=== PATIENT | male | born 1980 | race Caucasian/White ===

== ENCOUNTER 2017-10-24 14:09 | Inpatient (IN) | payer MEDICAID, SELFPAY ==
[2017-10-24] VITALS (12 sets, daily range): BP systolic 154–172; BP diastolic 96–111; PULSE 99–112; RESP 15–18; TEMP 36.6–36.8; O2SAT 95–100; BMI 34.8; BMI 34.3; BMI 34.4
--- NOTE | 2017-10-24 14:30 | EKG12_ITS ---
Test Reason : SOB Blood Pressure : / mmHG Vent. Rate : 104 BPM Atrial Rate : 104 BPM P-R Int : 132 ms QRS Dur : 098 ms QT Int : 376 ms P-R-T Axes : 025 038 045 degrees QTc Int : 494 ms Sinus tachycardia Nonspecific T wave abnormality Abnormal ECG Confirmed by LEAH VANN, NAJMA ([id number]), editorial director SARA TRAN ([id number] on 10/26/2017 1:23:27 PM Referred By: SHIRA Confirmed By:NAJMA LYNN MD
--- NOTE | 2017-10-24 14:30 | RAD_ITS ---
STUDY: X-RAY CHEST REASON FOR EXAM: Male, 37 years old. Shortness of breath TECHNIQUE: Frontal and lateral views of the chest COMPARISON: None. FINDINGS: The lungs are clear. There are no pleural effusions. There is no pneumothorax. The heart is enlarged. The visualized osseous structures are within normal limits. RAD/Chest PA and Lateral IMPRESSION: Cardiomegaly. Clear lungs. Electronically Signed: Pilo Kelly, at 15:33 EST Tel , Service support ,
[2017-10-24 14:46] LABS: Absolute Lymphocyte Count 1.15 X10^3/ul (0.83-4.51); Absolute Neutrophil Count 4.2 X10^3/uL (2.0-7.7); Basophil# 0.01 X10^3/uL; Basophil% 0.2 % (0-1); Eosinophil# 0.03 X10^3/uL; Eosinophils% 0.5 % (0-5); Hematocrit 38.1 % (40-54); Hemoglobin 11.9 g/dl (13.0-16.5); Lymphocyte # 1.15 X10^3/ul (4.0); Lymphocyte % 19.5 % (19-41); Mean Corp Hgb Conc 31.2 g/gl (32-36); Mean Corpuscular Hgb 24.8 pg (27.0-32.0); Mean Corpuscular Volume 79.4 fL (80-94); Mean Platelet Vol. 9.7 fl (6.2-12.0); Monocyte# 0.48 X10^3/uL; Monocyte% 8.1 % (0-10); Neutrophil # 4.21 X10^3/uL (2.7-7.7); Neutrophil % 71.5 % (47-70); Platelet Count 201 K/mm3 (150-450); RBC Distribution Width CV 15.2 % (11.6-14.6); RBC Distribution Width SD 43.6 fl (35.1-43.9); White Blood Count 5.9 K/mm3 (4.4-11.0)
[2017-10-24 14:47] LABS: POSITIVE COUNT NO; POSITIVE DIFFERENTIAL NO; POSITIVE MORPHOLOGY NO
[2017-10-24 14:56] LABS: D-Dimer Quantitative (DVT/PE) 0.56 FEU/ug/m (0.27-0.49)
--- NOTE | 2017-10-24 15:03 | CT_ITS ---
STUDY: CTA CHEST REASON FOR EXAM: Male, 37 years old. Dyspnea RADIATION DOSAGE (If Supplied By Facility): CTDIvol = ( 14.06 ) mGy, DLP = ( 688.02 ) mGycm TECHNIQUE: The examination was performed with the intravenous administration of 100mL ml of Isovue 370 contrast material. Post-processing of the angiographic images was performed, with multiplanar reformation and 3D reconstruction. Individualized dose optimization techniques were used for this CT. COMPARISON: None. FINDINGS: There are no filling defects within the pulmonary arteries to suggest pulmonary embolus. The pulmonary arteries are normal in caliber. There is a small left pleural effusion and moderate right pleural effusion with overlying atelectasis. There are no focal infiltrates. There is no pneumothorax. The heart is normal in size. There is a moderate pericardial effusion. There is no thoracic lymphadenopathy. Images through the upper abdomen demonstrate splenomegaly, with the spleen measuring 15.8 cm in maximal dimension. There are no destructive osseous lesions. CT/CTA Chest W/WO Contrast IMPRESSION: No evidence of pulmonary embolus. Moderate right pleural effusion and small left pleural effusion with overlying atelectasis. Moderate-sized pericardial effusion. Splenomegaly. Electronically Signed: Pilo Kelly, at 15:45 EST Tel , Service support ,
[2017-10-24 15:05] LABS: Anion Gap 8 (5-15); BUN 16 mg/dL (7-18); BUN/Creat Ratio 14.2 RATIO (10-20); Calcium,Total 8.8 mg/dL (8.5-10.1); Chloride 109 mmol/L (98-107); Creatinine, Serum 1.13 mg/dL (0.70-1.30); EST Glomerular Filtration Rate 77 mL/min (>60); Est Glom Filt Rate - Afr Amer 93 mL/min (>60); Estimated Creatinine Clearance 82.06 ml/min; Glucose 118 mg/dL (74-106); Sodium Level 143 mmol/L (136-145)
[2017-10-24 15:27] LABS: BNP,B-Type NATRIURETIC PEPTIDE 566.8 pg/mL (0-100)
--- NOTE | 2017-10-24 15:50 | ED.VISSUMM ---
- ER Visit Summary Date of Service: 10/24/17 Chief Complaint: [Shortness of breath] History of Present Illness: The patient is a 37 M [Zentz to the emergency department with worsening shortness of breath over last couple weeks. Patient started initially with some cough and congestion. Patient states that he developed swelling in both legs about a week ago that is out of the ordinary. Patient denies any chest pain. He denies recent travel or surgery. He denies any history of kidney disease. Patient states that he is unable to sleep lying flat and has been sleeping in a glider chair due to difficulty breathing while laying flat. She denies any fevers.] Physical Examination: [HEENT-PERRLA, EOMI. Cranial nerves II through XII grossly intact. TMs clear. Mucous membranes moist. No adenopathy. Patient does have mild JVD. Cardiovascular-regular rate and rhythm without murmur or ectopy Lungs-good aeration bilaterally. Patient has Rales in both bases. No significant tachypnea or accessory muscle use. Abdomen-normoactive bowel sounds, soft, nontender, no rebound or rigidity, no peritoneal signs. Extremities-intact ?4, normal range of motion, normal pulses, atraumatic]. Patient has +3 edema both lower extremities and symmetric. Test Results: [EKG obtained showed a sinus rhythm with a ventricular rate of 104 bpm with some nonspecific ST changes noted. CBC with differential showed a white count of 5.9, hemoglobin 11.9, hematocrit 38, platelets 201. Chemistries unremarkable. Troponin was 0.14. BNP was 567. D-dimer was elevated 0.56. Chest x-ray showed nothing acute. CTA of the chest was negative for PE but was noted patient had right moderate pleural effusion and a small left pleural effusion. Patient also had a moderate pericardial effusion.] Emergency Department Course and Treatment: [Patient case will be discussed with hand tufter on-call and hospitalist to evaluate patient for admission.] Treatment Plan: [Admit. At this point I did not proceed with diuretics until speaking with cardiology given the pericardial effusion.] Disposition: [Admit] Impression: [Bilateral pleural effusions Pericardial effusion CHF Mildly elevated troponin I] This note was generated with [employer] dictation software. It may contain incorrect words, spelling, and punctuation that were not noted in review of the chart prior to signing ED Disposition - Plan for ED Patient: Chief Complaint: Shortness of Breath Referrals: Augusto Mcneil MD [Primary Care Provider] -
--- NOTE | 2017-10-24 15:54 | ED.DCSUM_ITS ---
- ER Visit Summary Date of Service: 10/24/17 Chief Complaint: [Shortness of breath] History of Present Illness: The patient is a 37 M [Zentz to the emergency department with worsening shortness of breath over last couple weeks. Patient started initially with some cough and congestion. Patient states that he developed swelling in both legs about a week ago that is out of the ordinary. Patient denies any chest pain. He denies recent travel or surgery. He denies any history of kidney disease. Patient states that he is unable to sleep lying flat and has been sleeping in a glider chair due to difficulty breathing while laying flat. She denies any fevers.] Physical Examination: [HEENT-PERRLA, EOMI. Cranial nerves II through XII grossly intact. TMs clear. Mucous membranes moist. No adenopathy. Patient does have mild JVD. Cardiovascular-regular rate and rhythm without murmur or ectopy Lungs-good aeration bilaterally. Patient has Rales in both bases. No significant tachypnea or accessory muscle use. Abdomen-normoactive bowel sounds, soft, nontender, no rebound or rigidity, no peritoneal signs. Extremities-intact ?4, normal range of motion, normal pulses, atraumatic]. Patient has +3 edema both lower extremities and symmetric. Test Results: [EKG obtained showed a sinus rhythm with a ventricular rate of 104 bpm with some nonspecific ST changes noted. CBC with differential showed a white count of 5.9, hemoglobin 11.9, hematocrit 38, platelets 201. Chemistries unremarkable. Troponin was 0.14. BNP was 567. D-dimer was elevated 0.56. Chest x-ray showed nothing acute. CTA of the chest was negative for PE but was noted patient had right moderate pleural effusion and a small left pleural effusion. Patient also had a moderate pericardial effusion.] Emergency Department Course and Treatment: [Patient case will be discussed with bulb grader on-call and hospitalist to evaluate patient for admission.] Treatment Plan: [Admit. At this point I did not proceed with diuretics until speaking with cardiology given the pericardial effusion.] Disposition: [Admit] Impression: [Bilateral pleural effusions Pericardial effusion CHF Mildly elevated troponin I] This note was generated with [employer] dictation software. It may contain incorrect words, spelling, and punctuation that were not noted in review of the chart prior to signing ED Disposition - Plan for ED Patient: Chief Complaint: Shortness of Breath Referrals: Augusto Mcneil MD [Primary Care Provider] -
--- NOTE | 2017-10-24 16:45 | HP.PCM_ITS ---
Problem List (1) Congestive heart failure Status: Acute (2) Diabetes Status: Chronic (3) HTN (hypertension) Status: Chronic History of Present Illness Date of Admission: 10/24/17 Chief Complaint: SOB The patient is a 37 year old M with a history of diabetes t2 and HTN who presents to the ER with increased SOB over the past week. He felt ill about 2 weeks ago and thought he may have had a sinus infection, then about a week ago he began getting progressively more SOB. He has also had swelling in his BLE for the past 5 days. He reports orthopnea and PND over the past week as well. He has no prior history of heart disease. He has a family hx significant for cardiomyopathy, his dad had a pacemaker/defibrillator placed in his 40s. In the ER he has significantly elevated blood pressure, and a CTA with pericardial effusion and pleural effusions, an elevated troponin and elevated BNP. EKG was negative. He remains off O2 with good O2 sats but is tachycardic and sob. His BP is significantly elevated and he reports that it has not been well controlled when he is at his doctors appointments. Last A1C reportedly in the 7 range. No fevers or chills. He has a productive cough. [] Past Medical History Past Medical History (Chronic Problems): Chronic Problems Diabetes (Chronic) HTN (hypertension) (Chronic) Allergies No Known Allergies Allergy (Verified 10/24/17 14:12) Home Medications: Ambulatory Orders Medication Instructions Recorded Glimepiride [Amaryl] 4 mg PO DAILY 10/24/17 Lisinopril [Zestril] 40 mg PO DAILY 10/24/17 Metformin HCl [Glucophage] 1,000 mg PO BIDCM 10/24/17 Lives: Alone Smoking Status: Never smoker Tobacco Use: Non-smoker Alcohol: Rare Drugs: None - *Family History Paternal History Items: Heart Disease Maternal History Items: No pertinent history Review of Systems Constitutional: Reports: Malaise, Weakness, Fatigue. Denies: Chills, Fever, Weight Change HEENT: Denies: Head Aches, Sinus Congestion, Sinus Drainage Cardiovascular: Reports: Edema, Orthopnea, Paroxysmal Noc. Dyspnea. Denies: Chest Pain, Palpitations Respiratory: Reports: Cough, Shortness of Breath, Shortness of breath at rest, Shortness of breath upon exertion, Sputum production Gastrointestinal: Denies: Abdominal Pain, Nausea, Vomiting Genitourinary: Denies: Dysuria Musculoskeletal: Denies: Joint Pain, Joint Tenderness Skin: Denies: Rash, Wounds Neurological: Denies: Numbness, Tingling, Focal weakness Psychiatric: Denies: Anxiety, Depression, Homicidal Ideations, Suicidal Ideations Hematologic/ Lymphatic: Denies: Easy Bruising, Easy Bleeding VTE Information - Inpt Only VTE Present on Admission: No VTE Mechan Device Prophylaxis: SCD's VTE Pharm Prophylaxis ordered?: Yes Patient Problems: Active and Suspected Problems Congestive heart failure (Acute) - Physical Exam General: Alert, Oriented x3, Cooperative HEENT: Atraumatic, PERRLA, EOMI, Normocephalic Neck: Supple, No JVD, Negative Carotid Bruits Lungs: Clear to auscultation, Normal air movement Cardiovascular: Regular rate, Gallops - S3 audible, Tachycardic Abdomen: Bowel Sounds Present, Soft, Non Tender Extremities: No edema, Capillary Refill Less than 3 Seconds, Edema - 3+ pitting edema BLE up to the knee Skin: No rashes, No breakdown Musculoskeletal: No Tenderness to Palpation of Joints or Extremities Neurological: Cranial nerves II-XII grossly intact Psych/Mental Status: Normal Affect, Appropriate, Alert and oriented to time, place, person, mood and affect Vital Signs Temp Pulse Resp BP Pulse Ox 98 F 101 H 15 164/96 H 99 10/24/17 14:10 10/24/17 15:16 10/24/17 15:16 10/24/17 15:16 10/24/17 15:16 Oxygen Delivery Method Room Air Weight: 100.9 kg Body Mass Index (BMI) 34.8 Laboratory Tests Past 24 Hrs 10/24/17 10/24/17 10/24/17 14:35 14:35 14:35 WBC 5.9 RBC 4.80 Hgb 11.9 L Hct 38.1 L MCV 79.4 L MCH 24.8 L MCHC 31.2 L RDW 15.2 H RDW Differential 43.6 Plt Count 201 MPV 9.7 Immature Gran % (Auto) 0.200 Neut % (Auto) 71.5 H Lymph % (Auto) 19.5 [place] % (Auto) 8.1 Eos % (Auto) 0.5 Baso % (Auto) 0.2 Absolute Neuts (auto) 4.2 Absolute Lymphs (auto) 1.15 Total Counted Not Reportable D-Dimer Quant (PE/DVT) 0.56 H* Sodium 143 Potassium 4.0 Chloride 109 H Carbon Dioxide 26.0 Anion Gap 8 BUN 16 Creatinine 1.13 Estim Creat Clear Calc 82.06 Est GFR (MDRD) Af Amer 93 Est GFR (MDRD) Non-Af 77 BUN/Creatinine Ratio 14.2 Glucose 118 H Calcium 8.8 Troponin I 0.14 H B-Natriuretic Peptide 10/24/17 14:35 WBC RBC Hgb Hct MCV MCH MCHC RDW RDW Differential Plt Count MPV Immature Gran % (Auto) Neut % (Auto) Lymph % (Auto) [place] % (Auto) Eos % (Auto) Baso % (Auto) Absolute Neuts (auto) Absolute Lymphs (auto) Total Counted D-Dimer Quant (PE/DVT) Sodium Potassium Chloride Carbon Dioxide Anion Gap BUN Creatinine Estim Creat Clear Calc Est GFR (MDRD) Af Amer Est GFR (MDRD) Non-Af BUN/Creatinine Ratio Glucose Calcium Troponin I B-Natriuretic Peptide 566.8 H Assessment/Plan Active and Suspected Problems Congestive heart failure (Acute) 1. Acute CHF exacerbation - subtype unclear - no prior hx. Pt presents with SOB , orthopnea, and PND with severely swollen BLE, an elevated BNP, and pericardial effusion and pleural effusions on CTA of the chest, and cardiomegaly on CXR. He has a family hx with cardiomyopathy. He will be started on IV lasix and cardiology will be consulted. We will obtain a 2D echo. Sodium and fluid restriction, TEQUILA wraps to BLE, strict I/Os. Aerosols prn for SOB. Not currently requiring O2. He is already on an TEQUILA inhibitor. Will defer starting beta cassia in acute phase, but he is tachy at admission. Will maintain on tele. Audible S3 on exam. 2. Indeterminate troponin - negative EKG. Cycle troponin. Repeat EKG in AM. 3. T2DM - hold metformin as has had contrast and will be diuresed. Sliding scale coverage. Reported last A1C around 7. 4. HTN - poorly controlled. Possibly hypertensive cardiomyopathy. 5. Mild microcytic anemia - check iron studies. DVT ppx: lovenox, SCDs This patient was seen by Jerome Gunter PA-C under the supervision of Doctor Char.
[2017-10-24 17:04] LABS: Bacteria 0 SEEN /hpf (None Seen); Mucous, Urine 0 SEEN /hpf (<or=2+); Squamous Epithelial Cells - UA 0 SEEN /hpf (0-5); White Blood Cells 0 SEEN /hpf (0-5)
[2017-10-24 17:17] LABS: Color, Urine Yellow (Yellow); Glucose, Dipstick Normal (Normal); Ketone-Dipstick Negative (Negative); Leukocyte Esterase-Dipstick Negative /ul (Negative); Nitrite-Dipstick Negative (Negative); Occult Blood-Urine 150 /ul (Negative); Protein-Dipstick 30 mg/dl (Negative); Urine Bilirubin Dipstick Negative (Negative); Urine Clarity Clear (Clear); Urine Urobilinogen Normal (Normal)
[2017-10-24 17:29] LABS: Red Blood Cells-Urine 0-5 SEEN /hpf (0-5)
--- NOTE | 2017-10-24 17:31 | ECHOD_ITS ---
Reason For Study: SOB, CHF Procedure This was a 2D Doppler, Color Flow transthoracic echocardiogram. The exam was of adequate technical quality. Exam performed portable in patient room. Left Ventricle Mildly dilated left ventricle. Severe global left ventricular systolic dysfunction. The estimated ejection fraction is 25 %. Right Ventricle Normal RV size. Normal systolic function. Atria The left atrium is mildly enlarged. Borderline enlarged right atrium. No doppler evidence for ASD. Mitral Valve There is no mitral annular calcification. Mild diffuse mitral valve thickening. Mild papillary muscle dysfunction of the mitral valve. Moderately severe (3+) eccentric mitral valve insufficiency. Tricuspid Valve Normal tricuspid valve. Moderate (2+) eccentric tricuspid valve insufficiency. Right ventricular systolic pressure estimated to be 42 mmHg. Aortic Valve Trisinus/trileaflet aortic valve. Normal aortic valve. Pulmonic Valve Normal pulmonic valve. Trivial pulmonic valve insufficiency. Great Vessels Normal sized aortic root. Pericardium/Pleural Small to moderate pericardial effusion. There are no echocardiographic indications of cardiac tamponade. MMode/2D Measurements & Calculations LVIDd: 5.4 cm IVSd: 1.3 cm Ao root diam: 3.1 cm LVIDs: 4.8 cm LVPWd: 1.2 cm LA dimension: 4.5 cm RVDd: 4.3 cm FS: 11.2 % LAV(MOD-sp4): 72.7 ml EDV(MOD-sp4): 178.9 ml EDV(MOD-sp2): 171.2 ml ESV(MOD-sp4): 120.2 ml EF(MOD-sp2): 33.4 % EF(MOD-sp4): 32.8 % SV(MOD-sp4): 58.7 ml SV(MOD-sp2): 57.3 ml LA A4 area: 24.2 cm2 RA A4 area: 18.8 cm2 Doppler Measurements & Calculations MV E max manuel: 118.7 cm/sec Lat Peak E' Manuel: 9.8 cm/sec Med Peak E' Manuel: 5.2 cm/sec MV A max manuel: 51.9 cm/sec E/E' lat: 12.1 E/E' med: 22.7 MV E/A: 2.3 Ao V2 max: 89.2 cm/sec LV V1 max: 60.0 cm/sec PA V2 max: 54.9 cm/sec Ao max P.2 mmHg LV V1 max P.4 mmHg TR max manuel: 310.9 cm/sec TR max P.7 mmHg Interpretation Summary Mildly dilated left ventricle. Severe global left ventricular systolic dysfunction. The estimated ejection fraction is 25 %. The left atrium is mildly enlarged. Borderline enlarged right atrium. Mild diffuse mitral valve thickening. Mild papillary muscle dysfunction of the mitral valve. Moderately severe (3+) eccentric mitral valve insufficiency. Moderate (2+) eccentric tricuspid valve insufficiency. Trivial pulmonic valve insufficiency. Small to moderate pericardial effusion. There are no echocardiographic indications of cardiac tamponade. Right ventricular systolic pressure estimated to be 42 mmHg. Transmitral diastolic flow velocities suggest diastolic dysfunction. Ordering Physician: Gabriele Pardo Performed By: Philomena Mccrary, ENISHA, RVT
--- NOTE | 2017-10-24 17:34 | PCM.CONS.C ---
Problem List (1) Congestive heart failure Status: Acute (2) Pericardial effusion Status: Acute (3) Cardiomyopathy Status: Acute (4) Valvular heart disease Status: Acute (5) HTN (hypertension) Status: Chronic (6) Diabetes Status: Chronic Reason for Consult Date of Consultation: 10/24/17 History of Present Illness: The patient is a 37 year old white male with a past medical history of hypertension and diabetes mellitus who presents for evaluation of shortness of breath/dyspnea, orthopnea, peripheral pitting edema, with subsequent findings of marked hypertension, and abnormal chest x-ray/chest CT scan suggesting pericardial effusion. The patient states that he has become progressively short of breath and dyspneic, especially over the last week, leading to symptoms compatible with orthopnea and PND, as well as physical examination findings compatible with progressive bilateral lower extremity peripheral pitting edema. He has denied obvious fever, chills, night sweats, or cough with sputum production. There has been no associated chest discomfort. There has been no near syncope or syncope. He notes his blood pressure has been somewhat challenging to control. He has remained on antihypertensive therapy medication with no change in medication regimen or dosage recently. He continues to remain on medical therapy for his diabetes. He presented to the emergency department for the aforementioned concerns. On evaluation he was noted to be markedly hypertensive. He was noted to have evidence of bilateral peripheral pitting edema. His laboratory studies suggested an elevated BNP level and an elevated d-dimer. He underwent chest x-ray and chest CT scan. He had no great vessel disease or thromboembolic disease based upon the preliminary report, however, there were concerns of a pericardial effusion. He states he has had no cardiovascular testing in the past to the best of his recollection. Past Medical History Allergies/Adverse Reactions: Allergies No Known Allergies Allergy (Verified 10/24/17 14:12) Home Medications: Ambulatory Orders Medication Instructions Recorded Glimepiride [Amaryl] 4 mg PO DAILY 10/24/17 Lisinopril [Zestril] 40 mg PO DAILY 10/24/17 Metformin HCl [Glucophage] 1,000 mg PO BIDCM 10/24/17 Past Medical History (Chronic Problems): Chronic Problems Diabetes (Chronic) HTN (hypertension) (Chronic) - *Family History Paternal History Items: Heart Disease Maternal History Items: No pertinent history Lives: Alone Smoking Status: Never smoker Tobacco Use: Non-smoker Alcohol: Rare Drugs: None Review of Systems - Review of Systems General: Denies: Fever, Night Sweats, Fatigue Cardiovascular: Reports: Shortness of Breath, Shortness of Breath at Rest, Orthopnea, PND. Denies: Chest Discomfort, Peripheral Edema, Palpitations, Lightheadedness, Dizziness, Near Syncope, Syncope Respiratory: Reports: Shortness of Breath. Denies: Cough, Sputum Production, Hemoptysis Gastrointestinal: Denies: Hematemesis, Hematochezia, Melena Genitourinary: Denies: Dysuria, Hematuria Skin: Denies: Rash Subjectve: This is a 37-year-old white male who appears to be resting comfortably at the moment in no acute distress. Objective: Vital Signs Temp Pulse Resp BP Pulse Ox 98 F 103 H 15 172/111 H 99 10/24/17 14:10 10/24/17 16:45 10/24/17 16:45 10/24/17 16:45 10/24/17 16:45 Oxygen Delivery Method Room Air General: Awake, Alert, Oriented x 3, Cooperative, No Acute Distress Neck: No JVD Lungs: Diminished Simon Bases Cardiovascular: Regular Rhythm, Normal S1, Normal S2, Positive S4 Murmur Murmur: Grade 3/6, Soft, Holosystolic, LLSB, [place], Axilla Vascular: No Carotid Bruits Abdomen: Bowel Sounds Present, Soft, Non Tender Extremities: Moderate RLE Edema, Moderate LLE Edema Neurological: No Focal Motor or Sensory Deficit Rhythm: Sinus rhythm EKG: Sinus rhythm; nonspecific T-wave abnormality ECHO: Portable hand-held bedside limited transthoracic echocardiogram: Left ventricle: Appears globally hypokinetic; mitral valve: Insufficient-mild to moderate; tricuspid valve: Insufficient-mild to moderate; pericardial space: Mild to moderate pericardial effusion with no echocardiographic evidence of cardiac tamponade physiology (I. E. Early RA/RV collapse); formal transthoracic echocardiogram pending CXR: As noted above Chest CT Scan: As noted above Assessment/Plan 1. Congestive heart failure The patient presents with signs and symptoms and objective findings compatible with congestive heart failure. Based upon his bedside portable handheld limited echocardiographic images there is concern of diminished LV systolic function. The etiology is uncertain at this time. There are concerns this may be related to underlying hypertensive heart disease based upon the patient's blood pressure recordings. Also, based on the patient's history of diabetes mellitus there may be concern of microvascular disease and subsequent cardiomyopathy. However, other etiologies, based on the patient's risk factors such as underlying premature CAD, or primary cardiomyopathies such as viral mediated events, etc., cannot be excluded at this time. At the present time the patient will be placed in the hospital for further evaluation and care. He will continue cardiac rhythm monitoring, laboratory studies, ECG follow-up, and he is pending a formal transthoracic echocardiogram. He may eventually need further noninvasive or invasive studies to define his cardiovascular disease and assist with diagnosis and care. In the interim he will initiate medical management. This may include nitrates as needed, beta-blockers as he is stabilized, diuretics with electrolyte supplementation, afterload reducing agents, etc. During this time the patient will be monitored for symptomatic improvement. However he will be monitored for any obvious adverse response as well. 2. Pericardial effusion The patient does have an underlying pericardial effusion. This may be secondary to the findings of the underlying cardiomyopathy and congestive heart failure. He does not appear to demonstrate evidence of pericardial tamponade physiology at this time. As he undergoes evaluation and care for his CHF, with respect to diuretic therapy, he will continue to be monitored for any obvious adverse response including marked hypotension that may indicate a change in his underlying cardiac physiology that would warrant further evaluation and care. 3. Cardiomyopathy Upon the patient's evaluation thus far there is concern of an underlying cardiomyopathy. A more formal evaluation with a formal transthoracic echocardiogram is pending. Again the etiology appears unclear at this time. The possibilities include the aforementioned possibilities. At the present time he will need to continue to be monitored. He will need continued medical therapy. As his clinical course stabilizes this will include agents such as beta blockers and his afterload reducing agents. Again, as his clinical course proceeds, he may need additional noninvasive or invasive studies to further define his cardiomyopathy, assist with diagnosis, and therapy. 4. Valvular heart disease He does have underlying valvular heart disease based on examination in the aforementioned bedside portable hand-held limited echocardiographic images. These findings suggest mild to moderate MR/TR. This may be secondary to his underlying appearance of a cardiomyopathy. This will need to be followed over time by examination and echocardiographic studies. 5. Hypertension He is noted to be markedly hypertensive. Again this may be an etiology for his presentation and subsequent findings. He will need to be treated medically. His medications may need to be adjusted to bring his blood pressure under better control. 6. Diabetes mellitus Continue evaluation care per internal medicine. Comment: The above was discussed and reviewed with the patient, Dr. Judd of the [facility] emergency department staff, and Dr. Olson of the [facility] hospitalist staff. This note was generated with [employer] software. Every effort was made to ensure accuracy, however, computerized storage garage attendant mistakes may persist.
[2017-10-24 17:51] LABS: Bedside Glucose 71 mg/dL (70-110)
[2017-10-24] MEDS: Aspirin 81 MG TAB.CHEW PO (18:21)
[2017-10-24] MEDS: Furosemide 20 MG/2 ML VIAL IV (21:36)
[2017-10-24] MEDS: 0.9% NaCl Peripheral Flush Adult/Peds IV (21:39)
[2017-10-24 21:56] LABS: Bedside Glucose 105 mg/dL (70-110)
[2017-10-25] VITALS (15 sets, daily range): BP systolic 135–152; BP diastolic 88–106; PULSE 89–106; RESP 16–18; TEMP 36.2–37; O2SAT 95–100
--- NOTE | 2017-10-25 01:05 | NURSING ---
PT CALLED THIS RN INTO ROOM STATED I FEEL LIKE MY BLOOD PRESSURE IS LOW. BG 67, SNACK PROVIDED.
[2017-10-25 02:02] LABS: Bedside Glucose 67 mg/dL (70-110)
[2017-10-25 02:02] LABS: Bedside Glucose 104 mg/dL (70-110)
[2017-10-25] MEDS: 0.9% NaCl Peripheral Flush Adult/Peds IV ×4 (05:38→21:55)
[2017-10-25] MEDS: Furosemide 20 MG/2 ML VIAL IV ×3 (05:38→21:54)
--- NOTE | 2017-10-25 05:55 | EKG12_ITS ---
Test Reason : AM EKG Blood Pressure : / mmHG Vent. Rate : 102 BPM Atrial Rate : 102 BPM P-R Int : 138 ms QRS Dur : 096 ms QT Int : 356 ms P-R-T Axes : 029 031 060 degrees QTc Int : 463 ms Sinus tachycardia Nonspecific T wave abnormality Abnormal ECG When compared with ECG of 24-OCT-2017 14:41, MANUAL COMPARISON REQUIRED, DATA IS UNCONFIRMED Confirmed by TERESA VANN, KALEE ([id number]), editor greeting card SARA TRAN ([id number]) on 10/27/2017 2:01:14 PM Referred By: DR VAZQUEZ Confirmed By:KALEE MOORE MD
[2017-10-25 06:04] LABS: Anion Gap 7 (5-15); BUN 16 mg/dL (7-18); BUN/Creat Ratio 13.8 RATIO (10-20); Calcium,Total 8.8 mg/dL (8.5-10.1); Chloride 105 mmol/L (98-107); Cholesterol 100 mg/dL (200); Creatinine, Serum 1.16 mg/dL (0.70-1.30); EST Glomerular Filtration Rate 74 mL/min (>60); Est Glom Filt Rate - Afr Amer 90 mL/min (>60); Estimated Creatinine Clearance 79.93 ml/min; Glucose 103 mg/dL (74-106); High Density Lipoprotein 27 mg/dL; Potassium 3.7 mmol/L (3.5-5.1); Sodium Level 140 mmol/L (136-145); Triglycerides 90 mg/dL; Very Low Density Lipoprotein 18 mg/dL (5-40)
[2017-10-25] MEDS: Labetalol 20 MG/4 ML Vial 5 MG IV (06:13)
[2017-10-25 07:06] LABS: Bedside Glucose 108 mg/dL (70-110)
[2017-10-25 08:48] LABS: Ferritin 32 ng/mL (26-388); Iron 28 ug/dL (65-175); Iron Binding Capacity,Total 291 ug/dL (250-450); PERCENT IRON SATURATION 9.6 % (15.0-55.0)
[2017-10-25] MEDS: Lisinopril 40 MG Tablet PO (10:23)
[2017-10-25] MEDS: Aspirin 81 MG TAB.CHEW PO (10:23)
[2017-10-25] MEDS: Glimepiride 4 MG Tablet PO (10:23)
[2017-10-25] MEDS: Carvedilol 3.125 MG TABLET PO ×2 (10:24→21:53)
[2017-10-25] MEDS: Glucerna Shake 120 ML LIQUID PO (10:25)
--- NOTE | 2017-10-25 12:12 | PN_ITS ---
Patient Problems: Active and Suspected Problems Congestive heart failure (Acute) Cardiomyopathy (Acute) Pericardial effusion (Acute) Valvular heart disease (Acute) Subjective: Pt reports improvement in his SOB and orthopnea overnight. He has no O2 requirement still. Legs are significantly less swollen than at admission. He is not sure if he is emptying his bladder fully so we will check post void, no prior prostate issues. No chest pain or heaviness. No palp. - Physical Exam General: Alert, Oriented x3, Cooperative HEENT: Atraumatic, PERRLA, EOMI, Normocephalic Neck: Supple, No JVD, Negative Carotid Bruits Lungs: Clear to auscultation, Normal air movement Cardiovascular: Regular rate, Murmur - S3, Tachycardic Abdomen: Bowel Sounds Present, Soft, Non Tender Extremities: Capillary Refill Less than 3 Seconds, Edema - improved. 2+ pitting edema BLE Skin: No rashes, No breakdown Musculoskeletal: No Tenderness to Palpation of Joints or Extremities Neurological: Cranial nerves II-XII grossly intact Psych/Mental Status: Normal Affect, Appropriate, Alert and oriented to time, place, person, mood and affect Vital Signs Temp Pulse Resp BP Pulse Ox 97.8 F 95 18 149/93 H 95 10/25/17 10:01 10/25/17 10:01 10/25/17 10:01 10/25/17 10:01 10/25/17 10:01 Oxygen Delivery Method Room Air Weight: 98.9 kg Body Mass Index (BMI) 34.3 Intake and Output for Last 24 Hours 10/23/17 10/24/17 10/25/17 23:59 23:59 23:59 Intake Total 240 / 240 450 / 450 Output Total 1900 / 1900 Balance 240 / 240 -1450 / -1450 Laboratory Tests Past 24 Hrs 10/24/17 10/24/17 10/25/17 18:20 22:30 04:30 Sodium Potassium Chloride Carbon Dioxide Anion Gap BUN Creatinine Estim Creat Clear Calc Est GFR (MDRD) Af Amer Est GFR (MDRD) Non-Af BUN/Creatinine Ratio Glucose Calcium Iron 28 L TIBC 291 Iron Saturation 9.6 L Ferritin 32 Troponin I 0.14 H 0.15 H Triglycerides Cholesterol LDL Cholesterol VLDL Cholesterol HDL Cholesterol 10/25/17 10/25/17 04:33 04:33 Sodium 140 Potassium 3.7 Chloride 105 Carbon Dioxide 28.0 Anion Gap 7 BUN 16 Creatinine 1.16 Estim Creat Clear Calc 79.93 Est GFR (MDRD) Af Amer 90 Est GFR (MDRD) Non-Af 74 BUN/Creatinine Ratio 13.8 Glucose 103 Calcium 8.8 Iron TIBC Iron Saturation Ferritin Troponin I 0.14 H Triglycerides 90 Cholesterol 100 LDL Cholesterol 55 VLDL Cholesterol 18 HDL Cholesterol 27 L POC Glucose 10/25/17 10/25/17 10/25/17 07:00 01:57 01:01 POC Glucose 108 104 67 L 10/24/17 10/24/17 21:32 17:47 POC Glucose 105 71 Assessment/Plan Active and Suspected Problems Congestive heart failure (Acute) Cardiomyopathy (Acute) Pericardial effusion (Acute) Valvular heart disease (Acute) 1. Acute CHF exacerbation - subtype unclear - no prior hx. Pt presented with SOB , orthopnea, and PND with severely swollen BLE, an elevated BNP, and pericardial effusion and pleural effusions on CTA of the chest, and cardiomegaly on CXR. He is improving on IV lasix with less orthopnea. He was seen by Dr. Murphy last night and had a bedside ultrasound. He will have a 2d echo tomorrow. Troponin is flat but indeterminate. -He has good output. -D dimer was elevated, CTA neg for PE. -remains tachy, will be started on coreg. -lisinopril increased. -lungs clear on exam. -also started on aspirin -LDL is at goal -check post void, he is unsure about completely emptying his bladder. 2. Indeterminate troponin - negative EKG. No CP. Flat. 3. T2DM - Glycemic control is good. metformin held as has had contrast and will be diuresed. Sliding scale coverage. Reported last A1C around 7. 4. HTN - poorly controlled at home, improving. Possibly hypertensive cardiomyopathy. Medications adjusted as per #1. 5. Mild microcytic anemia - iron studies demonstrate iron deficiency, will begin PO iron. DVT ppx: lovenox, SCDs This patient was seen by Jerome Gunter PA-C under the supervision of Doctor Pardo.
[2017-10-25 12:56] LABS: Bedside Glucose 147 mg/dL (70-110)
--- NOTE | 2017-10-25 13:26 | PN.CARD_ITS ---
Subjectve: The patient states he is breathing better today. However he still cannot lie supine for any prolonged period of time. He continues with lower extremity edema although he states this is improved somewhat. Objective: Vital Signs Temp Pulse Resp BP Pulse Ox 97.8 F 95 18 149/93 H 95 10/25/17 10:01 10/25/17 10:01 10/25/17 10:01 10/25/17 10:01 10/25/17 10:01 Oxygen Delivery Method Room Air Weight: 218 lb 0.595 oz Body Mass Index (BMI) 34.3 Intake and Output for Last 24 Hours 10/23/17 10/24/17 10/25/17 23:59 23:59 23:59 Intake Total 240 / 240 1050 / 1050 Output Total 3200 / 3200 Balance 240 / 240 -2150 / -2150 General: Awake, Alert, Oriented x 3, Cooperative, No Acute Distress Neck: No JVD Lungs: Diminished [place]mon Bases Cardiovascular: Regular Rhythm, Normal S1, Normal S2 Murmur Murmur: Grade 3/6, Soft, Holosystolic, LLSB, [place], Axilla Vascular: No Carotid Bruits Abdomen: Bowel Sounds Present, Soft, Non Tender Extremities: Mild RLE Edema, Mild LLE Edema Neurological: No Focal Motor or Sensory Deficit 10/24/17 18:20: Troponin I 0.14 H 10/24/17 22:30: Troponin I 0.15 H 10/25/17 04:30: Iron 28 L, TIBC 291, Iron Saturation 9.6 L, Ferritin 32 10/25/17 04:33: Sodium 140, Potassium 3.7, Chloride 105, Carbon Dioxide 28.0, Anion Gap 7, BUN 16, Creatinine 1.16, Est GFR (MDRD) Af Amer 90, Est GFR (MDRD) Non-Af 74, BUN/Creatinine Ratio 13.8, Glucose 103, Calcium 8.8, Triglycerides 90 , Cholesterol 100, LDL Cholesterol 55, VLDL Cholesterol 18, HDL Cholesterol 27 L 10/25/17 04:33: Troponin I 0.14 H Rhythm: Sinus rhythm EKG: Sinus rhythm; nonspecific T-wave abnormality Assessment/Plan 1. Congestive heart failure The patient presents with signs and symptoms and objective findings compatible with congestive heart failure. Based upon his bedside portable handheld limited echocardiographic images there is concern of diminished LV systolic function. The etiology is uncertain at this time. There are concerns this may be related to underlying hypertensive heart disease based upon the patient's blood pressure recordings. Also, based on the patient's history of diabetes mellitus there may be concern of microvascular disease and subsequent cardiomyopathy. However, other etiologies, based on the patient's risk factors such as underlying premature CAD, or primary cardiomyopathies such as viral mediated events, etc., cannot be excluded at this time. He continues to be monitored. He continues medical management. This includes IV diuretics. He has had positive urine output. He will initiate additional medical therapy with beta-blockers. His TEQUILA inhibitor will be divided on a twice daily basis. During this time the patient will be monitored for symptomatic improvement. However he will be monitored for any obvious adverse response as well. 2. Pericardial effusion The patient does have an underlying pericardial effusion. This may be secondary to the findings of the underlying cardiomyopathy and congestive heart failure. He does not appear to demonstrate evidence of pericardial tamponade physiology at this time. As he undergoes evaluation and care for his CHF, with respect to diuretic therapy, he will continue to be monitored for any obvious adverse response including marked hypotension that may indicate a change in his underlying cardiac physiology that would warrant further evaluation and care. 3. Cardiomyopathy Upon the patient's evaluation thus far there is concern of an underlying cardiomyopathy. A more formal evaluation with a formal transthoracic echocardiogram is pending. Again the etiology appears unclear at this time. The possibilities include the aforementioned possibilities. At the present time he will need to continue to be monitored. He will need continued medical therapy. Again, as his clinical course proceeds, he may need additional noninvasive or invasive studies to further define his cardiomyopathy, assist with diagnosis, and therapy. 4. Valvular heart disease He does have underlying valvular heart disease based on examination in the aforementioned bedside portable hand-held limited echocardiographic images. These findings suggest mild to moderate MR/TR. This may be secondary to his underlying appearance of a cardiomyopathy. This will need to be followed over time by examination and echocardiographic studies. 5. Hypertension He is noted to be markedly hypertensive. Again this may be an etiology for his presentation and subsequent findings. He will need to be treated medically. His medications may need to be adjusted to bring his blood pressure under better control. 6. Diabetes mellitus Continue evaluation care per internal medicine. Comment: The above was discussed and reviewed with the patient, his family members present, and Dr. Pardo. This note was generated with [employer] software. Every effort was made to ensure accuracy, however, computerized patient flow coordinator mistakes may persist.
[2017-10-25 16:46] LABS: Bedside Glucose 127 mg/dL (70-110)
[2017-10-25 21:56] LABS: Bedside Glucose 135 mg/dL (70-110)
[2017-10-26] VITALS (11 sets, daily range): BP systolic 124–143; BP diastolic 81–95; PULSE 83–113; RESP 16–18; TEMP 36.2–36.7; O2SAT 98–100
[2017-10-26 06:39] LABS: Anion Gap 9 (5-15); BUN 18 mg/dL (7-18); BUN/Creat Ratio 15.1 RATIO (10-20); Calcium,Total 8.7 mg/dL (8.5-10.1); Chloride 105 mmol/L (98-107); Creatinine, Serum 1.19 mg/dL (0.70-1.30); EST Glomerular Filtration Rate 72 mL/min (>60); Est Glom Filt Rate - Afr Amer 87 mL/min (>60); Estimated Creatinine Clearance 77.92 ml/min; Glucose 96 mg/dL (74-106); Potassium 3.7 mmol/L (3.5-5.1); Sodium Level 140 mmol/L (136-145)
[2017-10-26] MEDS: Furosemide 20 MG/2 ML VIAL IV ×2 (06:55→17:20)
[2017-10-26] MEDS: 0.9% NaCl Peripheral Flush Adult/Peds IV ×2 (06:58→17:20)
[2017-10-26 07:05] LABS: Bedside Glucose 91 mg/dL (70-110)
[2017-10-26] MEDS: Glimepiride 4 MG Tablet PO (07:45)
[2017-10-26] MEDS: Ferrous Sulfate 325 MG Tablet PO (07:45)
[2017-10-26] MEDS: Aspirin 81 MG TAB.CHEW PO (07:45)
[2017-10-26] MEDS: Lisinopril 20 MG Tablet PO ×2 (10:27→21:52)
[2017-10-26] MEDS: Carvedilol 6.25 MG Tablet PO ×2 (10:27→21:52)
--- NOTE | 2017-10-26 11:23 | PN_ITS ---
Patient Problems: Active and Suspected Problems Congestive heart failure (Acute) Cardiomyopathy (Acute) Pericardial effusion (Acute) Valvular heart disease (Acute) Subjective: Pt continues to improve. He was able to lay flat for the echo and feels less pressure when laying flat. He is less SOB and BLE edema is significantly improved. Urine output is good. He is agreeable to heart cath tomorrow. - Physical Exam General: Alert, Oriented x3, Cooperative HEENT: Atraumatic, PERRLA, EOMI, Normocephalic Neck: Supple, No JVD, Negative Carotid Bruits Lungs: Clear to auscultation, Normal air movement Cardiovascular: Regular rate, Murmur - there is a 2/6 decrescendo diastolic murmur most audible over the 4th intercostal space at both left and right sternal border, I can no longer hear S3, Tachycardic Abdomen: Bowel Sounds Present, Soft, Non Tender Extremities: No edema, Capillary Refill Less than 3 Seconds Skin: No rashes, No breakdown Musculoskeletal: No Tenderness to Palpation of Joints or Extremities Neurological: Cranial nerves II-XII grossly intact Psych/Mental Status: Normal Affect, Appropriate Vital Signs Temp Pulse Resp BP Pulse Ox 97.8 F 89 18 131/83 H 99 10/26/17 10:20 10/26/17 10:20 10/26/17 10:20 10/26/17 10:20 10/26/17 10:20 Oxygen Delivery Method Room Air Weight: 97.1 kg Body Mass Index (BMI) 34.3 Intake and Output for Last 24 Hours 10/24/17 10/25/17 10/26/17 23:59 23:59 23:59 Intake Total 240 / 240 1150 / 1150 300 / 300 Output Total 4900 / 4900 350 / 350 Balance 240 / 240 -3750 / -3750 -50 / -50 Laboratory Tests Past 24 Hrs 10/26/17 05:42 Sodium 140 Potassium 3.7 Chloride 105 Carbon Dioxide 26.0 Anion Gap 9 BUN 18 Creatinine 1.19 Estim Creat Clear Calc 77.92 Est GFR (MDRD) Af Amer 87 Est GFR (MDRD) Non-Af 72 BUN/Creatinine Ratio 15.1 Glucose 96 Calcium 8.7 POC Glucose 10/26/17 10/25/17 10/25/17 06:55 21:51 16:40 POC Glucose 91 135 H 127 H 10/25/17 12:50 POC Glucose 147 H Assessment/Plan Active and Suspected Problems Congestive heart failure (Acute) Cardiomyopathy (Acute) Pericardial effusion (Acute) Valvular heart disease (Acute) 1. Acute systolic CHF exacerbation complicated by cardiomyopathy and mod/sev MVI , moderate TVI, and pulmonary HTN- Echo with EF 25%, severe global LV sys dys, 3 + MVI, 2+ TVI, RVSP 42mmHg, small to moderate pericardial effusion, no tamponade. Heart Cath tomorrow. Pt symptoms improving. Diuresis is good. Cardio following. Lungs remain clear despite imaging with effusions. Pt on coreg, asa, TEQUILA inhibitor. Renal function and K normal. Symptoms have all improved. 2. Indeterminate troponin - negative EKG. No CP. Flat troponin. 3. T2DM - Glycemic control is good. metformin held as has had contrast. Sliding scale coverage. Reported last A1C around 7. 4. HTN - coreg increased. 5. Mild microcytic anemia - iron studies demonstrate iron deficiency, PO iron. DVT ppx: lovenox, SCDs This patient was seen by Jerome Gunter PA-C under the supervision of Doctor Pardo.
--- NOTE | 2017-10-26 11:41 | PCM.PN.CARD ---
Subjectve: The patient states that he is breathing better overall. He notes his lower extremity edema is improving. Objective: Vital Signs Temp Pulse Resp BP Pulse Ox 97.8 F 83 18 131/83 H 99 10/26/17 10:20 10/26/17 11:25 10/26/17 10:20 10/26/17 10:20 10/26/17 10:20 Oxygen Delivery Method Room Air Weight: 214 lb 1.102 oz Body Mass Index (BMI) 34.3 Intake and Output for Last 24 Hours 10/24/17 10/25/17 10/26/17 23:59 23:59 23:59 Intake Total 240 / 240 1150 / 1150 300 / 300 Output Total 4900 / 4900 350 / 350 Balance 240 / 240 -3750 / -3750 -50 / -50 General: Awake, Alert, Oriented x 3, Cooperative, No Acute Distress Neck: No JVD Lungs: Diminished Simon Bases - Improved compared to previous examination Cardiovascular: Regular Rhythm, Normal S1, Normal S2 Vascular: No Carotid Bruits Abdomen: Bowel Sounds Present, Soft, Non Tender Extremities: Mild RLE Edema, Mild LLE Edema 10/26/17 05:42: Sodium 140, Potassium 3.7, Chloride 105, Carbon Dioxide 26.0, Anion Gap 9, BUN 18, Creatinine 1.19, Est GFR (MDRD) Af Amer 87, Est GFR (MDRD) Non-Af 72, BUN/Creatinine Ratio 15.1, Glucose 96, Calcium 8.7 Rhythm: Sinus rhythm ECHO: Mildly dilated left ventricle; global left ventricular systolic dysfunction; estimated LVEF of 25%; mild left atrial enlargement; mild diffuse mitral valve thickening; mild papillary muscle dysfunction; moderately severe eccentric mitral valve regurgitation; moderate tricuspid regurgitation; trivial [place]; small to moderate pericardial effusion with no obvious echocardiographic evidence of cardiac tamponade physiology; estimated RV systolic pressure 42 mmHg; decreased diastolic compliance; please see official report Assessment/Plan 1. Congestive heart failure The patient presents with signs and symptoms and objective findings compatible with congestive heart failure. More formal evaluation with transthoracic echocardiogram. The findings are as noted above. These findings appear compatible with an underlying cardiomyopathy. There are concerns this may be related to underlying hypertensive heart disease based upon the patient's blood pressure recordings. Also, based on the patient's history of diabetes mellitus there may be concern of microvascular disease and subsequent cardiomyopathy. However, other etiologies, based on the patient's risk factors such as underlying premature CAD, or primary cardiomyopathies such as viral mediated events, etc., cannot be excluded at this time. There is valvular heart disease. However it is unclear at this time whether this is a primary event versus secondary to the underlying cardiomyopathy and tracheal dilatation and systolic dysfunction. He continues to be monitored. He continues medical management. This includes IV diuretics. He has had positive urine output. Therapy with adjustment of dose as he is able. His TEQUILA inhibitor will be divided on a twice daily basis. 2. Pericardial effusion The patient does have an underlying pericardial effusion. This may be secondary to the findings of the underlying cardiomyopathy and congestive heart failure. He does not appear to have any obvious acute infectious related symptoms at this time. He does not appear to demonstrate evidence of pericardial tamponade physiology at this time. As he undergoes evaluation and care for his CHF, with respect to diuretic therapy, he will continue to be monitored for any obvious adverse response including marked hypotension that may indicate a change in his underlying cardiac physiology that would warrant further evaluation and care. The pericardial effusion will need to be monitored over time with respect to its response to his ongoing evaluation and medical management. 3. Cardiomyopathy Upon the patient's evaluation thus far there is concern of an underlying cardiomyopathy. Again the etiology appears unclear at this time. The possibilities include the aforementioned possibilities. At the present time he will need to continue to be monitored. He will need continued medical therapy. Again, as his clinical course proceeds, he may need additional noninvasive or invasive studies to further define his cardiomyopathy, assist with diagnosis, and therapy. 4. Valvular heart disease His transthoracic echocardiogram does concern underlying MR and TR. This may be secondary to his underlying appearance of a cardiomyopathy. This will need to be followed over time by examination and echocardiographic studies. 5. Hypertension He is noted to be markedly hypertensive. Again this may be an etiology for his presentation and subsequent findings. His medications may need to be adjusted to bring his blood pressure under better control. 6. Diabetes mellitus Continue evaluation care per internal medicine. Comment: The above was discussed and reviewed with the patient and Dr. Pardo. This note was generated with [employer] software. Every effort was made to ensure accuracy, however, computerized dining service inspector mistakes may persist.
[2017-10-26 11:51] LABS: Bedside Glucose 177 mg/dL (70-110)
--- NOTE | 2017-10-26 11:52 | PN.CARD_ITS ---
Subjectve: The patient states that he is breathing better overall. He notes his lower extremity edema is improving. Objective: Vital Signs Temp Pulse Resp BP Pulse Ox 97.8 F 83 18 131/83 H 99 10/26/17 10:20 10/26/17 11:25 10/26/17 10:20 10/26/17 10:20 10/26/17 10:20 Oxygen Delivery Method Room Air Weight: 214 lb 1.102 oz Body Mass Index (BMI) 34.3 Intake and Output for Last 24 Hours 10/24/17 10/25/17 10/26/17 23:59 23:59 23:59 Intake Total 240 / 240 1150 / 1150 300 / 300 Output Total 4900 / 4900 350 / 350 Balance 240 / 240 -3750 / -3750 -50 / -50 General: Awake, Alert, Oriented x 3, Cooperative, No Acute Distress Neck: No JVD Lungs: Diminished Simon Bases - Improved compared to previous examination Cardiovascular: Regular Rhythm, Normal S1, Normal S2 Vascular: No Carotid Bruits Abdomen: Bowel Sounds Present, Soft, Non Tender Extremities: Mild RLE Edema, Mild LLE Edema 10/26/17 05:42: Sodium 140, Potassium 3.7, Chloride 105, Carbon Dioxide 26.0, Anion Gap 9, BUN 18, Creatinine 1.19, Est GFR (MDRD) Af Amer 87, Est GFR (MDRD) Non-Af 72, BUN/Creatinine Ratio 15.1, Glucose 96, Calcium 8.7 Rhythm: Sinus rhythm ECHO: Mildly dilated left ventricle; global left ventricular systolic dysfunction; estimated LVEF of 25%; mild left atrial enlargement; mild diffuse mitral valve thickening; mild papillary muscle dysfunction; moderately severe eccentric mitral valve regurgitation; moderate tricuspid regurgitation; trivial [place]; small to moderate pericardial effusion with no obvious echocardiographic evidence of cardiac tamponade physiology; estimated RV systolic pressure 42 mmHg ; decreased diastolic compliance; please see official report Assessment/Plan 1. Congestive heart failure The patient presents with signs and symptoms and objective findings compatible with congestive heart failure. More formal evaluation with transthoracic echocardiogram. The findings are as noted above. These findings appear compatible with an underlying cardiomyopathy. There are concerns this may be related to underlying hypertensive heart disease based upon the patient's blood pressure recordings. Also, based on the patient' s history of diabetes mellitus there may be concern of microvascular disease and subsequent cardiomyopathy. However, other etiologies, based on the patient' s risk factors such as underlying premature CAD, or primary cardiomyopathies such as viral mediated events, etc., cannot be excluded at this time. There is valvular heart disease. However it is unclear at this time whether this is a primary event versus secondary to the underlying cardiomyopathy and tracheal dilatation and systolic dysfunction. He continues to be monitored. He continues medical management. This includes IV diuretics. He has had positive urine output. Therapy with adjustment of dose as he is able. His TEQUILA inhibitor will be divided on a twice daily basis. 2. Pericardial effusion The patient does have an underlying pericardial effusion. This may be secondary to the findings of the underlying cardiomyopathy and congestive heart failure. He does not appear to have any obvious acute infectious related symptoms at this time. He does not appear to demonstrate evidence of pericardial tamponade physiology at this time. As he undergoes evaluation and care for his CHF, with respect to diuretic therapy, he will continue to be monitored for any obvious adverse response including marked hypotension that may indicate a change in his underlying cardiac physiology that would warrant further evaluation and care. The pericardial effusion will need to be monitored over time with respect to its response to his ongoing evaluation and medical management. 3. Cardiomyopathy Upon the patient's evaluation thus far there is concern of an underlying cardiomyopathy. Again the etiology appears unclear at this time. The possibilities include the aforementioned possibilities. At the present time he will need to continue to be monitored. He will need continued medical therapy. Again, as his clinical course proceeds, he may need additional noninvasive or invasive studies to further define his cardiomyopathy, assist with diagnosis, and therapy. 4. Valvular heart disease His transthoracic echocardiogram does concern underlying MR and TR. This may be secondary to his underlying appearance of a cardiomyopathy. This will need to be followed over time by examination and echocardiographic studies. 5. Hypertension He is noted to be markedly hypertensive. Again this may be an etiology for his presentation and subsequent findings. His medications may need to be adjusted to bring his blood pressure under better control. 6. Diabetes mellitus Continue evaluation care per internal medicine. Comment: The above was discussed and reviewed with the patient and Dr. Pardo. This note was generated with [employer] software. Every effort was made to ensure accuracy, however, computerized rubber moulding machine operator mistakes may persist.
--- NOTE | 2017-10-26 12:57 | CASEMGMT ---
According to [facility] website, the following are in-network tertiary facilities: [facility], [facility], [place], [facility], [facility], [facility], [facility], and . [facility] LINDSAY CM
[2017-10-26 13:00] LABS: ALB/GLOB Ratio 1.2 RATIO (0.9-2.4); Albumin, Serum 3.6 g/dL (3.2-5.0); Globulin 3.1 g/dL (2.2-4.2); Protein, Total 6.7 g/dL (6.4-8.2)
[2017-10-26 13:47] LABS: Thyroid Stim Hormone (TSH) 0.67 uIU/mL (0.358-3.74)
[2017-10-26 14:05] LABS: AST(SGOT) 17 U/L (15-37); Alanine Aminotransfer ALT/SGPT 21 U/L (16-61); Albumin, Serum 3.6 g/dL (3.2-5.0); Alkaline Phosphatase 65 U/L (45-117); Bilirubin, Direct 0.28 mg/dL (0.00-0.30); Globulin 3.2 g/dL (2.2-4.2); Protein, Total 6.8 g/dL (6.4-8.2)
[2017-10-26 17:16] LABS: Bedside Glucose 117 mg/dL (70-110)
[2017-10-26] MEDS: Acetaminophen 325 MG Tablet 650 MG PO (21:55)
[2017-10-26 22:51] LABS: Bedside Glucose 151 mg/dL (70-110)
[2017-10-27] VITALS (18 sets, daily range): BP systolic 126–148; BP diastolic 75–97; PULSE 77–96; RESP 16–18; TEMP 36.5–36.9; O2SAT 97–100
[2017-10-27] MEDS: Nystatin Powder 15gm Bottle 1 APPLIC TOPICAL ×2 (01:15→08:29)
[2017-10-27 05:53] LABS: Absolute Lymphocyte Count 1.01 X10^3/ul (0.83-4.51); Absolute Neutrophil Count 6.2 X10^3/uL (2.0-7.7); Basophil# 0.03 X10^3/uL; Basophil% 0.4 % (0-1); Eosinophil# 0.02 X10^3/uL; Eosinophils% 0.2 % (0-5); Hematocrit 37.8 % (40-54); Hemoglobin 12.3 g/dl (13.0-16.5); Lymphocyte # 1.01 X10^3/ul (4.0); Lymphocyte % 12.5 % (19-41); Mean Corp Hgb Conc 32.5 g/gl (32-36); Mean Corpuscular Hgb 25.3 pg (27.0-32.0); Mean Corpuscular Volume 77.6 fL (80-94); Mean Platelet Vol. 10.7 fl (6.2-12.0); Monocyte# 0.76 X10^3/uL; Monocyte% 9.4 % (0-10); Neutrophil # 6.22 X10^3/uL (2.7-7.7); Neutrophil % 77.4 % (47-70); Platelet Count 215 K/mm3 (150-450); RBC Distribution Width CV 15.4 % (11.6-14.6); RBC Distribution Width SD 42.9 fl (35.1-43.9); Red Blood Count 4.87 M/mm3 (4.6-6.2); White Blood Count 8.1 K/mm3 (4.4-11.0)
[2017-10-27 05:55] LABS: International Normalized Ratio 1.4; Prothrombin Time (Protime)PT. 16.4 SECONDS (11.7-14.9)
--- NOTE | 2017-10-27 05:55 | EKG12_ITS ---
Test Reason : AM Blood Pressure : / mmHG Vent. Rate : 099 BPM Atrial Rate : 099 BPM P-R Int : 138 ms QRS Dur : 112 ms QT Int : 374 ms P-R-T Axes : 037 032 055 degrees QTc Int : 479 ms Normal sinus rhythm T wave abnormality, consider anterior ischemia Prolonged QT Abnormal ECG Confirmed by LEAH VANN, NAJMA ([id number]), graphics editor SARA TRAN ([id number]) on 10/28/2017 1:32:55 PM Referred By: FLORENCIA Confirmed By:NAJMA LYNN MD
[2017-10-27 05:56] LABS: Partial Thromboplast Time 37.3 Seconds (24.1-36.2)
[2017-10-27 05:57] LABS: POSITIVE COUNT NO; POSITIVE DIFFERENTIAL NO; POSITIVE MORPHOLOGY NO
[2017-10-27 06:09] LABS: Anion Gap 9 (5-15); BUN 23 mg/dL (7-18); BUN/Creat Ratio 18.3 RATIO (10-20); Calcium,Total 8.7 mg/dL (8.5-10.1); Chloride 104 mmol/L (98-107); Creatinine, Serum 1.26 mg/dL (0.70-1.30); EST Glomerular Filtration Rate 68 mL/min (>60); Est Glom Filt Rate - Afr Amer 82 mL/min (>60); Estimated Creatinine Clearance 73.59 ml/min; Glucose 103 mg/dL (74-106); Potassium 4.1 mmol/L (3.5-5.1); Sodium Level 139 mmol/L (136-145)
[2017-10-27] MEDS: Lisinopril 20 MG Tablet PO (06:48)
[2017-10-27] MEDS: Carvedilol 6.25 MG Tablet PO (06:48)
[2017-10-27] MEDS: Aspirin 81 MG TAB.CHEW PO (06:48)
[2017-10-27] MEDS: 0.9% Normal Saline 1,000 ML 15 ML IV (06:49)
[2017-10-27 07:05] LABS: Bedside Glucose 96 mg/dL (70-110)
--- NOTE | 2017-10-27 09:28 | NURSING ---
verbal report given to leda pires in equipment operator/laborer/supervisor
--- NOTE | 2017-10-27 09:48 | PCM.PN.CARD ---
Subjectve: The patient states his breathing continues to improve. He continues with an element of bilateral lower extremity peripheral pitting edema. Objective: Vital Signs Temp Pulse Resp BP Pulse Ox 98.5 F 77 18 126/75 H 98 10/27/17 08:51 10/27/17 08:51 10/27/17 08:51 10/27/17 08:51 10/27/17 08:51 Oxygen Delivery Method Room Air Weight: 219 lb 5.759 oz Body Mass Index (BMI) 34.3 Intake and Output for Last 24 Hours 10/25/17 10/26/17 10/27/17 23:59 23:59 23:59 Intake Total 1150 / 1150 1520 / 1520 300 / 300 Output Total 4900 / 4900 1750 / 1750 200 / 200 Balance -3750 / -3750 -230 / -230 100 / 100 General: Awake, Alert, Oriented x 3, Cooperative Lungs: Clear to auscultation Cardiovascular: Regular Rhythm, Normal S1, Normal S2 Murmur Murmur: Grade 3/6, Soft, Holosystolic, LLSB, [place], Axilla Vascular: No Carotid Bruits Abdomen: Bowel Sounds Present, Soft, Non Tender Extremities: - - Mild to moderate bilateral lower extremity peripheral pitting edema 10/26/17 05:42: Total Bilirubin 1.10 H, Direct Bilirubin 0.28 10/27/17 05:18: Sodium 139, Potassium 4.1, Chloride 104, Carbon Dioxide 26.0, Anion Gap 9, BUN 23 H, Creatinine 1.26, Est GFR (MDRD) Af Amer 82, Est GFR (MDRD) Non-Af 68, BUN/Creatinine Ratio 18.3, Glucose 103, Calcium 8.7 10/27/17 05:18: WBC 8.1, RBC 4.87, Hgb 12.3 L, Hct 37.8 L, MCV 77.6 L, MCH 25.3 L, MCHC 32.5, RDW 15.4 H, RDW Differential 42.9, Plt Count 215, MPV 10.7, Immature Gran % (Auto) 0.100, Neut % (Auto) 77.4 H, Lymph % (Auto) 12.5 L, [place] % (Auto) 9.4, Eos % (Auto) 0.2, Baso % (Auto) 0.4, Absolute Neuts (auto) 6.2, Total Counted Not Reportable 10/27/17 05:18: PT 16.4 H, INR 1.4, APTT 37.3 H Rhythm: EKG: ECHO: Stress Test: Cardiac Cath: PCI: CT Surgery: Holter monitor: EPS: PPM: CXR: Chest CT Scan: Assessment/Plan 1. Congestive heart failure The patient presents with signs and symptoms and objective findings compatible with congestive heart failure. More formal evaluation with transthoracic echocardiogram. The findings are as noted above. These findings appear compatible with an underlying cardiomyopathy. There are concerns this may be related to underlying hypertensive heart disease based upon the patient's blood pressure recordings. Also, based on the patient's history of diabetes mellitus there may be concern of microvascular disease and subsequent cardiomyopathy. However, other etiologies, based on the patient's risk factors such as underlying premature CAD, or primary cardiomyopathies such as viral mediated events, etc., cannot be excluded at this time. There is valvular heart disease. However it is unclear at this time whether this is a primary event versus secondary to the underlying cardiomyopathy and tracheal dilatation and systolic dysfunction. He has had additional studies with respect to hepatic studies, protein studies, and thyroid studies. These studies have been unremarkable. He continues to be monitored. He continues medical management. This includes IV diuretics. He has had positive urine output. 2. Pericardial effusion The patient does have an underlying pericardial effusion. This may be secondary to the findings of the underlying cardiomyopathy and congestive heart failure. He does not appear to have any obvious acute infectious related symptoms at this time. He does not appear to demonstrate evidence of pericardial tamponade physiology at this time. As he undergoes evaluation and care for his CHF, with respect to diuretic therapy, he will continue to be monitored for any obvious adverse response including marked hypotension that may indicate a change in his underlying cardiac physiology that would warrant further evaluation and care. The pericardial effusion will need to be monitored over time with respect to its response to his ongoing evaluation and medical management. 3. Cardiomyopathy Upon the patient's evaluation thus far there is concern of an underlying cardiomyopathy. Again the etiology appears unclear at this time. The possibilities include the aforementioned possibilities. At the present time he will need to continue to be monitored. He will need continued medical therapy. 4. Valvular heart disease His transthoracic echocardiogram does concern underlying MR and TR. This may be secondary to his underlying appearance of a cardiomyopathy. This will need to be followed over time by examination and echocardiographic studies. 5. Hypertension He is noted to be markedly hypertensive. Again this may be an etiology for his presentation and subsequent findings. His medications may need to be adjusted to bring his blood pressure under better control. 6. Diabetes mellitus He will continue evaluation care per internal medicine. The present time the patient will continue to be observed. He will proceed with medical management. He will proceed with further evaluation with diagnostic cardiac catheterization. This procedure has been discussed with the patient with respect to the risks and benefits and pros and cons. He was agreeable to this approach. Comment: The above was discussed and reviewed with the patient. This note was generated with [employer] software. Every effort was made to ensure accuracy, however, computerized retail administrative assistant mistakes may persist.
--- NOTE | 2017-10-27 09:51 | PN.CARD_ITS ---
Subjectve: The patient states his breathing continues to improve. He continues with an element of bilateral lower extremity peripheral pitting edema. Objective: Vital Signs Temp Pulse Resp BP Pulse Ox 98.5 F 77 18 126/75 H 98 10/27/17 08:51 10/27/17 08:51 10/27/17 08:51 10/27/17 08:51 10/27/17 08:51 Oxygen Delivery Method Room Air Weight: 219 lb 5.759 oz Body Mass Index (BMI) 34.3 Intake and Output for Last 24 Hours 10/25/17 10/26/17 10/27/17 23:59 23:59 23:59 Intake Total 1150 / 1150 1520 / 1520 300 / 300 Output Total 4900 / 4900 1750 / 1750 200 / 200 Balance -3750 / -3750 -230 / -230 100 / 100 General: Awake, Alert, Oriented x 3, Cooperative Lungs: Clear to auscultation Cardiovascular: Regular Rhythm, Normal S1, Normal S2 Murmur Murmur: Grade 3/6, Soft, Holosystolic, LLSB, [place], Axilla Vascular: No Carotid Bruits Abdomen: Bowel Sounds Present, Soft, Non Tender Extremities: - - Mild to moderate bilateral lower extremity peripheral pitting edema 10/26/17 05:42: Total Bilirubin 1.10 H, Direct Bilirubin 0.28 10/27/17 05:18: Sodium 139, Potassium 4.1, Chloride 104, Carbon Dioxide 26.0, Anion Gap 9, BUN 23 H, Creatinine 1.26, Est GFR (MDRD) Af Amer 82, Est GFR (MDRD ) Non-Af 68, BUN/Creatinine Ratio 18.3, Glucose 103, Calcium 8.7 10/27/17 05:18: WBC 8.1, RBC 4.87, Hgb 12.3 L, Hct 37.8 L, MCV 77.6 L, MCH 25.3 L, MCHC 32.5, RDW 15.4 H, RDW Differential 42.9, Plt Count 215, MPV 10.7, Immature Gran % (Auto) 0.100, Neut % (Auto) 77.4 H, Lymph % (Auto) 12.5 L, [place] % (Auto) 9.4, Eos % (Auto) 0.2, Baso % (Auto) 0.4, Absolute Neuts (auto) 6.2, Total Counted Not Reportable 10/27/17 05:18: PT 16.4 H, INR 1.4, APTT 37.3 H Rhythm: EKG: ECHO: Stress Test: Cardiac Cath: PCI: CT Surgery: Holter monitor: EPS: PPM: CXR: Chest CT Scan: Assessment/Plan 1. Congestive heart failure The patient presents with signs and symptoms and objective findings compatible with congestive heart failure. More formal evaluation with transthoracic echocardiogram. The findings are as noted above. These findings appear compatible with an underlying cardiomyopathy. There are concerns this may be related to underlying hypertensive heart disease based upon the patient's blood pressure recordings. Also, based on the patient' s history of diabetes mellitus there may be concern of microvascular disease and subsequent cardiomyopathy. However, other etiologies, based on the patient' s risk factors such as underlying premature CAD, or primary cardiomyopathies such as viral mediated events, etc., cannot be excluded at this time. There is valvular heart disease. However it is unclear at this time whether this is a primary event versus secondary to the underlying cardiomyopathy and tracheal dilatation and systolic dysfunction. He has had additional studies with respect to hepatic studies, protein studies, and thyroid studies. These studies have been unremarkable. He continues to be monitored. He continues medical management. This includes IV diuretics. He has had positive urine output. 2. Pericardial effusion The patient does have an underlying pericardial effusion. This may be secondary to the findings of the underlying cardiomyopathy and congestive heart failure. He does not appear to have any obvious acute infectious related symptoms at this time. He does not appear to demonstrate evidence of pericardial tamponade physiology at this time. As he undergoes evaluation and care for his CHF, with respect to diuretic therapy, he will continue to be monitored for any obvious adverse response including marked hypotension that may indicate a change in his underlying cardiac physiology that would warrant further evaluation and care. The pericardial effusion will need to be monitored over time with respect to its response to his ongoing evaluation and medical management. 3. Cardiomyopathy Upon the patient's evaluation thus far there is concern of an underlying cardiomyopathy. Again the etiology appears unclear at this time. The possibilities include the aforementioned possibilities. At the present time he will need to continue to be monitored. He will need continued medical therapy. 4. Valvular heart disease His transthoracic echocardiogram does concern underlying MR and TR. This may be secondary to his underlying appearance of a cardiomyopathy. This will need to be followed over time by examination and echocardiographic studies. 5. Hypertension He is noted to be markedly hypertensive. Again this may be an etiology for his presentation and subsequent findings. His medications may need to be adjusted to bring his blood pressure under better control. 6. Diabetes mellitus He will continue evaluation care per internal medicine. The present time the patient will continue to be observed. He will proceed with medical management. He will proceed with further evaluation with diagnostic cardiac catheterization. This procedure has been discussed with the patient with respect to the risks and benefits and pros and cons. He was agreeable to this approach. Comment: The above was discussed and reviewed with the patient. This note was generated with [employer] software. Every effort was made to ensure accuracy, however, computerized transportation escort mistakes may persist.
--- NOTE | 2017-10-27 11:22 | CL.D_ITS ---
Patient Name: JACINDA WELSH Study Date: 10/27/2017 Performing: Augusto Murphy MD Ht: 66.92 inches 170 cm : 1980 Wt: 202.83 lbs 92 kg Age: 37 Gender: male BSA: 2.03 PROCEDURE(S) PERFORMED EW83-ELF/LHC/COR/LV CLINICAL PROFILE AND INDICATIONS INDICATIONS: Shortness of Breath, Congestive Heart Failure, New onset, Dilated Idiopathic Cardiom yopathy, Valvular heart disease, Mitral valve regurgitation, Pericardial effusion Stress/Imaging Stress/Image Study Performed: No Angina Classification Anginal Classification w/in 2 Weeks: No symptoms CAD Presentations: Other: Shortness of Breath CONCLUSIONS Elevated Left Ventricular End Diastolic Pressure Right heart pressures - moderately to severely elevated The patient has pulmonary hypertension which is moderate to severe. Intracardiac shunting: None Global LV systolic dysfunction- Severe LVEF: by LV gram 20 % Mitral Valve Insufficiency Moderate RECOMMENDATIONS Risk factor modification Medical therapy Consider tertiary care center evaluation for: myocardial viability; coronary artery revascularization therapy; possible MV repair; and pericardial effusion evaluation with pericardial window procedure w ith pericardial biopsy / pericardiocentesis DESCRIPTION OF PROCEDURE The patient arrived to the procedure lab. The risks and benefits of the procedure as well as a full d escription of our services here and current unavailability of surgical backup were fully explained to the patient and/or their significant other prior to the catheterization. The Timeout was completed, verifying the correct patient and procedure. The patient's procedural site was prepped and draped in the usual fashion. Local anesthetic was given subcutaneously to right groin region with Lidocaine 2%. Using a modified Seldinger technique, arterial access was obtained via the right femoral artery, a 4 Fr sheath was inserted Venous access was obtained via the right femoral vein, a 7Fr sheath was insert ed. A 7Fr thermal dilution catheter was inserted and right heart pressures were recorded, it was then advanced to PA position for cardiac outputs. O2 saturations were then obtained. Thermal dilution car diac outputs were then recorded. Left Ventriculography was performed in OBRIEN projection using a 4 Fr. Pigtail catheter. LV to AO pullback pressures were then recorded. Simultaneous pressures were then re corded. Left Coronary Artery selective angiography was performed in multiple views using a 4 Fr. JL4 catheter. Right Coronary Artery selective angiography was then performed in multiple views using a 4 Fr. JR4 catheter.The arterial sheath was pulled and manual compression applied until hemostasis is ac hieved.. The venous sheath was then pulled and manual compression applied until hemostasis achieved CORONARY ANGIOGRAPHY DOMINANCE: Right Dominant LEFT HEART ASSESSMENT Left Ventricular Ejection Fraction: by LV Gram 20 % Global Hypokinesis - Severe Elevated Left Ventricular End Diastolic Pressure LVEDP: 25 mmHg RIGHT HEART ASSESSMENT Thermal CO: 4.26 Thermal CI: 2.1 Brayan CO: 6.21 Brayan CI: 3.06 PW: 17 PA: 48 31 RV: 46/0 16 RA: 07/26 11 PVR: 263 SVR: 1746 Aortic Valve Area: >3.50 Aortic Valve Index: 1.72 Aortic Valve Mean Gradient: 11.5 Mitral Valve Area: 1.93 Mitral Valve index: 0.95 Mitral Valve Mean Gradient: 8.9 Right Heart pressures - elevated Pulmonary Hypertension Intracardiac shunting: None LEFT MAIN: Angiographically normal LEFT ANTERIOR DECENDING ARTERY: PROX LAD: is occluded CIRCUMFLEX ARTERY: Angiographically normal RAMUS: Angiographically normal RIGHT CORONARY ARTERY: PROX RCA: Mild luminal irregularities COLLATERAL FLOW: Collateral flow from Right to Left (RCA distribution to LAD distribution) VALVE FINDINGS: Normal Aortic Valve function Mitral Valve Insufficiency - Grade 2 AORTIC ROOT: Angiographically normal COMPLICATIONS No Complications PROCEDURE MEDICATIONS Versed 1 mg IV SUMMARY OF HEMODYNAMIC DATA Time AIR REST ECG 09:57:48 RA 07/26 (11) SV 10:24:56 RV 46/0, 16 10:28:45 PW (17) PV 10:30:37 PA (31) PA 10:30:50 LV 130/5, 25 10:38:34 PW (20) 10:38:34 LV 127/6, 25 10:38:40 PW (19) 10:38:40 LV 129/5, 26 10:40:47 PW (20) 10:40:47 LVp 127/-2, 22 10:41:01 AOp 132/77 (101) 10:41:06 PA (32) 10:41:14 RV 52/5, 16 10:41:27 RA (19) 10:41:37 AO 137/76 (104) SA 10:41:54 Valve Area (c P-P/ms Time AIR REST Mitral 1.94 8.9 mn/248 ms 10:38:40 Aortic 3.50 11.5 mn/54 ms 10:41:01 Type SV CO (l/m) CI (l/m/ HR Time AIR REST Thermal 52.00 4.26 2.10 82 09:57:48 Brayan 75.70 6.21 3.06 82 09:57:48 Label % O2 Pres/Loc Time AIR REST IVC 70 SV 10:39:11 SVC 59 10:39:17 PA 60 PA 10:39:20 AO 96 PV 10:39:23 Signed By Augusto Murphy MD On 10/27/2017 11:21:42 Augusto Murphy MD
[2017-10-27 11:51] LABS: Blood Gas Specimen Type VEN; VBG BASE EXCESS 1 mmol/L (-1.0-3.5); VBG Bicarbonate 25 mmol/L (22-26); VBG Oxygen Content 26 mmol/L (23-33); VBG PO2 35 mmHg (25-40); VBG SO2 70 % (50-70); VBG pCO2 36.3 mmHg (41-51); VBG pH 7.45 (7.32-7.42)
[2017-10-27 11:51] LABS: Base Excess -3 mmol/L (-2 to +2); Bicarbonate 21.9 mmol/L (22-26); Blood Gas Specimen Type ART; PO2 78 mmHG (75-100); SO2 96 % (95-99); Total Carbon Dioxide 23 mmol/L; pCO2 33.7 mmHg (35-45); pH 7.42 (7.35-7.45)
[2017-10-27 11:51] LABS: Blood Gas Specimen Type VEN; VBG BASE EXCESS -1 mmol/L (-1.0-3.5); VBG Bicarbonate 24 mmol/L (22-26); VBG Oxygen Content 25 mmol/L (23-33); VBG PO2 31 mmHg (25-40); VBG SO2 60 % (50-70); VBG pH 7.41 (7.32-7.42)
[2017-10-27 11:51] LABS: Blood Gas Specimen Type VEN; VBG BASE EXCESS -1 mmol/L (-1.0-3.5); VBG Bicarbonate 24 mmol/L (22-26); VBG Oxygen Content 25 mmol/L (23-33); VBG PO2 31 mmHg (25-40); VBG SO2 59 % (50-70); VBG pCO2 39.5 mmHg (41-51)
--- NOTE | 2017-10-27 12:00 | NURSING ---
this nurse completed post cardiac assessment with nursing school student.
--- NOTE | 2017-10-27 12:15 | NURSING ---
this nurse complted post cardiac assessment with nursing professor
[2017-10-27] MEDS: Glucerna Shake 120 ML LIQUID PO (13:04)
[2017-10-27] MEDS: Ferrous Sulfate 325 MG Tablet PO (13:05)
[2017-10-27] MEDS: Furosemide 20 MG/2 ML VIAL IV (13:05)
[2017-10-27] MEDS: Glimepiride 4 MG Tablet PO (13:05)
[2017-10-27 13:16] LABS: Bedside Glucose 81 mg/dL (70-110)
--- NOTE | 2017-10-27 13:43 | PCM.PROGNOTE ---
<Jerome Gunter - Last Filed: 10/27/17 13:43> Patient Problems: Active and Suspected Problems Congestive heart failure (Acute) Cardiomyopathy (Acute) Pericardial effusion (Acute) Valvular heart disease (Acute) Subjective: Pt with no further SOB laying flat, overall no SOB, swelling improved drastically. No CP. No cough. He underwent cath today with Dr. Murphy. - Physical Exam General: Alert, Oriented x3, Cooperative HEENT: Atraumatic, PERRLA, EOMI, Normocephalic Neck: Supple, No JVD, Negative Carotid Bruits Lungs: Clear to auscultation, Normal air movement Cardiovascular: Regular rate, No murmurs Abdomen: Bowel Sounds Present, Soft, Non Tender Extremities: No edema, Capillary Refill Less than 3 Seconds Skin: No rashes, No breakdown Musculoskeletal: No Tenderness to Palpation of Joints or Extremities Neurological: Cranial nerves II-XII grossly intact Psych/Mental Status: Normal Affect, Appropriate Vital Signs Temp Pulse Resp BP Pulse Ox 98.2 F 85 16 134/90 H 98 10/27/17 11:32 10/27/17 13:30 10/27/17 13:30 10/27/17 13:30 10/27/17 13:30 Oxygen Delivery Method Room Air Weight: 99.5 kg Body Mass Index (BMI) 34.3 Intake and Output for Last 24 Hours 10/25/17 10/26/17 10/27/17 23:59 23:59 23:59 Intake Total 1150 / 1150 1520 / 1520 300 / 300 Output Total 4900 / 4900 1750 / 1750 200 / 200 Balance -3750 / -3750 -230 / -230 100 / 100 Laboratory Tests Past 24 Hrs 10/26/17 10/26/17 10/27/17 05:42 05:42 05:18 WBC RBC Hgb Hct MCV MCH MCHC RDW RDW Differential Plt Count MPV Immature Gran % (Auto) Neut % (Auto) Lymph % (Auto) [place] % (Auto) Eos % (Auto) Baso % (Auto) Absolute Neuts (auto) Absolute Lymphs (auto) Total Counted PT INR APTT Specimen Type pH Bicarbonate Actual POC Total CO2 Base Excess O2 Saturation ABG pCO2 ABG pO2 VBG pH VBG pO2 VBG O2 Sat (Calc) VBG O2 Content VBG Base Excess POC Mix VBG pCO2 Pt Tmp Sodium 139 Potassium 4.1 Chloride 104 Carbon Dioxide 26.0 Anion Gap 9 BUN 23 H Creatinine 1.26 Estim Creat Clear Calc 73.59 Est GFR (MDRD) Af Amer 82 Est GFR (MDRD) Non-Af 68 BUN/Creatinine Ratio 18.3 Glucose 103 Calcium 8.7 Total Bilirubin 1.10 H Direct Bilirubin 0.28 AST 17 ALT 21 Alkaline Phosphatase 65 Total Protein 6.8 Albumin 3.6 Globulin 3.2 TSH 0.67 10/27/17 10/27/17 10/27/17 05:18 05:18 10:26 WBC 8.1 RBC 4.87 Hgb 12.3 L Hct 37.8 L MCV 77.6 L MCH 25.3 L MCHC 32.5 RDW 15.4 H RDW Differential 42.9 Plt Count 215 MPV 10.7 Immature Gran % (Auto) 0.100 Neut % (Auto) 77.4 H Lymph % (Auto) 12.5 L [place] % (Auto) 9.4 Eos % (Auto) 0.2 Baso % (Auto) 0.4 Absolute Neuts (auto) 6.2 Absolute Lymphs (auto) 1.01 Total Counted Not Reportable PT 16.4 H INR 1.4 APTT 37.3 H Specimen Type SAV pH Bicarbonate Actual POC Total CO2 Base Excess O2 Saturation ABG pCO2 ABG pO2 VBG pH 7.45 H VBG pO2 35 VBG O2 Sat (Calc) 70 VBG O2 Content 26 VBG Base Excess 1 POC Mix VBG pCO2 Pt Tmp 36.3 L Sodium Potassium Chloride Carbon Dioxide Anion Gap BUN Creatinine Estim Creat Clear Calc Est GFR (MDRD) Af Amer Est GFR (MDRD) Non-Af BUN/Creatinine Ratio Glucose Calcium Total Bilirubin Direct Bilirubin AST ALT Alkaline Phosphatase Total Protein Albumin Globulin TSH 10/27/17 10/27/17 10/27/17 10:30 10:33 10:36 WBC RBC Hgb Hct MCV MCH MCHC RDW RDW Differential Plt Count MPV Immature Gran % (Auto) Neut % (Auto) Lymph % (Auto) [place] % (Auto) Eos % (Auto) Baso % (Auto) Absolute Neuts (auto) Absolute Lymphs (auto) Total Counted PT INR APTT Specimen Type SAV SAV ART pH 7.42 Bicarbonate Actual 21.9 L POC Total CO2 23 Base Excess -3 L O2 Saturation 96 ABG pCO2 33.7 L ABG pO2 78 VBG pH 7.40 7.41 VBG pO2 31 31 VBG O2 Sat (Calc) 59 60 VBG O2 Content 25 25 VBG Base Excess -1 -1 POC Mix VBG pCO2 Pt Tmp 39.5 L 37.0 L Sodium Potassium Chloride Carbon Dioxide Anion Gap BUN Creatinine Estim Creat Clear Calc Est GFR (MDRD) Af Amer Est GFR (MDRD) Non-Af BUN/Creatinine Ratio Glucose Calcium Total Bilirubin Direct Bilirubin AST ALT Alkaline Phosphatase Total Protein Albumin Globulin TSH POC Glucose 10/27/17 10/27/17 10/26/17 13:03 06:51 21:50 POC Glucose 81 96 151 H 10/26/17 17:01 POC Glucose 117 H Assessment/Plan Active and Suspected Problems Congestive heart failure (Acute) Cardiomyopathy (Acute) Pericardial effusion (Acute) Valvular heart disease (Acute) 1. Acute systolic CHF exacerbation complicated by cardiomyopathy and mod/sev MVI, moderate TVI, and pulmonary HTN- Echo with EF 25%, severe global LV sys dys, 3+ MVI, 2+ TVI, RVSP 42mmHg, small to moderate pericardial effusion, no tamponade. Symptoms drastically improved. Diuresis is good. Cardio following. Lungs remain clear despite imaging with effusions. Pt on coreg, asa, TEQUILA inhibitor. Renal function and K normal. Symptoms have all improved. -Cath today. EF 20% Severe global LV systolic dysfunction, Right heart pressure mod to severely increased, moderate to severe pulmonary htn, moderate mitral valve insufficiency -Possible tertiary care center eval. 2. Indeterminate troponin - negative EKG. No CP. Flat troponin. 3. T2DM - Glycemic control is good. metformin held as has had contrast. Sliding scale coverage. Reported last A1C around 7. 4. HTN - improved. 5. Mild microcytic anemia - improved. iron studies demonstrate iron deficiency, PO iron. DVT ppx: lovenox, SCDs DC planning: possible tertiary transfer. This patient was seen by Jerome Gunter PA-C under the supervision of Doctor Byrne. <Demarcus Byrne - Last Filed: 10/27/17 14:31> - Physical Exam General: Alert, Cooperative HEENT: Atraumatic, Normocephalic Neck: Supple, No JVD, Negative Carotid Bruits Lungs: Clear to auscultation, Normal air movement Cardiovascular: Regular rate, Regular Rhythm, Normal S1, Normal S2, No murmurs Abdomen: Bowel Sounds Present, Soft, Non Tender, Non-Distended Extremities: No edema, No Calf Tenderness Skin: No rashes, No breakdown Psych/Mental Status: Normal Affect, Appropriate Vital Signs Temp Pulse Resp BP Pulse Ox 36.8 C 85 16 134/90 H 99 10/27/17 11:32 10/27/17 13:30 10/27/17 13:30 10/27/17 13:30 10/27/17 14:00 Oxygen Delivery Method Room Air Weight: 99.5 kg Body Mass Index (BMI) 34.3 Intake and Output for Last 24 Hours 10/25/17 10/26/17 10/27/17 23:59 23:59 23:59 Intake Total 1150 / 1150 1520 / 1520 300 / 300 Output Total 4900 / 4900 1750 / 1750 725 / 725 Balance -3750 / -3750 -230 / -230 -425 / -425 Laboratory Tests Past 24 Hrs 10/27/17 10/27/17 10/27/17 05:18 05:18 05:18 WBC 8.1 RBC 4.87 Hgb 12.3 L Hct 37.8 L MCV 77.6 L MCH 25.3 L MCHC 32.5 RDW 15.4 H RDW Differential 42.9 Plt Count 215 MPV 10.7 Immature Gran % (Auto) 0.100 Neut % (Auto) 77.4 H Lymph % (Auto) 12.5 L [place] % (Auto) 9.4 Eos % (Auto) 0.2 Baso % (Auto) 0.4 Absolute Neuts (auto) 6.2 Absolute Lymphs (auto) 1.01 Total Counted Not Reportable PT 16.4 H INR 1.4 APTT 37.3 H Specimen Type pH Bicarbonate Actual POC Total CO2 Base Excess O2 Saturation ABG pCO2 ABG pO2 VBG pH VBG pO2 VBG O2 Sat (Calc) VBG O2 Content VBG Base Excess POC Mix VBG pCO2 Pt Tmp Sodium 139 Potassium 4.1 Chloride 104 Carbon Dioxide 26.0 Anion Gap 9 BUN 23 H Creatinine 1.26 Estim Creat Clear Calc 73.59 Est GFR (MDRD) Af Amer 82 Est GFR (MDRD) Non-Af 68 BUN/Creatinine Ratio 18.3 Glucose 103 Calcium 8.7 10/27/17 10/27/17 10/27/17 10:26 10:30 10:33 WBC RBC Hgb Hct MCV MCH MCHC RDW RDW Differential Plt Count MPV Immature Gran % (Auto) Neut % (Auto) Lymph % (Auto) [place] % (Auto) Eos % (Auto) Baso % (Auto) Absolute Neuts (auto) Absolute Lymphs (auto) Total Counted PT INR APTT Specimen Type SAV SAV SAV pH Bicarbonate Actual POC Total CO2 Base Excess O2 Saturation ABG pCO2 ABG pO2 VBG pH 7.45 H 7.40 7.41 VBG pO2 35 31 31 VBG O2 Sat (Calc) 70 59 60 VBG O2 Content 26 25 25 VBG Base Excess 1 -1 -1 POC Mix VBG pCO2 Pt Tmp 36.3 L 39.5 L 37.0 L Sodium Potassium Chloride Carbon Dioxide Anion Gap BUN Creatinine Estim Creat Clear Calc Est GFR (MDRD) Af Amer Est GFR (MDRD) Non-Af BUN/Creatinine Ratio Glucose Calcium 10/27/17 10:36 WBC RBC Hgb Hct MCV MCH MCHC RDW RDW Differential Plt Count MPV Immature Gran % (Auto) Neut % (Auto) Lymph % (Auto) [place] % (Auto) Eos % (Auto) Baso % (Auto) Absolute Neuts (auto) Absolute Lymphs (auto) Total Counted PT INR APTT Specimen Type ART pH 7.42 Bicarbonate Actual 21.9 L POC Total CO2 23 Base Excess -3 L O2 Saturation 96 ABG pCO2 33.7 L ABG pO2 78 VBG pH VBG pO2 VBG O2 Sat (Calc) VBG O2 Content VBG Base Excess POC Mix VBG pCO2 Pt Tmp Sodium Potassium Chloride Carbon Dioxide Anion Gap BUN Creatinine Estim Creat Clear Calc Est GFR (MDRD) Af Amer Est GFR (MDRD) Non-Af BUN/Creatinine Ratio Glucose Calcium POC Glucose 10/27/17 10/27/17 10/26/17 13:03 06:51 21:50 POC Glucose 81 96 151 H 10/26/17 17:01 POC Glucose 117 H Assessment/Plan Patient seen and examined independently. Agree with the above note by the physician central supply assistant. Data reviewed. 1. Acute heart failure with reduced ejection fraction Ejection fraction 25% on echocardiogram Left heart catheterization showed an occluded proximal LAD. Moderate to severe pulmonary hypertension and moderate mitral valve insufficiency Continue with Coreg, Lasix, lisinopril. 2. Pericardial effusion No clinical evidence of 10 benign Secondary to heart failure. Code Visit Inpatient E&M: 33623 Subs Hosp L2
--- NOTE | 2017-10-27 13:48 | PN_ITS ---
<Jerome Gunter - Last Filed: 10/27/17 13:43> Patient Problems: Active and Suspected Problems Congestive heart failure (Acute) Cardiomyopathy (Acute) Pericardial effusion (Acute) Valvular heart disease (Acute) Subjective: Pt with no further SOB laying flat, overall no SOB, swelling improved drastically. No CP. No cough. He underwent cath today with Dr. Murphy. - Physical Exam General: Alert, Oriented x3, Cooperative HEENT: Atraumatic, PERRLA, EOMI, Normocephalic Neck: Supple, No JVD, Negative Carotid Bruits Lungs: Clear to auscultation, Normal air movement Cardiovascular: Regular rate, No murmurs Abdomen: Bowel Sounds Present, Soft, Non Tender Extremities: No edema, Capillary Refill Less than 3 Seconds Skin: No rashes, No breakdown Musculoskeletal: No Tenderness to Palpation of Joints or Extremities Neurological: Cranial nerves II-XII grossly intact Psych/Mental Status: Normal Affect, Appropriate Vital Signs Temp Pulse Resp BP Pulse Ox 98.2 F 85 16 134/90 H 98 10/27/17 11:32 10/27/17 13:30 10/27/17 13:30 10/27/17 13:30 10/27/17 13:30 Oxygen Delivery Method Room Air Weight: 99.5 kg Body Mass Index (BMI) 34.3 Intake and Output for Last 24 Hours 10/25/17 10/26/17 10/27/17 23:59 23:59 23:59 Intake Total 1150 / 1150 1520 / 1520 300 / 300 Output Total 4900 / 4900 1750 / 1750 200 / 200 Balance -3750 / -3750 -230 / -230 100 / 100 Laboratory Tests Past 24 Hrs 10/26/17 10/26/17 10/27/17 05:42 05:42 05:18 WBC RBC Hgb Hct MCV MCH MCHC RDW RDW Differential Plt Count MPV Immature Gran % (Auto) Neut % (Auto) Lymph % (Auto) [place] % (Auto) Eos % (Auto) Baso % (Auto) Absolute Neuts (auto) Absolute Lymphs (auto) Total Counted PT INR APTT Specimen Type pH Bicarbonate Actual POC Total CO2 Base Excess O2 Saturation ABG pCO2 ABG pO2 VBG pH VBG pO2 VBG O2 Sat (Calc) VBG O2 Content VBG Base Excess POC Mix VBG pCO2 Pt Tmp Sodium 139 Potassium 4.1 Chloride 104 Carbon Dioxide 26.0 Anion Gap 9 BUN 23 H Creatinine 1.26 Estim Creat Clear Calc 73.59 Est GFR (MDRD) Af Amer 82 Est GFR (MDRD) Non-Af 68 BUN/Creatinine Ratio 18.3 Glucose 103 Calcium 8.7 Total Bilirubin 1.10 H Direct Bilirubin 0.28 AST 17 ALT 21 Alkaline Phosphatase 65 Total Protein 6.8 Albumin 3.6 Globulin 3.2 TSH 0.67 10/27/17 10/27/17 10/27/17 05:18 05:18 10:26 WBC 8.1 RBC 4.87 Hgb 12.3 L Hct 37.8 L MCV 77.6 L MCH 25.3 L MCHC 32.5 RDW 15.4 H RDW Differential 42.9 Plt Count 215 MPV 10.7 Immature Gran % (Auto) 0.100 Neut % (Auto) 77.4 H Lymph % (Auto) 12.5 L [place] % (Auto) 9.4 Eos % (Auto) 0.2 Baso % (Auto) 0.4 Absolute Neuts (auto) 6.2 Absolute Lymphs (auto) 1.01 Total Counted Not Reportable PT 16.4 H INR 1.4 APTT 37.3 H Specimen Type SAV pH Bicarbonate Actual POC Total CO2 Base Excess O2 Saturation ABG pCO2 ABG pO2 VBG pH 7.45 H VBG pO2 35 VBG O2 Sat (Calc) 70 VBG O2 Content 26 VBG Base Excess 1 POC Mix VBG pCO2 Pt Tmp 36.3 L Sodium Potassium Chloride Carbon Dioxide Anion Gap BUN Creatinine Estim Creat Clear Calc Est GFR (MDRD) Af Amer Est GFR (MDRD) Non-Af BUN/Creatinine Ratio Glucose Calcium Total Bilirubin Direct Bilirubin AST ALT Alkaline Phosphatase Total Protein Albumin Globulin TSH 10/27/17 10/27/17 10/27/17 10:30 10:33 10:36 WBC RBC Hgb Hct MCV MCH MCHC RDW RDW Differential Plt Count MPV Immature Gran % (Auto) Neut % (Auto) Lymph % (Auto) [place] % (Auto) Eos % (Auto) Baso % (Auto) Absolute Neuts (auto) Absolute Lymphs (auto) Total Counted PT INR APTT Specimen Type SAV SAV ART pH 7.42 Bicarbonate Actual 21.9 L POC Total CO2 23 Base Excess -3 L O2 Saturation 96 ABG pCO2 33.7 L ABG pO2 78 VBG pH 7.40 7.41 VBG pO2 31 31 VBG O2 Sat (Calc) 59 60 VBG O2 Content 25 25 VBG Base Excess -1 -1 POC Mix VBG pCO2 Pt Tmp 39.5 L 37.0 L Sodium Potassium Chloride Carbon Dioxide Anion Gap BUN Creatinine Estim Creat Clear Calc Est GFR (MDRD) Af Amer Est GFR (MDRD) Non-Af BUN/Creatinine Ratio Glucose Calcium Total Bilirubin Direct Bilirubin AST ALT Alkaline Phosphatase Total Protein Albumin Globulin TSH POC Glucose 10/27/17 10/27/17 10/26/17 13:03 06:51 21:50 POC Glucose 81 96 151 H 10/26/17 17:01 POC Glucose 117 H Assessment/Plan Active and Suspected Problems Congestive heart failure (Acute) Cardiomyopathy (Acute) Pericardial effusion (Acute) Valvular heart disease (Acute) 1. Acute systolic CHF exacerbation complicated by cardiomyopathy and mod/sev MVI , moderate TVI, and pulmonary HTN- Echo with EF 25%, severe global LV sys dys, 3 + MVI, 2+ TVI, RVSP 42mmHg, small to moderate pericardial effusion, no tamponade. Symptoms drastically improved. Diuresis is good. Cardio following. Lungs remain clear despite imaging with effusions. Pt on coreg, asa, TEQUILA inhibitor. Renal function and K normal. Symptoms have all improved. -Cath today. EF 20% Severe global LV systolic dysfunction, Right heart pressure mod to severely increased, moderate to severe pulmonary htn, moderate mitral valve insufficiency -Possible tertiary care center eval. 2. Indeterminate troponin - negative EKG. No CP. Flat troponin. 3. T2DM - Glycemic control is good. metformin held as has had contrast. Sliding scale coverage. Reported last A1C around 7. 4. HTN - improved. 5. Mild microcytic anemia - improved. iron studies demonstrate iron deficiency, PO iron. DVT ppx: lovenox, SCDs DC planning: possible tertiary transfer. This patient was seen by Jerome Gunter PA-C under the supervision of Doctor Byrne. <Demarcus Byrne - Last Filed: 10/27/17 14:31> - Physical Exam General: Alert, Cooperative HEENT: Atraumatic, Normocephalic Neck: Supple, No JVD, Negative Carotid Bruits Lungs: Clear to auscultation, Normal air movement Cardiovascular: Regular rate, Regular Rhythm, Normal S1, Normal S2, No murmurs Abdomen: Bowel Sounds Present, Soft, Non Tender, Non-Distended Extremities: No edema, No Calf Tenderness Skin: No rashes, No breakdown Psych/Mental Status: Normal Affect, Appropriate Vital Signs Temp Pulse Resp BP Pulse Ox 36.8 C 85 16 134/90 H 99 10/27/17 11:32 10/27/17 13:30 10/27/17 13:30 10/27/17 13:30 10/27/17 14:00 Oxygen Delivery Method Room Air Weight: 99.5 kg Body Mass Index (BMI) 34.3 Intake and Output for Last 24 Hours 10/25/17 10/26/17 10/27/17 23:59 23:59 23:59 Intake Total 1150 / 1150 1520 / 1520 300 / 300 Output Total 4900 / 4900 1750 / 1750 725 / 725 Balance -3750 / -3750 -230 / -230 -425 / -425 Laboratory Tests Past 24 Hrs 10/27/17 10/27/17 10/27/17 05:18 05:18 05:18 WBC 8.1 RBC 4.87 Hgb 12.3 L Hct 37.8 L MCV 77.6 L MCH 25.3 L MCHC 32.5 RDW 15.4 H RDW Differential 42.9 Plt Count 215 MPV 10.7 Immature Gran % (Auto) 0.100 Neut % (Auto) 77.4 H Lymph % (Auto) 12.5 L [place] % (Auto) 9.4 Eos % (Auto) 0.2 Baso % (Auto) 0.4 Absolute Neuts (auto) 6.2 Absolute Lymphs (auto) 1.01 Total Counted Not Reportable PT 16.4 H INR 1.4 APTT 37.3 H Specimen Type pH Bicarbonate Actual POC Total CO2 Base Excess O2 Saturation ABG pCO2 ABG pO2 VBG pH VBG pO2 VBG O2 Sat (Calc) VBG O2 Content VBG Base Excess POC Mix VBG pCO2 Pt Tmp Sodium 139 Potassium 4.1 Chloride 104 Carbon Dioxide 26.0 Anion Gap 9 BUN 23 H Creatinine 1.26 Estim Creat Clear Calc 73.59 Est GFR (MDRD) Af Amer 82 Est GFR (MDRD) Non-Af 68 BUN/Creatinine Ratio 18.3 Glucose 103 Calcium 8.7 10/27/17 10/27/17 10/27/17 10:26 10:30 10:33 WBC RBC Hgb Hct MCV MCH MCHC RDW RDW Differential Plt Count MPV Immature Gran % (Auto) Neut % (Auto) Lymph % (Auto) [place] % (Auto) Eos % (Auto) Baso % (Auto) Absolute Neuts (auto) Absolute Lymphs (auto) Total Counted PT INR APTT Specimen Type SAV SAV SAV pH Bicarbonate Actual POC Total CO2 Base Excess O2 Saturation ABG pCO2 ABG pO2 VBG pH 7.45 H 7.40 7.41 VBG pO2 35 31 31 VBG O2 Sat (Calc) 70 59 60 VBG O2 Content 26 25 25 VBG Base Excess 1 -1 -1 POC Mix VBG pCO2 Pt Tmp 36.3 L 39.5 L 37.0 L Sodium Potassium Chloride Carbon Dioxide Anion Gap BUN Creatinine Estim Creat Clear Calc Est GFR (MDRD) Af Amer Est GFR (MDRD) Non-Af BUN/Creatinine Ratio Glucose Calcium 10/27/17 10:36 WBC RBC Hgb Hct MCV MCH MCHC RDW RDW Differential Plt Count MPV Immature Gran % (Auto) Neut % (Auto) Lymph % (Auto) [place] % (Auto) Eos % (Auto) Baso % (Auto) Absolute Neuts (auto) Absolute Lymphs (auto) Total Counted PT INR APTT Specimen Type ART pH 7.42 Bicarbonate Actual 21.9 L POC Total CO2 23 Base Excess -3 L O2 Saturation 96 ABG pCO2 33.7 L ABG pO2 78 VBG pH VBG pO2 VBG O2 Sat (Calc) VBG O2 Content VBG Base Excess POC Mix VBG pCO2 Pt Tmp Sodium Potassium Chloride Carbon Dioxide Anion Gap BUN Creatinine Estim Creat Clear Calc Est GFR (MDRD) Af Amer Est GFR (MDRD) Non-Af BUN/Creatinine Ratio Glucose Calcium POC Glucose 10/27/17 10/27/17 10/26/17 13:03 06:51 21:50 POC Glucose 81 96 151 H 10/26/17 17:01 POC Glucose 117 H Assessment/Plan Patient seen and examined independently. Agree with the above note by the physician recreational assistant. Data reviewed. 1. Acute heart failure with reduced ejection fraction * Ejection fraction 25% on echocardiogram * Left heart catheterization showed an occluded proximal LAD. Moderate to severe pulmonary hypertension and moderate mitral valve insufficiency * Continue with Coreg, Lasix, lisinopril. 2. Pericardial effusion * No clinical evidence of 10 benign * Secondary to heart failure. Code Visit Inpatient E&M: [id number] Subs Hosp L2
--- NOTE | 2017-10-27 14:30 | NURSING ---
this nurse completed post cardiac assessment with practical nursing faculty
[2017-10-27 15:26] LABS: Bedside Glucose 172 mg/dL (70-110)
--- NOTE | 2017-10-27 15:43 | PCM.DC.SUM ---
<Jerome Gunter - Last Filed: 10/27/17 15:43> Discharge Date and Diagnosis - Problem List Patient Problems: Active and Suspected Problems Congestive heart failure (Acute) Cardiomyopathy (Acute) Pericardial effusion (Acute) Valvular heart disease (Acute) Date of Admission: 10/24/17 Date of Discharge: 10/27/17 - Primary Discharge Diagnosis Active and Suspected Problems Acute systolic CHF Cardiomyopathy - unspecified at this time Pericardial effusion Pulmonary HTN 3+MVI 2+TVI Indeterminate Troponin HTN Iron deficiency anemia T2DM - Secondary Discharge Diagnosis Chronic Problems Diabetes (Chronic) HTN (hypertension) (Chronic) Hospital Course and Treatment Imaging Results: RAD/Chest PA and Lateral IMPRESSION: Cardiomegaly. Clear lungs. CT/CTA Chest W/WO Contrast IMPRESSION: No evidence of pulmonary embolus. Moderate right pleural effusion and small left pleural effusion with overlying atelectasis. Moderate-sized pericardial effusion. Splenomegaly. Echo: Interpretation Summary Mildly dilated left ventricle. Severe global left ventricular systolic dysfunction. The estimated ejection fraction is 25 %. The left atrium is mildly enlarged. Borderline enlarged right atrium. Mild diffuse mitral valve thickening. Mild papillary muscle dysfunction of the mitral valve. Moderately severe (3+) eccentric mitral valve insufficiency. Moderate (2+) eccentric tricuspid valve insufficiency. Trivial pulmonic valve insufficiency. Small to moderate pericardial effusion. There are no echocardiographic indications of cardiac tamponade. Right ventricular systolic pressure estimated to be 42 mmHg. Transmitral diastolic flow velocities suggest diastolic dysfunction. Cath report: CONCLUSIONS Elevated Left Ventricular End Diastolic Pressure Right heart pressures - moderately to severely elevated The patient has pulmonary hypertension which is moderate to severe. Intracardiac shunting: None Global LV systolic dysfunction- Severe LVEF: by LV gram 20 % Mitral Valve Insufficiency Moderate [place] - Cardiology Operations: None Procedures: 2-D Echocardiogram, Cardiac catheterization Summary of Care Provided: Physical exam on day of discharge: See daily progress note Hospital course: The patient is a 37 year old M with a history of diabetes type who presented to the ER with SOB, orthopnea, PND, and BLE edema. He was tachycardic, hypertensive, and had an indeterminate troponin with significantly elevated BNP. CXR showed cardiomegaly and a CTA of the chest showed pleural and pericardial effusions. He had no prior dx of heart failure. He was admitted on placed on IV diuresis and cardiology was consulted. He was already on an tequila inhibitor, coreg was started. He responded very well to lasix therapy. He underwent a 2d echo which demonstrated reduced ejection fraction, cardiomyopathy, valvular heart disease, and pulmonary htn. He then unerwent a heart catheterization which demonstrated reduced EF at 20%, global hypokinesis, moderate to severe pulmonary htn, moderate to severe elevated Right heart pressures, elevated LV end diastolic pressure, and moderate mitral valve insufficiency. Due to these findings, and his pericardial effusion, he was felt to need transfer to a tertiary care center for evaluation. He remained clinically stable on coreg, lisinopril, and lasix. He did not require oxygen and his edema, orthopnea and PND improved dramatically. Cardiology made the arrangements, and he was transferred to tertiary care in stable condition. This patient was seen by Jerome Gunter PA-C under the supervision of Doctor Chavez. [] Discharge Diet: Low fat/ Low Cholesterol, 1800 Calorie Control Diet, 2000 mg Sodium Diet Discharge Activity: Return to Normal Activity Home Medications: Medications to take at Discharge Glimepiride [Amaryl] 4 mg PO DAILY 10/24/17 Lisinopril [Zestril] 10 mg PO DAILY 10/24/17 Metformin HCl [Glucophage] 1,000 mg PO BIDCM 10/24/17 Primary Care Physician: Augusto Mcneil MD [Primary Care Provider] - Please follow up with your Primary Care Physician in: 2 weeks Please Follow Up With: Augusto Murphy MD When: 2 weeks Disposition: Acute care Hospital Minutes spent on discharge:: 35 Patient Condition:: Stable Meaningful Use Info Meaningful Use Diagnoses (Choose all that apply): CHF - CHF TEQUILA/ARB ordered at discharge?: Yes Documented LVEF (%): 20 <Demarcus Byrne - Last Filed: 10/27/17 16:04> Discharge Date and Diagnosis - Primary Discharge Diagnosis Active and Suspected Problems Congestive heart failure (Acute) Cardiomyopathy (Acute) Pericardial effusion (Acute) Valvular heart disease (Acute) - Secondary Discharge Diagnosis Chronic Problems Diabetes (Chronic) HTN (hypertension) (Chronic) Hospital Course and Treatment Operations: None Procedures: 2-D Echocardiogram, Cardiac catheterization - Elevated Left Ventricular End Diastolic Pressure Right heart pressures - moderately to severely elevated The patient has pulmonary hypertension which is moderate to severe. Intracardiac shunting: None Global LV systolic dysfunction- Severe LVEF: by LV gram 20 % Mitral Valve Insufficiency Moderate Occluded prox LAD Summary of Care Provided: Patient seen and examined in family. Agree the above note by the physician podiatrist assistant. Is a 37-year-old white male presents with shortness of breath and pericardial effusion. Patient was found to be CHF. Echocardiogram showed an ejection fraction of 25%. Given the etiology of the patient's heart failure was unknown as such a young age patient did undergo a left heart catheterization today that showed moderate severe pulmonary artery hypertension, occluded proximal left anterior descending artery. As recommended, by cardiology, the patient go to a tertiary facility. Dr. Murphy spoke with [facility] and the patient was accepted under the service of a Dr. Rubio.[] Discharge Diet: Low fat/ Low Cholesterol, 1800 Calorie Control Diet, 2000 mg Sodium Diet Discharge Activity: Return to Normal Activity Disposition: Acute care Hospital Minutes spent on discharge:: 35 Patient Condition:: Stable Meaningful Use Info Meaningful Use Diagnoses (Choose all that apply): CHF - CHF TEQUILA/ARB ordered at discharge?: Yes Documented LVEF (%): 20 Code Visit Inpatient E&M: 43775 Disch Hosp
--- NOTE | 2017-10-27 15:56 | DS.PCM_ITS ---
<Jerome Gunter - Last Filed: 10/27/17 15:43> Discharge Date and Diagnosis - Problem List Patient Problems: Active and Suspected Problems Congestive heart failure (Acute) Cardiomyopathy (Acute) Pericardial effusion (Acute) Valvular heart disease (Acute) Date of Admission: 10/24/17 Date of Discharge: 10/27/17 - Primary Discharge Diagnosis Active and Suspected Problems Acute systolic CHF Cardiomyopathy - unspecified at this time Pericardial effusion Pulmonary HTN 3+MVI 2+TVI Indeterminate Troponin HTN Iron deficiency anemia T2DM - Secondary Discharge Diagnosis Chronic Problems Diabetes (Chronic) HTN (hypertension) (Chronic) Hospital Course and Treatment Imaging Results: RAD/Chest PA and Lateral IMPRESSION: Cardiomegaly. Clear lungs. CT/CTA Chest W/WO Contrast IMPRESSION: No evidence of pulmonary embolus. Moderate right pleural effusion and small left pleural effusion with overlying atelectasis. Moderate-sized pericardial effusion. Splenomegaly. Echo: Interpretation Summary Mildly dilated left ventricle. Severe global left ventricular systolic dysfunction. The estimated ejection fraction is 25 %. The left atrium is mildly enlarged. Borderline enlarged right atrium. Mild diffuse mitral valve thickening. Mild papillary muscle dysfunction of the mitral valve. Moderately severe (3+) eccentric mitral valve insufficiency. Moderate (2+) eccentric tricuspid valve insufficiency. Trivial pulmonic valve insufficiency. Small to moderate pericardial effusion. There are no echocardiographic indications of cardiac tamponade. Right ventricular systolic pressure estimated to be 42 mmHg. Transmitral diastolic flow velocities suggest diastolic dysfunction. Cath report: CONCLUSIONS Elevated Left Ventricular End Diastolic Pressure Right heart pressures - moderately to severely elevated The patient has pulmonary hypertension which is moderate to severe. Intracardiac shunting: None Global LV systolic dysfunction- Severe LVEF: by LV gram 20 % Mitral Valve Insufficiency Moderate [place] - Cardiology Operations: None Procedures: 2-D Echocardiogram, Cardiac catheterization Summary of Care Provided: Physical exam on day of discharge: See daily progress note Hospital course: The patient is a 37 year old M with a history of diabetes type who presented to the ER with SOB, orthopnea, PND, and BLE edema. He was tachycardic, hypertensive , and had an indeterminate troponin with significantly elevated BNP. CXR showed cardiomegaly and a CTA of the chest showed pleural and pericardial effusions. He had no prior dx of heart failure. He was admitted on placed on IV diuresis and cardiology was consulted. He was already on an tequila inhibitor, coreg was started. He responded very well to lasix therapy. He underwent a 2d echo which demonstrated reduced ejection fraction, cardiomyopathy, valvular heart disease, and pulmonary htn. He then unerwent a heart catheterization which demonstrated reduced EF at 20%, global hypokinesis, moderate to severe pulmonary htn, moderate to severe elevated Right heart pressures, elevated LV end diastolic pressure, and moderate mitral valve insufficiency. Due to these findings, and his pericardial effusion, he was felt to need transfer to a tertiary care center for evaluation. He remained clinically stable on coreg, lisinopril, and lasix. He did not require oxygen and his edema, orthopnea and PND improved dramatically. Cardiology made the arrangements, and he was transferred to tertiary care in stable condition. This patient was seen by Jerome Gunter PA-C under the supervision of Doctor Chavez. [] Discharge Diet: Low fat/ Low Cholesterol, 1800 Calorie Control Diet, 2000 mg Sodium Diet Discharge Activity: Return to Normal Activity Home Medications: Medications to take at Discharge Glimepiride [Amaryl] 4 mg PO DAILY 10/24/17 Lisinopril [Zestril] 10 mg PO DAILY 10/24/17 Metformin HCl [Glucophage] 1,000 mg PO BIDCM 10/24/17 Primary Care Physician: Augusto Mcneil MD [Primary Care Provider] - Please follow up with your Primary Care Physician in: 2 weeks Please Follow Up With: Augusto Murphy MD When: 2 weeks Disposition: Acute care Hospital Minutes spent on discharge:: 35 Patient Condition:: Stable Meaningful Use Info Meaningful Use Diagnoses (Choose all that apply): CHF - CHF TEQUILA/ARB ordered at discharge?: Yes Documented LVEF (%): 20 <Demarcus Byrne - Last Filed: 10/27/17 16:04> Discharge Date and Diagnosis - Primary Discharge Diagnosis Active and Suspected Problems Congestive heart failure (Acute) Cardiomyopathy (Acute) Pericardial effusion (Acute) Valvular heart disease (Acute) - Secondary Discharge Diagnosis Chronic Problems Diabetes (Chronic) HTN (hypertension) (Chronic) Hospital Course and Treatment Operations: None Procedures: 2-D Echocardiogram, Cardiac catheterization - Elevated Left Ventricular End Diastolic Pressure Right heart pressures - moderately to severely elevated The patient has pulmonary hypertension which is moderate to severe. Intracardiac shunting: None Global LV systolic dysfunction- Severe LVEF : by LV gram 20 % Mitral Valve Insufficiency Moderate Occluded prox LAD Summary of Care Provided: Patient seen and examined in family. Agree the above note by the physician assistant sales center manager. Is a 37-year-old white male presents with shortness of breath and pericardial effusion. Patient was found to be CHF. Echocardiogram showed an ejection fraction of 25%. Given the etiology of the patient's heart failure was unknown as such a young age patient did undergo a left heart catheterization today that showed moderate severe pulmonary artery hypertension, occluded proximal left anterior descending artery. As recommended, by cardiology, the patient go to a tertiary facility. Dr. Murphy spoke with [facility] and the patient was accepted under the service of a Dr. Rubio.[] Discharge Diet: Low fat/ Low Cholesterol, 1800 Calorie Control Diet, 2000 mg Sodium Diet Discharge Activity: Return to Normal Activity Disposition: Acute care Hospital Minutes spent on discharge:: 35 Patient Condition:: Stable Meaningful Use Info Meaningful Use Diagnoses (Choose all that apply): CHF - CHF TEQUILA/ARB ordered at discharge?: Yes Documented LVEF (%): 20 Code Visit Inpatient E&M: 17034 Disch Hosp
--- NOTE | 2017-10-27 16:01 | NURSING ---
verbal report given to Nik tompkins at [facility]
[2017-10-27] MEDS: Acetaminophen 325 MG Tablet 650 MG PO (16:20)
== END 2017-10-27 16:53 | disposition short-term general hospital (02) | DRG 124 ==
LOC: ED 16:56 → PCU 16:58
PROVIDERS: Internal Medicine Cardiovascular Disease; Physician Assistant; Admitting Provider Internal Medicine; Emergency Provider Emergency Medicine; Family Provider Family Medicine; PCP Family Medicine
DX: I11.0 Hypertensive heart disease with heart failure (principal); I30.9 Acute pericarditis, unspecified; I27.20 Pulmonary hypertension, unspecified; I42.9 Cardiomyopathy, unspecified; I36.1 Nonrheumatic tricuspid (valve) insufficiency; E11.9 Type 2 diabetes mellitus without complications; D50.9 Iron deficiency anemia, unspecified; I34.0 Nonrheumatic mitral (valve) insufficiency; R00.0 Tachycardia, unspecified; Z79.84 Long term (current) use of oral hypoglycemic drugs; I50.21 Acute systolic (congestive) heart failure; Z79.899 Other long term (current) drug therapy
CPT/HCPCS: 36415; 71046; 71275; 80048; 80061; 80076; 81001; 82040; 82728; 82803; 82962; 83540; 83550; 83880; 84156; 84443; 84484; 85025; 85379; 85610; 85730; 93005; 93306; 93460; 97802; 99152; 99153; 99284; J7030; Q9967; A4216; C1751; C1769; C1894; J1940

== ENCOUNTER → 2017-11-13 13:01 | Outpatient (CLI) | payer MEDICAID, SELFPAY ==
--- NOTE | 2017-11-13 13:07 | PCM.CR.HP2 ---
CR - History & Physical - General Arrival date:: 11/13/17 Arrival time:: 13:07 Date of Admission: 11/13/17 Referring Physician: Dr. Augusto Murphy Primary Diagnosis: Cardiomyopathy w/acute on chronic systolic congestive HF - History of Present Cardiac Event Onset Date: Enter Onset Date of cardiac illnesses in Comment field below Type of Symptoms:: Severe shortness of breath, found to be result of CHF. Pericardial effusion, MR/TR, hypertension and DM type II Interventions with present event:: LHC at [facility] and echocardiogram and transfer to [facility] Clinic at [facility] Were there any complications?: none outside of the health problems being managed - Medications Home Medications: Ambulatory Orders Medication Instructions Recorded Glimepiride [Amaryl] 4 mg PO DAILY 10/24/17 Metformin HCl [Glucophage] 1,000 mg PO BIDCM 10/24/17 aspirin 81 mg tablet,delayed 81 mg PO QDAY tab 11/04/17 release atorvastatin 40 mg tablet 40 mg PO QDAY 11/04/17 carvedilol 25 mg tablet 25 mg PO BID 11/04/17 furosemide 20 mg tablet 20 mg PO BID tab 11/04/17 lisinopril 20 mg tablet 20 mg PO QDAY 11/04/17 multivitamin tablet 1 tab PO QDAY 11/04/17 spironolactone 25 mg tablet 25 mg PO QDAY 11/04/17 ascorbic acid (vitamin C) 500 mg 500 mg PO ea 11/05/17 capsule - Allergies Allergies/Adverse Reactions: Allergies No Known Allergies Allergy (Verified 11/05/17 13:21) - Sleep Disorder Evaluation Hx of Sleep Apnea: No Do you snore loudly (louder than talking or can be heard through closed doors)?: No Do you often feel tired/ fatigued/ sleepy during daytime?: No Has anyone observed you stop breathing during sleep?: No History of Hypertension (for STOP score): No STOP Results: Negative Advanced Directives - Advanced Directives Power of Health Information Technologist: No Living Will: Yes - completed at [facility] Advance Directives Information Provided: No Advance Directives on File: No DNR Order?:: No Past Medical History - Problems and Co-Morbidities Problems & Co-Morbidities: Diabetes, Hypertension - Past Medical Illness Past Medical Illness: Diabetes - Type II Diabetic Other Medical Illnesses:: pulmonary hypertension, cardiomyopathy, pericardial effusion, valvular heart disease, acute systolic congestive heart failure. - Past Cardiac Illness Past Cardiac Illness: Valve Disorders - nonrheumatic tricuspid regurgitation, nonrheumatic mitral valve regurgitation, , LV Dysfunction, CHF - acute on systolic congestive heart failure, - Other Other: Vision/Eye Problems - Cardiology Procedures/Interventions Cardiology Procedures/Interventions: Angioplasty, Heart Catheterization, Echocardiogram, Transesophageal Echo - Past Surgical History Surgical History: - - tube placements in ears as child, tonque clipped as - Family History Summary Family History: Diabetes: Maternal - pre diabetic, grandfather DM, Heart Disease: Paternal - same issue 15 years ago, PM/ICD implant. His mother same issue, Cancer: Maternal - cancer of liver Additional Family History: DM on both sides of family in grandparents. Review of Systems - Review of Systems Hints: Right click = Denies (Slash). Left click = Reports (Haines) Review of Present Symptoms: Reports: Shortness of Breath at Rest, Shortness of Breath with Exertion - still having some issues but has improved. Trying to walk as much as possible with in reason to stay active., Fatigue - occasional feels tired., Appetite - Normal - better than it was before hospitalization. Still not eating as should be., Appetite - Special Diet - diabetic diet and no sodium., Sleep - Normal. Denies: Angina, Dizziness/Lightheadedness, Sexual Changes Risk Factor Assessment - Chief Complaint Chief Complaint: Depending on tarun's clinical course and subsequent findings, if his LV wall motion systolic fiunction does not significantly improve, he will require further EP evaluation for primary prevention ICD therapy. If it does improve and he does not require this therapy then at that time he is hoping to discontinue use of his life vest device. - Pulse Pulse Rate: 77 Pulse Rhythm: Regular - Hypertension How long have you been treated?: been borderline for some time about 7 years ago. First diagnosed with DM. Blood Pressure Sitting - Left Arm: 102/60 - Stress Stress: Recent - health issues recently dealing with, lack of ability to be employed - Diabetes Diabetic History: Type II Nutrition Referral for Diabetes: Yes - Obesity Height: 5 ft 7 in Weight:: 194 lb Weight in Pounds: 194.0 lbs Body Mass Index (BMI): 30.4 Nutritional Referral for Obesity: Yes - especially due to underlying medical history and DM Type II. - Physical Inactivity Physical Inactivity: Reg Exercise 30 min/day - walking - Risk Stratification Risk Guidelines: Lowest Risk: Risk Factor for Smoking, Risk Factor for Dyslipidemia, Risk Factor for Hypertension, Risk Factor for Sedentary Lifestyle, Risk Factor for Depression, Moderate Risk: Risk Factor for Diabetes, Highest Risk: Risk Factor for Obesity - For Smoking Smoking Risk Guidelines: Smoking Low Risk: None or quit greater than 6 months ago. Smoking Moderate Risk: Smoker or quit 6 months or less ago. Smoking High Risk: Smoker - For Dyslipidemia Dyslipidemia Risk Guidelines: Low Risk: Moderate Risk: High Risk: 15-25% fat 25.1-29% fat >/= 30% fat. <7% sat fat 7-9% sat fat >9% sat fat. <150 mg chol 150-299 mg chol >/= 300 mg chol. LDL <100 LDL 100-129 LDL >/= 130. Chol/HDL ratio <5.0 Chol/HDL ratio 5.0-6.0 Chol/HDL ratio >6.0. Triglycerides <100 Triglycerides 100-149 Triglycerides >/= 150 - For Diabetes Mellitus Diabetes Risk Guidelines: Diabetes Low Risk: HgA1c <6.5% and/or FBG <120. Diabetes Moderate Risk: HgA1c 6.6-7.9% and/or FBG 120-180. Diabetes High Risk: HgA1c >/= 8% and/or FBG >180 - For Obesity/Overweight Obesity/Overweight Risk Guidelines: Obesity Low Risk: BMI <25.0. Obesity Moderate Risk: BMI 25-29.9. Obesity High Risk: BMI >/= 30.0 - For Hypertension Hypertension Risk Guidelines: Hypertension Low Risk: Systolic <120 and Diastolic <80. Hypertension Moderate Risk: Systolic 120-139 and Diastolic 80-89. Hypertension High Risk: Systolic >/= 140 and Diastolic >/= 90 - For Sedentary Lifestyle Sedentary Lifestyle Risk Guidelines: Sedentary Lifestyle Low Risk: >/= 1,500 kcal/week. Sedentary Lifestyle Moderate Risk: 700-1,499 kcal/week. Sedentary Lifestyle High Risk: < 700 kcal/week - For Depression Depression Risk Guidelines: Depression Low Risk: Not clinically depressed. Depression Moderate Risk: Mildly depressed. Depression High Risk: Clinically depressed - Family History Family History: Family History (Last Reviewed 11/05/17 @ 13:24 by Leticia Perrin) Father Heart disease Grandmother Heart disease Social History - Smoking History Smoking Status: Never smoker Hx Tobacco Use: No Hx Smoking Exposure: No - Alcohol Use Alcohol Usage: Yes - very little if it is even one a month - Substance Abuse Hx Substance Use: No - Occupation Occupation (List type of work in comments):: Unemployed - 10 week job at [employer] in [place]. unable to be working at his current health stage. - Hobbies, Recreation, Social Activities Hobbies: Other - electronics, helicopter/drone devices, computer games, working with computers (IT) Recreational Activities: I am able to engage in most, but not all activities Marital Status - Status Marital Status: - Current Living Arrangements Living Environment:: Alone - Children How many children do you have?: 0 Do any of your children live nearby?: No - Safety Do you feel safe in your surroundings?: Yes - Assistance Do you need any assistance at home?: none
--- NOTE | 2017-11-13 13:20 | CR.HP_ITS ---
CR - History & Physical - General Arrival date:: 11/13/17 Arrival time:: 13:07 Date of Admission: 11/13/17 Referring Physician: Dr. Augusto Murphy Primary Diagnosis: Cardiomyopathy w/acute on chronic systolic congestive HF - History of Present Cardiac Event Onset Date: Enter Onset Date of cardiac illnesses in Comment field below Type of Symptoms:: Severe shortness of breath, found to be result of CHF. Pericardial effusion, MR/TR, hypertension and DM type II Interventions with present event:: LHC at [facility] and echocardiogram and transfer to HF Clinic at [facility] Were there any complications?: none outside of the health problems being managed - Medications Home Medications: Ambulatory Orders Medication Instructions Recorded Glimepiride [Amaryl] 4 mg PO DAILY 10/24/17 Metformin HCl [Glucophage] 1,000 mg PO BIDCM 10/24/17 aspirin 81 mg tablet,delayed 81 mg PO QDAY tab 11/04/17 release atorvastatin 40 mg tablet 40 mg PO QDAY 11/04/17 carvedilol 25 mg tablet 25 mg PO BID 11/04/17 furosemide 20 mg tablet 20 mg PO BID tab 11/04/17 lisinopril 20 mg tablet 20 mg PO QDAY 11/04/17 multivitamin tablet 1 tab PO QDAY 11/04/17 spironolactone 25 mg tablet 25 mg PO QDAY 11/04/17 ascorbic acid (vitamin C) 500 mg 500 mg PO ea 11/05/17 capsule - Allergies Allergies/Adverse Reactions: Allergies No Known Allergies Allergy (Verified 11/05/17 13:21) - Sleep Disorder Evaluation Hx of Sleep Apnea: No Do you snore loudly (louder than talking or can be heard through closed doors)? : No Do you often feel tired/ fatigued/ sleepy during daytime?: No Has anyone observed you stop breathing during sleep?: No History of Hypertension (for STOP score): No STOP Results: Negative Advanced Directives - Advanced Directives Power of Tobacco Sizer: No Living Will: Yes - completed at [facility] Advance Directives Information Provided: No Advance Directives on File: No DNR Order?:: No Past Medical History - Problems and Co-Morbidities Problems & Co-Morbidities: Diabetes, Hypertension - Past Medical Illness Past Medical Illness: Diabetes - Type II Diabetic Other Medical Illnesses:: pulmonary hypertension, cardiomyopathy, pericardial effusion, valvular heart disease, acute systolic congestive heart failure. - Past Cardiac Illness Past Cardiac Illness: Valve Disorders - nonrheumatic tricuspid regurgitation, nonrheumatic mitral valve regurgitation, , LV Dysfunction, CHF - acute on systolic congestive heart failure, - Other Other: Vision/Eye Problems - Cardiology Procedures/Interventions Cardiology Procedures/Interventions: Angioplasty, Heart Catheterization, Echocardiogram, Transesophageal Echo - Past Surgical History Surgical History: - - tube placements in ears as child, tonque clipped as infant - Family History Summary Family History: Diabetes: Maternal - pre diabetic, grandfather DM, Heart Disease : Paternal - same issue 15 years ago, PM/ICD implant. His mother same issue, Cancer: Maternal - cancer of liver Additional Family History: DM on both sides of family in grandparents. Review of Systems - Review of Systems Hints: Right click = Denies (Slash). Left click = Reports ([place]) Review of Present Symptoms: Reports: Shortness of Breath at Rest, Shortness of Breath with Exertion - still having some issues but has improved. Trying to walk as much as possible with in reason to stay active., Fatigue - occasional feels tired., Appetite - Normal - better than it was before hospitalization. Still not eating as should be., Appetite - Special Diet - diabetic diet and no sodium., Sleep - Normal. Denies: Angina, Dizziness/Lightheadedness, Sexual Changes Risk Factor Assessment - Chief Complaint Chief Complaint: Depending on tarun's clinical course and subsequent findings , if his LV wall motion systolic fiunction does not significantly improve, he will require further EP evaluation for primary prevention ICD therapy. If it does improve and he does not require this therapy then at that time he is hoping to discontinue use of his life vest device. - Pulse Pulse Rate: 77 Pulse Rhythm: Regular - Hypertension How long have you been treated?: been borderline for some time about 7 years ago. First diagnosed with DM. Blood Pressure Sitting - Left Arm: 102/60 - Stress Stress: Recent - health issues recently dealing with, lack of ability to be employed - Diabetes Diabetic History: Type II Nutrition Referral for Diabetes: Yes - Obesity Height: 5 ft 7 in Weight:: 194 lb Weight in Pounds: 194.0 lbs Body Mass Index (BMI): 30.4 Nutritional Referral for Obesity: Yes - especially due to underlying medical history and DM Type II. - Physical Inactivity Physical Inactivity: Reg Exercise 30 min/day - walking - Risk Stratification Risk Guidelines: Lowest Risk: Risk Factor for Smoking, Risk Factor for Dyslipidemia, Risk Factor for Hypertension, Risk Factor for Sedentary Lifestyle , Risk Factor for Depression, Moderate Risk: Risk Factor for Diabetes, Highest Risk: Risk Factor for Obesity - For Smoking Smoking Risk Guidelines: Smoking Low Risk: None or quit greater than 6 months ago. Smoking Moderate Risk: Smoker or quit 6 months or less ago. Smoking High Risk: Smoker - For Dyslipidemia Dyslipidemia Risk Guidelines: Low Risk: Moderate Risk: High Risk: 15-25% fat 25.1-29% fat >/= 30% fat. <7% sat fat 7-9% sat fat >9% sat fat. <150 mg chol 150-299 mg chol >/= 300 mg chol. LDL <100 LDL 100-129 LDL >/= 130. Chol/HDL ratio <5.0 Chol/HDL ratio 5.0-6.0 Chol/HDL ratio >6.0. Triglycerides <100 Triglycerides 100-149 Triglycerides >/= 150 - For Diabetes Mellitus Diabetes Risk Guidelines: Diabetes Low Risk: HgA1c <6.5% and/or FBG <120. Diabetes Moderate Risk: HgA1c 6.6-7.9% and/or FBG 120-180. Diabetes High Risk: HgA1c >/= 8% and/or FBG >180 - For Obesity/Overweight Obesity/Overweight Risk Guidelines: Obesity Low Risk: BMI <25.0. Obesity Moderate Risk: BMI 25-29.9. Obesity High Risk: BMI >/= 30.0 - For Hypertension Hypertension Risk Guidelines: Hypertension Low Risk: Systolic <120 and Diastolic <80. Hypertension Moderate Risk: Systolic 120-139 and Diastolic 80-89. Hypertension High Risk: Systolic >/= 140 and Diastolic >/= 90 - For Sedentary Lifestyle Sedentary Lifestyle Risk Guidelines: Sedentary Lifestyle Low Risk: >/= 1 ,500 kcal/week. Sedentary Lifestyle Moderate Risk: 700-1,499 kcal/week. Sedentary Lifestyle High Risk: < 700 kcal/week - For Depression Depression Risk Guidelines: Depression Low Risk: Not clinically depressed. Depression Moderate Risk: Mildly depressed. Depression High Risk: Clinically depressed - Family History Family History: Family History (Last Reviewed 11/05/17 @ 13:24 by Leticia Perrin) Father Heart disease Grandmother Heart disease Social History - Smoking History Smoking Status: Never smoker Hx Tobacco Use: No Hx Smoking Exposure: No - Alcohol Use Alcohol Usage: Yes - very little if it is even one a month - Substance Abuse Hx Substance Use: No - Occupation Occupation (List type of work in comments):: Unemployed - 10 week job at [employer] in [place]. unable to be working at his current health stage. - Hobbies, Recreation, Social Activities Hobbies: Other - electronics, helicopter/drone devices, computer games, working with computers (IT) Recreational Activities: I am able to engage in most, but not all activities Marital Status - Status Marital Status: - Current Living Arrangements Living Environment:: Alone - Children How many children do you have?: 0 Do any of your children live nearby?: No - Safety Do you feel safe in your surroundings?: Yes - Assistance Do you need any assistance at home?: none
[2017-11-13 13:38] VITALS: BP 102/60; PULSE 77; BMI 30.4
[2017-11-13 13:49] VITALS: BP 102/68
--- NOTE | 2017-11-13 13:50 | CR.ITP_ITS ---
Exercise - Initial Assessment - Visit Date of Eval: 11/13/17 - Stages of Change Stages of Change:: Action - Exercise Prescription Mode:: Treadmill, Airdyne, NuStep Angina with exercise?: No Target Heart Rate:: Rest HR + 10 BPM - Hypertension Resting Blood Pressure:: 102/68 - Intervention Home Exercise/Activity Goal:: Moderate Exercise 30 min/day x 5 days/wk - Education Goals:: Warm-up, RPE DESMOND Scale, S/S, Safe Exercise, Self-Monitoring - Exercise Program Goals Exercise Program Goals: Aerobic Activity >30 min Nutrition - Initial Assessment - Program Goals Nutrition Program Goals: LDL <70. Total Cholesterol <200. HDL >45. Triglycerides <150. HgbA1C <7%. BMI <25 - Visit Date of Assessment:: 11/13/17 - Diabetes Diabetes:: Yes Insulin: No Non-Insulin Dependent?: Yes - Metformin 1000mg BID, glimepiride 4mg Do you monitor your blood sugar at home?: No - issues with insurance at present time - Weight Management Height: 5 ft 7 in Weight:: 194 lb - Intervention Referral to dietitian:: Yes Referral to Diabetic Clinic:: Yes Will attend diet classes:: Yes - Education Gave educational materials for:: Signs & symptoms of hypoglycemia, Signs & symptoms of hyperglycemia, Relate diabetes to coronary artery disease, Healthy eating Tobacco - Initial Assessment - Program Goals Tobacco Program Goals: Complete smoking cessation. Attend education classes. Improve Knowledge Test score - Stage of Change Stages of Change:: Action - Learning Barriers Learning Barriers: Vision - Family Support Do you have family support?: Yes - Tobacco Use Tobacco Use: Non-smoker Do you use smokeless tobacco?: No - Intervention Smoking Cessation Referral:: No Individual Education/Counseling:: No Education Schedule Given:: Yes - Education Gave educational material for:: Coronary artery disease, Risk factors, Sexuality , Medical compliance, Cardiac A&P, Angina signs & symptoms Psychosocial - Initial Assess - Target Goals Target Goals: Assess presence or absence of depression. Using a valid screening tool, maximizes coping skills. Positive support system - Stages of Change Stages of Change:: Action - Psychosocial Test Tool Used:: HANDS Depression Questionnaire - Intervention PS - Interventions: Yes Attend Stress Management Classes, No Referral to Mental Health, No Referral to [facility] Case Management, No Referral to Physician, No Uses Stress Management Skills - Education Gave educational materials for:: Coping techniques, Signs & symptoms of depression, Stress management, Relaxation techniques - Patient/Program Goal Preventative Medication(s):: Aspirin, TEQUILA inhibitor, Clopidogrel, Beta cassia, Statin/lipid - Assistive Devices Assistive Devices:: None Fall Risk Assessed:: Yes Patient Health Questionnaire Initial Assessment 1. Little interest or pleasure in doing things: Several days 2. Feeling down, depressed, or hopeless: Not at all 3. Trouble falling or staying asleep, or sleeping too much: Not at all 4. Feeling tired or having little energy: Several days 5. Poor appetite or overeating: Several days 6. Feeling bad about yourself -- or that you are a failure or have let yourself or your family down: Not at all 7. Trouble concentrating on things, such as reading the newspaper or watching television: Not at all 8. Moving or speaking so slowly that other people could have noticed. Or the opposite - being so fidgety or restless that you have been moving around a lot more than usual: Not at all 9. Thoughts that you would be better off , or of hurting yourself in some way: Not at all How difficult have these problems made it for you to do your work, take care of things at home, or get along with other people?: Not difficult at all Total Score: 3 Knowledge Test - Check your knowledge Initial The #1 cause of in the [place] each year is:: Heart disease Which of the following is a common treatment for heart disease?: Medications The arteries that feed the heart are called:: Femoral arteries HDL cholesterol is known as the good cholesterol.: False What disease increases your risk for heart disease?: Diabetes What food product raises blood cholesterol level the most?: Saturated fat The bad cholesterol in the blood is called:: HDL Hypertension is another word for:: High blood pressure A blood pressure reading of 148/88 is considered normal.: True Exercise will only benefit your health when your heart rate reaches a target level.: True Total Score:: 4 Self-Efficacy Initial Assessment We would like to know how confident you are in doing certain activities. Please select your confidence level for:: Select your confidence level for the following using the scale 1-10 where 1 is not at all confident and 10 is totally confident. Your score is the average of all 6 responses. Fatigue: How confident are you that you can keep the fatigue caused by your disease from interfering with the things you want to do? Select Number: 5 Physical Discomfort or Pain: How confident are you that you can keep the physical discomfort or pain of your disease from interfering with the things you want to do? Select Number: 10 Emotional Distress: How confident are you that you can keep the emotional distress caused by your disease from interfering with the things you want to do? Select Number: 10 Other Symptoms or Health Problems: How confident are you that you can keep other symptoms or health problems from interfering with the things you want to do? Select Number: 10 Different Tasks and Activities: How confident are you that you can do the different tasks and activities needed to manage your health condition so as to reduce your need to see a doctor? Select Number: 7 Medication: How confident are you that you can do things other than just taking medication to reduce how much your illness affects your everyday life? Select Number: 7 Total Score:: 8 Nutrition Survey - Nutrition Survey Instructions Scoring Instructions: Scoring is as follows: Yes = 1 points. No = 0 point. Patient score that is >/=12 is considered to be at potential nutritional risk and could benefit from a referral to a registered dietitian. - Nutrition Survey Initial Have you lost >10 lbs over the past 2 months without trying?: No Are you following a special diet at home for diabetes, low fat, or low salt?: Yes Are you interested in meeting with a dietitian for help understanding your diet? : No Do you eat less than 3 meals a day?: No Do you eat fatty meats (chan, sausage, ribs, etc), fried foods, desserts, large amounts of salad dressings, margarine, butter, or cheese most days?: No Do you have food allergies? [Enter types in comment field]: No Do you eat in restaurants more than 3 times a week?: Yes Do you season food with salt, seasoning salt, or garlic salt?: No Do you used canned, boxed, frozen meals, or soups, seasoning packets?: No Total Score:: 2 Cardiac Rehabilitation Goals - Cardiac Rehab Goals Cardiac Rehabilitation Goals: 1. Maintain the individual as the primary focus of care. 2. To improve the patient's quality of life. 3. Identification of cardiac risk factors and provide cardiac risk factor management. 4. Enhance the psychosocial status of the patient. 5. Reconditioning enough to allow the patient to resume customary activities. 6. Control symptoms of cardiac disease - Scale Scale for measuring improvement of personal goals: Enter appropriate number in Comments. 2 = Unchanged. 3 = Slightly Better. 4 = Moderate Improvement. 5 = Met my Goal Initial Assessment Personal Goals: 30-day Re-assessment: Improve energy level, Improve knowledge of cardiac disease, Improve muscle strength and endurance, Control risk factors (learn risk factor modification)
== END ==
PROVIDERS: Family Provider Internal Medicine; PCP Internal Medicine; Visit Provider Internal Medicine Cardiovascular Disease
DX: I50.23 Acute on chronic systolic (congestive) heart failure (principal); I42.9 Cardiomyopathy, unspecified; I25.10 Atherosclerotic heart disease of native coronary artery without angina pectoris

== ENCOUNTER 2017-11-28 01:07 | Inpatient (IN) | payer MEDICAID, SELFPAY ==
[2017-11-28] VITALS (17 sets, daily range): BP systolic 117–138; BP diastolic 62–71; PULSE 69–93; RESP 11–18; TEMP 36.3–36.8; O2SAT 96–99; BMI 30.3; BMI 29.9; BMI 30.4
--- NOTE | 2017-11-28 01:24 | EKG12_ITS ---
Test Reason : ABNORMAL LABS Blood Pressure : / mmHG Vent. Rate : 078 BPM Atrial Rate : 078 BPM P-R Int : 144 ms QRS Dur : 096 ms QT Int : 370 ms P-R-T Axes : 031 061 072 degrees QTc Int : 421 ms Normal sinus rhythm Normal ECG Confirmed by RUDI SÁNCHEZ ([id number]), editor managing newspaper SARA TRAN ([id number]) on 11/30/2017 1:16:12 PM Referred By: SHIRA Confirmed By:RUDI SÁNCHEZ
[2017-11-28 01:56] LABS: Anion Gap 6 (5-15); BUN 66 mg/dL (7-18); BUN/Creat Ratio 26.5 RATIO (10-20); Calcium,Total 8.9 mg/dL (8.5-10.1); Chloride 106 mmol/L (98-107); Creatinine, Serum 2.49 mg/dL (0.70-1.30); EST Glomerular Filtration Rate 31 mL/min (>60); Est Glom Filt Rate - Afr Amer 37 mL/min (>60); Estimated Creatinine Clearance 37.24 ml/min; Glucose 112 mg/dL (74-106); Potassium 5.5 mmol/L (3.5-5.1); Sodium Level 137 mmol/L (136-145)
--- NOTE | 2017-11-28 02:06 | ED.VISSUMM ---
- ER Visit Summary Date of Service: 11/28/17 Chief Complaint: [Abnormal labs] History of Present Illness: The patient is a 37 M [presents to the emergency department with complaint of abnormal labs. Patient received a call from his primary care physician today telling him that his potassium was high and to come to the emergency department. Patient is never had a problem with high potassium before. Patient does have a history of congestive heart failure and states he has been trying to minimize how much water he drinks. Patient does not take potassium at home. Patient denies recent illness. Patient did have an admission in October of this year where he was diagnosed with congestive heart failure and cardiomyopathy. Patient was transferred from this hospital to [facility] for further management of his condition. Patient does wear an external defibrillator jacket due to low ejection fraction of 25%.] Physical Examination: [HEENT-PERRLA, EOMI. Cranial nerves II through XII grossly intact. TMs clear. Mucous membranes slightly dry. No adenopathy. Cardiovascular-regular rate and rhythm without murmur or ectopy Lungs-clear to auscultation, chest wall stable without crepitus or subcu emphysema Abdomen-normoactive bowel sounds, soft, nontender, no rebound or rigidity, no peritoneal signs. Extremities-intact ?4, normal range of motion, normal pulses, atraumatic] Test Results: [EKG obtained shows sinus rhythm with a ventricular rate of 78 bpm with no acute ST segment changes noted. No significantly peaked T waves noted. Chemistries did show a sodium 137, potassium was 5.5, chloride 106, CO2 25, glucose 112, BUN 66, and creatinine 2.49.] Emergency Department Course and Treatment: [The patient's potassium is elevated and his BUN and creatinine are elevated when compared with prior levels. Patient was given Kayexalate 30 g p.o. She was started on normal saline 150 cc an hour.] Treatment Plan: [Admit] I suspect patient's renal failure may be due to dehydration or overdiuresis. Patient also on a potassium sparing diuretic which may explain some of the elevated potassium. Disposition: [Admit] Impression: [Hyperkalemia Acute renal failure] This note was generated with [employer] software. It may contain incorrect words, spelling, and punctuation that were not noted in review of the chart prior to signing ED Disposition - Plan for ED Patient: Chief Complaint: Abn Labs Referrals: Vicente Jang MD [Primary Care Provider] -
[2017-11-28 02:11] LABS: Absolute Lymphocyte Count 2.04 X10^3/ul (0.83-4.51); Absolute Neutrophil Count 4.1 X10^3/uL (2.0-7.7); Basophil# 0.01 X10^3/uL; Basophil% 0.1 % (0-1); Eosinophil# 0.24 X10^3/uL; Eosinophils% 3.5 % (0-5); Hematocrit 33.8 % (40-54); Hemoglobin 11.5 g/dl (13.0-16.5); Lymphocyte # 2.04 X10^3/ul (4.0); Lymphocyte % 29.6 % (19-41); Mean Corpuscular Hgb 25.1 pg (27.0-32.0); Mean Corpuscular Volume 73.6 fL (80-94); Mean Platelet Vol. 9.4 fl (6.2-12.0); Monocyte% 7.3 % (0-10); Neutrophil # 4.08 X10^3/uL (2.7-7.7); Neutrophil % 59.2 % (47-70); POSITIVE COUNT NO; POSITIVE DIFFERENTIAL NO; POSITIVE MORPHOLOGY NO; Platelet Count 138 K/mm3 (150-450); RBC Distribution Width CV 15.2 % (11.6-14.6); Red Blood Count 4.59 M/mm3 (4.6-6.2); White Blood Count 6.9 K/mm3 (4.4-11.0)
[2017-11-28] MEDS: 0.9% Normal Saline 1,000 ML 150 ML IV (02:12)
[2017-11-28] MEDS: Sodium Polystyrene Sulfonate 15 GM/60 ML UDC 30 GM PO (02:14)
--- NOTE | 2017-11-28 02:42 | PCM.HP.STD ---
Problem List (1) Acute kidney injury Status: Acute (2) Hyperkalemia Status: Acute (3) Nonrheumatic tricuspid valve regurgitation Status: Chronic (4) Nonrheumatic mitral valve regurgitation Status: Chronic (5) Pulmonary hypertension Status: Chronic (6) Atherosclerotic heart disease of [place] coronary artery without angina pectoris Status: Chronic Qualifiers: [place] vs. transplanted heart: [place] heart Qualified Code(s): I25.10 - Atherosclerotic heart disease of [place] coronary artery without angina pectoris Comment: chronically occluded LAD and RCA with good collaterals (7) HTN (hypertension) Status: Chronic Qualifiers: Hypertension type: essential hypertension Qualified Code(s): I10 - Essential (primary) hypertension (8) Cardiomyopathy Status: Chronic Qualifiers: Cardiomyopathy type: unspecified Qualified Code(s): I42.9 - Cardiomyopathy, unspecified (9) Valvular heart disease Status: Chronic (10) Systolic CHF Status: Chronic Qualifiers: Heart failure chronicity: chronic Qualified Code(s): I50.22 - Chronic systolic (congestive) heart failure History of Present Illness Date of Admission: 11/28/17 Chief Complaint: Abnormal labs The patient is a 37 y/o M w/ PMHx: Diabetes mellitus type II, Systolic CHF, Cardiomyopathy Unclear Specific Type, Pulmonary HTN, Valvular Heart Disease w/ 3+ MVI, 2+ TVI, HTN, HLD, Fe deficiency anemia, Obesity, recently admitted 10/2017 with acute CHF exacerbation with transfer to [facility] secondary to reduced EF, elevated RVSP, valve disease with pericardial effusion with evaluation at OSH w/ placement HM and cardiac MRI which was not marked who now re-presents to the [facility] ED on 11/28/17 per PCP recommendation secondary to routine visit abnormal labs. He does report history of poor oral intake recently with attempt to avoid decompensation. He notes limitation of 2000 cc per day currently. He notes weight has been trending downward. He notes otherwise he has been feeling well. In the ED work-up included AF< HR 80s, BP 134/71, RR 16, 99% on RA, CBC w/ WBC 6.9, Hgb 11.5, Plts 138 without shift, BMP w/ K 5.5, BUN/Cr 66/2.49, glucose 112, EKG SR without acute evidence of ischemia. In the ED patient administered 1L NS, kayexelate 30 gm x 1. Past Medical History Past Medical History (Chronic Problems): Chronic Problems (Last Reviewed 11/05/17 @ 13:24 by Leticia Perrin) Systolic CHF (Chronic) Acute on chronic systolic (congestive) heart failure (Chronic) Nonrheumatic tricuspid valve regurgitation (Chronic) Nonrheumatic mitral valve regurgitation (Chronic) Pulmonary hypertension (Chronic) Atherosclerotic heart disease of [place] coronary artery without angina pectoris (Chronic) chronically occluded LAD and RCA with good collaterals HTN (hypertension) (Chronic) Cardiomyopathy (Chronic) Valvular heart disease (Chronic) Allergies No Known Allergies Allergy (Verified 11/28/17 01:13) Home Medications: Ambulatory Orders Medication Instructions Recorded Glimepiride [Amaryl] 4 mg PO DAILY 10/24/17 Metformin HCl [Glucophage] 1,000 mg PO BIDCM 10/24/17 aspirin 81 mg tablet,delayed 81 mg PO QDAY tab 11/04/17 release atorvastatin 40 mg tablet 40 mg PO QDAY 11/04/17 carvedilol 25 mg tablet 25 mg PO BID 11/04/17 furosemide 20 mg tablet 20 mg PO DAILY tab 11/04/17 lisinopril 20 mg tablet 20 mg PO QDAY 11/04/17 multivitamin tablet 1 tab PO QDAY 11/04/17 spironolactone 25 mg tablet 25 mg PO QDAY 11/04/17 ascorbic acid (vitamin C) 500 mg 500 mg PO DAILY ea 11/05/17 capsule Surgical History: - - tube placements in ears as child, tonque clipped as infant Psychiatric History: No pertinent psych hx Lives: Alone Smoking Status: Never smoker Tobacco Use: Non-smoker Alcohol: Rare Drugs: None - *Family History Paternal History Items: Heart Disease Maternal History Items: No pertinent history Review of Systems Constitutional: Reports: Weakness, Fatigue. Denies: Chills, Fever, Weight Change HEENT: Denies: Head Aches, Sinus Congestion, Sinus Drainage Cardiovascular: Denies: Chest Pain, Edema, Heaviness, Light Headedness, Orthopnea, Palpitations Respiratory: Reports: Shortness of breath upon exertion. Denies: Cough, Shortness of breath at rest, Sputum production Gastrointestinal: Denies: Abdominal Pain, Nausea, Vomiting Genitourinary: Denies: Dysuria Musculoskeletal: Denies: Joint Pain, Joint Tenderness Skin: Denies: Rash, Wounds Neurological: Denies: Numbness, Tingling, Focal weakness Psychiatric: Denies: Anxiety, Depression, Homicidal Ideations, Suicidal Ideations Hematologic/ Lymphatic: Denies: Easy Bruising, Easy Bleeding VTE Information - Inpt Only VTE Present on Admission: No VTE Mechan Device Prophylaxis: SCD's VTE Pharm Prophylaxis ordered?: Yes Patient Problems: Active and Suspected Problems (Last Reviewed 11/05/17 @ 13:24 by Leticia Perrin) Acute kidney injury (Acute) Hyperkalemia (Acute) Subjective: Seated upright in the ED bed, NAD, fatigued appearing. Objective: Physical Examination: General: awake, alert, oriented x 3 and cooperative, seated upright in the ED bed in no apparent distress. Skin: normal color, turgor, no icterus, cyanosis. HEENT: AT/NC, EOMI, PERRLA, moderately dry MM, no carotid bruits or JVD noted. Lungs: CTA bilaterally, moderate effort, mild decrease BL bases, no rales, ronchi or wheezing. Heart: Regular rate and rhythm; no gallop, rub audible, HM in place, SM. Abdomen: soft, obesem NTTP, ND, normal BS, no HSM. Extremities: no cyanosis, clubbing, or edema. Neurological: patient awake, alert, oriented x 3; cognitive function intact; pupils equally reactive to light and accomodation; cranial nerves II-XII grossly normal, moving all 4 extremities, no focal deficits, strength mildly globally decreased. Psychiatric: affect appears fatigued, no acute evidence of depressive or anxiety feelings. - Physical Exam Vital Signs Temp Pulse Resp BP Pulse Ox 97.4 F L 81 13 117/68 99 11/28/17 02:16 11/28/17 02:16 11/28/17 02:16 11/28/17 02:16 11/28/17 02:16 Oxygen Delivery Method Room Air Weight: 193 lb 12.581 oz Body Mass Index (BMI) 30.3 Laboratory Tests Past 24 Hrs 11/28/17 11/28/17 01:24 01:34 WBC 6.9 RBC 4.59 L Hgb 11.5 L Hct 33.8 L MCV 73.6 L MCH 25.1 L MCHC 34.0 RDW 15.2 H RDW Differential 40.0 Plt Count 138 L MPV 9.4 Immature Gran % (Auto) 0.300 Neut % (Auto) 59.2 Lymph % (Auto) 29.6 [place] % (Auto) 7.3 Eos % (Auto) 3.5 Baso % (Auto) 0.1 Absolute Neuts (auto) 4.1 Absolute Lymphs (auto) 2.04 Total Counted Not Reportable Sodium 137 Potassium 5.5 H Chloride 106 Carbon Dioxide 25.0 Anion Gap 6 BUN 66 H Creatinine 2.49 H Estim Creat Clear Calc 37.24 Est GFR (MDRD) Af Amer 37 L Est GFR (MDRD) Non-Af 31 L BUN/Creatinine Ratio 26.5 H Glucose 112 H Calcium 8.9 Assessment/Plan Active and Suspected Problems (Last Reviewed 11/05/17 @ 13:24 by Leticia Perrin) Acute kidney injury (Acute) Hyperkalemia (Acute) The patient is a 37 y/o M w/ PMHx: Diabetes mellitus type II, Systolic CHF, Cardiomyopathy Unclear Specific Type, Pulmonary HTN, Valvular Heart Disease w/ 3+ MVI, 2+ TVI, HTN, HLD, Fe deficiency anemia, Obesity, recently admitted 10/2017 with acute CHF exacerbation with transfer to [facility] secondary to reduced EF, elevated RVSP, valve disease with pericardial effusion with evaluation at OSH w/ placement HM and cardiac MRI which was not marked who now re-presents to the [facility] ED on 11/28/17 per PCP recommendation secondary to routine visit abnormal labs. (1) Acute kidney injury: Secondary to nephrotoxic medications, poor intake. Admission BUN/Cr 66/2.47, prior baseline creatinine noted to be 1.2. Will gently hydrate given EF, hold nephrotoxic medications and repeat chemistry in AM. Will obtain FeNa assessment. If no improvement would plan renal US. (2) Hyperkalemia, Mild: Admission K 5.5, kayexelate administered in the ED, hydrating as noted, repeat BMP in AM. (3) Systolic CHF, cardiomyopathy unclear type: 10/2017 ECHO w/ mildly late dilated LV, severe global LV systolic dysfunction, EF 25%, mildly enlarged LA, borderline enlarged RA, mild diffuse MV thickening, moderately severe 3+ mitral valve insufficiency, moderate TV insufficiency, trivial pulmonic valve insufficiency, small to moderate pericardial effusion, no evidence of cardiac tamponade, RVSP 42 mmHg, transmitral diastolic flow velocities suggestive of diastolic dysfunction. 10/2017 Cardiac catheterization with reduced EF at 20%, global hypokinesis, moderate to severe pulmonary htn, moderate to severe elevated Right heart pressures, elevated LV end diastolic pressure, and moderate mitral valve insufficiency. Maintain on home regimen asa, statin, coreg, holding ACEI, holding lasix, holding spironolactone. (4) Valvular heart disease: 10/2017 ECHO w/ mildly late dilated LV, severe global LV systolic dysfunction, EF 25%, mildly enlarged LA, borderline enlarged RA, mild diffuse MV thickening, moderately severe 3+ mitral valve insufficiency, moderate TV insufficiency, trivial pulmonic valve insufficiency, small to moderate pericardial effusion, no evidence of cardiac tamponade, RVSP 42 mmHg, transmitral diastolic flow velocities suggestive of diastolic dysfunction. (5) Diabetes mellitus type II: Hold oral home regimen, ADA diet, accu checks w/ ISS. (6) Obesity: Weight loss and lifestyle changes encouraged, nutrition consulted for education. (7) Fe Deficiency Anemia: Continue home Fe supplementation. (8) DVT Prophylaxis: SCDs, heparin. Code Visit Inpatient E&M: 58758 Init Hosp L3
--- NOTE | 2017-11-28 02:54 | HP.PCM_ITS ---
Problem List (1) Acute kidney injury Status: Acute (2) Hyperkalemia Status: Acute (3) Nonrheumatic tricuspid valve regurgitation Status: Chronic (4) Nonrheumatic mitral valve regurgitation Status: Chronic (5) Pulmonary hypertension Status: Chronic (6) Atherosclerotic heart disease of [place] coronary artery without angina pectoris Status: Chronic Qualifiers: [place] vs. transplanted heart: [place] heart Qualified Code(s): I25.10 - Atherosclerotic heart disease of [place] coronary artery without angina pectoris Comment: chronically occluded LAD and RCA with good collaterals (7) HTN (hypertension) Status: Chronic Qualifiers: Hypertension type: essential hypertension Qualified Code(s): I10 - Essential (primary) hypertension (8) Cardiomyopathy Status: Chronic Qualifiers: Cardiomyopathy type: unspecified Qualified Code(s): I42.9 - Cardiomyopathy , unspecified (9) Valvular heart disease Status: Chronic (10) Systolic CHF Status: Chronic Qualifiers: Heart failure chronicity: chronic Qualified Code(s): I50.22 - Chronic systolic (congestive) heart failure History of Present Illness Date of Admission: 11/28/17 Chief Complaint: Abnormal labs The patient is a 37 y/o M w/ PMHx: Diabetes mellitus type II, Systolic CHF, Cardiomyopathy Unclear Specific Type, Pulmonary HTN, Valvular Heart Disease w/ 3 + MVI, 2+ TVI, HTN, HLD, Fe deficiency anemia, Obesity, recently admitted 2017 with acute CHF exacerbation with transfer to [facility] secondary to reduced EF, elevated RVSP, valve disease with pericardial effusion with evaluation at OSH w/ placement HM and cardiac MRI which was not marked who now re-presents to the [facility] ED on 11/28/17 per PCP recommendation secondary to routine visit abnormal labs. He does report history of poor oral intake recently with attempt to avoid decompensation. He notes limitation of 2000 cc per day currently. He notes weight has been trending downward. He notes otherwise he has been feeling well. In the ED work-up included AF< HR 80s, BP 134/71, RR 16, 99% on RA, CBC w/ WBC 6.9, Hgb 11.5, Plts 138 without shift, BMP w/ K 5.5, BUN/Cr 66/2.49, glucose 112, EKG SR without acute evidence of ischemia. In the ED patient administered 1L NS, kayexelate 30 gm x 1. Past Medical History Past Medical History (Chronic Problems): Chronic Problems (Last Reviewed 11/05/17 @ 13:24 by Leticia Perrin) Systolic CHF (Chronic) Acute on chronic systolic (congestive) heart failure (Chronic) Nonrheumatic tricuspid valve regurgitation (Chronic) Nonrheumatic mitral valve regurgitation (Chronic) Pulmonary hypertension (Chronic) Atherosclerotic heart disease of [place] coronary artery without angina pectoris (Chronic) chronically occluded LAD and RCA with good collaterals HTN (hypertension) (Chronic) Cardiomyopathy (Chronic) Valvular heart disease (Chronic) Allergies No Known Allergies Allergy (Verified 11/28/17 01:13) Home Medications: Ambulatory Orders Medication Instructions Recorded Glimepiride [Amaryl] 4 mg PO DAILY 10/24/17 Metformin HCl [Glucophage] 1,000 mg PO BIDCM 10/24/17 aspirin 81 mg tablet,delayed 81 mg PO QDAY tab 11/04/17 release atorvastatin 40 mg tablet 40 mg PO QDAY 11/04/17 carvedilol 25 mg tablet 25 mg PO BID 11/04/17 furosemide 20 mg tablet 20 mg PO DAILY tab 11/04/17 lisinopril 20 mg tablet 20 mg PO QDAY 11/04/17 multivitamin tablet 1 tab PO QDAY 11/04/17 spironolactone 25 mg tablet 25 mg PO QDAY 11/04/17 ascorbic acid (vitamin C) 500 mg 500 mg PO DAILY ea 11/05/17 capsule Surgical History: - - tube placements in ears as child, tonque clipped as infant Psychiatric History: No pertinent psych hx Lives: Alone Smoking Status: Never smoker Tobacco Use: Non-smoker Alcohol: Rare Drugs: None - *Family History Paternal History Items: Heart Disease Maternal History Items: No pertinent history Review of Systems Constitutional: Reports: Weakness, Fatigue. Denies: Chills, Fever, Weight Change HEENT: Denies: Head Aches, Sinus Congestion, Sinus Drainage Cardiovascular: Denies: Chest Pain, Edema, Heaviness, Light Headedness, Orthopnea, Palpitations Respiratory: Reports: Shortness of breath upon exertion. Denies: Cough, Shortness of breath at rest, Sputum production Gastrointestinal: Denies: Abdominal Pain, Nausea, Vomiting Genitourinary: Denies: Dysuria Musculoskeletal: Denies: Joint Pain, Joint Tenderness Skin: Denies: Rash, Wounds Neurological: Denies: Numbness, Tingling, Focal weakness Psychiatric: Denies: Anxiety, Depression, Homicidal Ideations, Suicidal Ideations Hematologic/ Lymphatic: Denies: Easy Bruising, Easy Bleeding VTE Information - Inpt Only VTE Present on Admission: No VTE Mechan Device Prophylaxis: SCD's VTE Pharm Prophylaxis ordered?: Yes Patient Problems: Active and Suspected Problems (Last Reviewed 11/05/17 @ 13:24 by Leticia Perrin) Acute kidney injury (Acute) Hyperkalemia (Acute) Subjective: Seated upright in the ED bed, NAD, fatigued appearing. Objective: Physical Examination: General: awake, alert, oriented x 3 and cooperative, seated upright in the ED bed in no apparent distress. Skin: normal color, turgor, no icterus, cyanosis. HEENT: AT/NC, EOMI, PERRLA, moderately dry MM, no carotid bruits or JVD noted. Lungs: CTA bilaterally, moderate effort, mild decrease BL bases, no rales, ronchi or wheezing. Heart: Regular rate and rhythm; no gallop, rub audible, HM in place, SM. Abdomen: soft, obesem NTTP, ND, normal BS, no HSM. Extremities: no cyanosis, clubbing, or edema. Neurological: patient awake, alert, oriented x 3; cognitive function intact; pupils equally reactive to light and accomodation; cranial nerves II-XII grossly normal, moving all 4 extremities, no focal deficits, strength mildly globally decreased. Psychiatric: affect appears fatigued, no acute evidence of depressive or anxiety feelings. - Physical Exam Vital Signs Temp Pulse Resp BP Pulse Ox 97.4 F L 81 13 117/68 99 11/28/17 02:16 11/28/17 02:16 11/28/17 02:16 11/28/17 02:16 11/28/17 02:16 Oxygen Delivery Method Room Air Weight: 193 lb 12.581 oz Body Mass Index (BMI) 30.3 Laboratory Tests Past 24 Hrs 11/28/17 11/28/17 01:24 01:34 WBC 6.9 RBC 4.59 L Hgb 11.5 L Hct 33.8 L MCV 73.6 L MCH 25.1 L MCHC 34.0 RDW 15.2 H RDW Differential 40.0 Plt Count 138 L MPV 9.4 Immature Gran % (Auto) 0.300 Neut % (Auto) 59.2 Lymph % (Auto) 29.6 [place] % (Auto) 7.3 Eos % (Auto) 3.5 Baso % (Auto) 0.1 Absolute Neuts (auto) 4.1 Absolute Lymphs (auto) 2.04 Total Counted Not Reportable Sodium 137 Potassium 5.5 H Chloride 106 Carbon Dioxide 25.0 Anion Gap 6 BUN 66 H Creatinine 2.49 H Estim Creat Clear Calc 37.24 Est GFR (MDRD) Af Amer 37 L Est GFR (MDRD) Non-Af 31 L BUN/Creatinine Ratio 26.5 H Glucose 112 H Calcium 8.9 Assessment/Plan Active and Suspected Problems (Last Reviewed 11/05/17 @ 13:24 by Leticia Perrin) Acute kidney injury (Acute) Hyperkalemia (Acute) The patient is a 37 y/o M w/ PMHx: Diabetes mellitus type II, Systolic CHF, Cardiomyopathy Unclear Specific Type, Pulmonary HTN, Valvular Heart Disease w/ 3 + MVI, 2+ TVI, HTN, HLD, Fe deficiency anemia, Obesity, recently admitted 2017 with acute CHF exacerbation with transfer to [facility] secondary to reduced EF, elevated RVSP, valve disease with pericardial effusion with evaluation at OSH w/ placement HM and cardiac MRI which was not marked who now re-presents to the [facility] ED on 11/28/17 per PCP recommendation secondary to routine visit abnormal labs. (1) Acute kidney injury: Secondary to nephrotoxic medications, poor intake. Admission BUN/Cr 66/2.47, prior baseline creatinine noted to be 1.2. Will gently hydrate given EF, hold nephrotoxic medications and repeat chemistry in AM. Will obtain FeNa assessment. If no improvement would plan renal US. (2) Hyperkalemia, Mild: Admission K 5.5, kayexelate administered in the ED, hydrating as noted, repeat BMP in AM. (3) Systolic CHF, cardiomyopathy unclear type: 10/2017 ECHO w/ mildly late dilated LV, severe global LV systolic dysfunction, EF 25%, mildly enlarged LA, borderline enlarged RA, mild diffuse MV thickening, moderately severe 3+ mitral valve insufficiency, moderate TV insufficiency, trivial pulmonic valve insufficiency, small to moderate pericardial effusion, no evidence of cardiac tamponade, RVSP 42 mmHg, transmitral diastolic flow velocities suggestive of diastolic dysfunction. 10/2017 Cardiac catheterization with reduced EF at 20%, global hypokinesis, moderate to severe pulmonary htn, moderate to severe elevated Right heart pressures, elevated LV end diastolic pressure, and moderate mitral valve insufficiency. Maintain on home regimen asa, statin, coreg , holding ACEI, holding lasix, holding spironolactone. (4) Valvular heart disease: 10/2017 ECHO w/ mildly late dilated LV, severe global LV systolic dysfunction, EF 25%, mildly enlarged LA, borderline enlarged RA, mild diffuse MV thickening, moderately severe 3+ mitral valve insufficiency , moderate TV insufficiency, trivial pulmonic valve insufficiency, small to moderate pericardial effusion, no evidence of cardiac tamponade, RVSP 42 mmHg, transmitral diastolic flow velocities suggestive of diastolic dysfunction. (5) Diabetes mellitus type II: Hold oral home regimen, ADA diet, accu checks w/ ISS. (6) Obesity: Weight loss and lifestyle changes encouraged, nutrition consulted for education. (7) Fe Deficiency Anemia: Continue home Fe supplementation. (8) DVT Prophylaxis: SCDs, heparin. Code Visit Inpatient E&M: 78742 Init Hosp L3
[2017-11-28 04:53] LABS: Hematocrit 34.2 % (40-54); Hemoglobin 11.1 g/dl (13.0-16.5); Mean Corp Hgb Conc 32.5 g/gl (32-36); Mean Corpuscular Hgb 24.5 pg (27.0-32.0); Mean Corpuscular Volume 75.5 fL (80-94); Mean Platelet Vol. 8.5 fl (6.2-12.0); Platelet Count 111 K/mm3 (150-450); RBC Distribution Width CV 15.4 % (11.6-14.6); RBC Distribution Width SD 42.4 fl (35.1-43.9); Red Blood Count 4.53 M/mm3 (4.6-6.2); White Blood Count 6.5 K/mm3 (4.4-11.0)
[2017-11-28 04:54] LABS: Scan Indicated on CBC? Y/N NO
[2017-11-28] MEDS: 0.9% Normal Saline 1,000 ML 100 ML IV ×2 (04:55→14:53)
[2017-11-28 04:59] LABS: Anion Gap 7 (5-15); BUN 62 mg/dL (7-18); BUN/Creat Ratio 26.8 RATIO (10-20); Calcium,Total 8.7 mg/dL (8.5-10.1); Chloride 108 mmol/L (98-107); Creatinine, Serum 2.31 mg/dL (0.70-1.30); EST Glomerular Filtration Rate 34 mL/min (>60); Est Glom Filt Rate - Afr Amer 41 mL/min (>60); Estimated Creatinine Clearance 40.14 ml/min; Glucose 62 mg/dL (74-106); Magnesium 1.7 mg/dL (1.6-2.6); Potassium 4.9 mmol/L (3.5-5.1); Sodium Level 139 mmol/L (136-145)
[2017-11-28 05:05] LABS: Urine Sodium 57 mmol/L (Not Establ.)
[2017-11-28 07:41] LABS: Bedside Glucose 61 mg/dL (70-110)
[2017-11-28 07:41] LABS: Bedside Glucose 52 mg/dL (70-110)
[2017-11-28 07:41] LABS: Bedside Glucose 80 mg/dL (70-110)
[2017-11-28] MEDS: Carvedilol 25 MG Tablet PO ×2 (09:16→21:38)
[2017-11-28] MEDS: Aspirin E.C. 81 MG Tablet PO (09:16)
--- NOTE | 2017-11-28 10:11 | PCM.CONS.C ---
Problem List (1) Acute kidney injury Status: Acute (2) Hyperkalemia Status: Acute (3) Systolic CHF Status: Chronic Qualifiers: Heart failure chronicity: chronic Qualified Code(s): I50.22 - Chronic systolic (congestive) heart failure (4) Nonrheumatic mitral valve regurgitation Status: Chronic (5) Atherosclerotic heart disease of [place] coronary artery without angina pectoris Status: Chronic Qualifiers: [place] vs. transplanted heart: [place] heart Qualified Code(s): I25.10 - Atherosclerotic heart disease of [place] coronary artery without angina pectoris Comment: chronically occluded LAD and RCA with good collaterals (6) HTN (hypertension) Status: Chronic Qualifiers: Hypertension type: essential hypertension Qualified Code(s): I10 - Essential (primary) hypertension (7) Cardiomyopathy Status: Chronic Qualifiers: Cardiomyopathy type: unspecified Qualified Code(s): I42.9 - Cardiomyopathy, unspecified Reason for Consult Date of Consultation: 11/28/17 Reason for Consultation: Hyperkalemia, acute on chronic renal insufficiency, ischemic cardiomyopathy, coronary disease, hyperlipidemia. History of Present Illness: The patient is a 37 year old M, patient of Dr. Marcum, who was recently admitted in October 2017 for acute congestive heart failure symptoms. At that time he was seen by Dr. Murphy and underwent a 2D echo with Doppler on 10/26/17. This demonstrated severe LV dysfunction predominantly of the anteroseptal wall with an EF around 25%, moderate to severe mitral regurgitation, RVSP of 51 mmHg, small to moderate circumferential pericardial effusion without evidence of tamponade. In addition he underwent a left heart catheterization which demonstrated an occluded proximal LAD with left to left and particularly right to left collaterals. His left circumflex and RCA systems were free of significant disease. The patient was treated medically with Coreg, lisinopril, Lasix and spironolactone. Has a routine follow-up he underwent repeat labs yesterday which demonstrated acute on chronic renal insufficiency, and hyperkalemia. The patient was referred to [facility] ER and admitted for IV fluid rehydration. In addition the patient has a history of diabetes diagnosed around 8 years ago, hypercholesterolemia, and if recently complained of dizziness, lightheadedness, but no syncope. He denies any chest pain symptoms. I do not believe the patient had a viability scan, Dr. Moodispaw's catheterization note suggested possible transfer to tertiary care center for viability study, pericardiocentesis/window, and evaluation for mitral valve repair. It appears the patient was to be treated medically to improve his symptoms and then follow through with these additional studies. [] Past Medical History Allergies/Adverse Reactions: Allergies No Known Allergies Allergy (Verified 11/28/17 01:13) Home Medications: Ambulatory Orders Medication Instructions Recorded Glimepiride [Amaryl] 4 mg PO DAILY 10/24/17 Metformin HCl [Glucophage] 1,000 mg PO BIDCM 10/24/17 aspirin 81 mg tablet,delayed 81 mg PO QDAY tab 11/04/17 release atorvastatin 40 mg tablet 40 mg PO QDAY 11/04/17 carvedilol 25 mg tablet 25 mg PO BID 11/04/17 furosemide 20 mg tablet 20 mg PO DAILY tab 11/04/17 lisinopril 20 mg tablet 20 mg PO QDAY 11/04/17 multivitamin tablet 1 tab PO QDAY 11/04/17 spironolactone 25 mg tablet 25 mg PO QDAY 11/04/17 ascorbic acid (vitamin C) 500 mg 500 mg PO DAILY ea 11/05/17 capsule Past Medical History (Chronic Problems): Chronic Problems (Last Reviewed 11/05/17 @ 13:24 by Leticia Perrin) Systolic CHF (Chronic) Acute on chronic systolic (congestive) heart failure (Chronic) Nonrheumatic tricuspid valve regurgitation (Chronic) Nonrheumatic mitral valve regurgitation (Chronic) Pulmonary hypertension (Chronic) Atherosclerotic heart disease of [place] coronary artery without angina pectoris (Chronic) chronically occluded LAD and RCA with good collaterals HTN (hypertension) (Chronic) Cardiomyopathy (Chronic) Valvular heart disease (Chronic) Surgical History: - - tube placements in ears as child, tonque clipped as infant Psychiatric History: No pertinent psych hx - *Family History Paternal Family History: Family History (Last Reviewed 11/05/17 @ 13:24 by Leticia Perrin) Father Heart disease Grandmother Heart disease History Items: Heart Disease Maternal Family History: Family History (Last Reviewed 11/05/17 @ 13:24 by Leticia Perrin) Father Heart disease Grandmother Heart disease History Items: No pertinent history Lives: Alone Smoking Status: Never smoker Tobacco Use: Non-smoker Alcohol: Rare Drugs: None Review of Systems - Review of Systems General: Denies: Fever, Night Sweats, Fatigue Cardiovascular: Reports: Lightheadedness, Dizziness. Denies: Chest Discomfort, Shortness of Breath, Orthopnea, PND, Peripheral Edema, Palpitations, Near Syncope, Syncope Respiratory: Denies: Cough, Sputum Production, Hemoptysis Gastrointestinal: Denies: Hematemesis, Hematochezia, Melena Genitourinary: Denies: Dysuria, Hematuria Skin: Denies: Rash Subjectve: Patient laying in bed, no acute distress. IV fluids infusing at 100 cc/h. Objective: Vital Signs Temp Pulse Resp BP Pulse Ox 97.6 F L 78 18 135/68 H 98 11/28/17 09:10 11/28/17 09:10 11/28/17 09:10 11/28/17 09:10 11/28/17 09:10 Oxygen Delivery Method Room Air Weight: 191 lb 2.252 oz Body Mass Index (BMI) 29.9 Intake and Output for Last 24 Hours 11/26/17 11/27/17 11/28/17 23:59 23:59 23:59 Intake Total 113 / 113 Balance 113 / 113 General: Awake, Alert, Oriented x 3 HEENT: PERRL, EOMI, Sclera Non Icteric Neck: Supple, Good ROM, No Lymph Node Enlargement Lungs: Clear to auscultation Cardiovascular: Regular Rhythm, Normal S1, Normal S2, No Rubs, No Gallops Murmur Murmur: Grade 2/6, Holosystolic Vascular: No Carotid Bruits, Normal Femoral Pulses, Normal Radial Pulses, Normal Dorsalis Pedal Pulse, Normal Posterior Tibial Pulses Abdomen: Bowel Sounds Present, Soft, Non Tender, No HSM, No Organomegaly Extremities: No Cyanosis, No Clubbing, No edema Neurological: No Focal Motor or Sensory Deficit 11/28/17 04:30: Sodium 139, Potassium 4.9, Chloride 108 H, Carbon Dioxide 24.0, Anion Gap 7, BUN 62 H, Creatinine 2.31 H, Est GFR (MDRD) Af Amer 41 L, Est GFR (MDRD) Non-Af 34 L, BUN/Creatinine Ratio 26.8 H, Glucose 62 L, Calcium 8.7, Magnesium 1.7 11/28/17 04:30: WBC 6.5, RBC 4.53 L, Hgb 11.1 L, Hct 34.2 L, MCV 75.5 L, MCH 24.5 L, MCHC 32.5, RDW 15.4 H, RDW Differential 42.4, Plt Count 111 L, MPV 8.5 Rhythm: EKG: Normal sinus rhythm, within normal limits. ECHO: Pending Stress Test: Cardiac Cath: PCI: CT Surgery: Holter monitor: EPS: PPM: CXR: Chest CT Scan: Assessment/Plan 1. Ischemic cardiomyopathy: The patient presented about a month ago with congestive heart failure symptoms and was found to have severe ischemic cardiomyopathy with an EF around 25%. Catheterization demonstrated an occluded proximal LAD with left to left and right to left collaterals via the septal perforators. Patient was treated medically with Coreg, lisinopril, Aldactone and Lasix and now returns with acute on chronic renal insufficiency, dehydration, and hyperkalemia. At this point I would recommend holding his TEQUILA inhibitor, Lasix and Aldactone. It appears he would not be a good Aldactone candidate going forward. Once he has been rehydrated and his renal insufficiency has improved as well as his potassium has normalized, I would recommend reintroduction of afterload reducing agents such as hydralazine 10 mg p.o. 3 times daily. I would avoid TEQUILA inhibitors at this time and would recommend using Coreg's alpha blocking properties for afterload reduction. Patient may continue Coreg therapy at this time. Would also recommend holding his diuretic therapy at this time. A larger question is whether or not the patient would benefit from revascularization therapy to his occluded LAD and/or mitral valve repair to assist with pulmonary hypertension. Patient will require a viability study such as a resting thallium to determine if he has anterior wall viability. If he does have anterior wall viability I would recommend he be referred to a tertiary care center for mitral valve repair and single-vessel MACIAS to LAD, as well as pericardial drainage. To that end we will repeat his echocardiogram to track the progress of his pericardial effusion. The patient's pericardial effusion is worse, I would have a low threshold for transfer to a tertiary care center such as [facility] for further therapy. Unfortunately were unable to perform a resting thallium this weekend but may do so on Thursday morning. Patient will most likely be here until that time so I will order this in the computer. Given the patient's acute on chronic renal insufficiency and recent catheterization I would not recommend repeat catheterization or attempted chronic total occlusion percutaneous intervention unless the patient has significant viability and surgery is not an option. Patient may require a transesophageal echocardiogram to better evaluate his degree of mitral regurgitation, mechanics of mitral regurgitation to facilitate mitral valve repair, as well as to evaluate his tricuspid regurgitation to determine if he requires TV repair as well. 2. Thank you very much for the opportunity to participate in the cardiac care of your patient. Consultation time took place between 9 AM and 9:30 AM. Code Visit Inpatient E&M: 48104 Init Hosp L2
--- NOTE | 2017-11-28 10:15 | ECHOD_ITS ---
Reason For Study: CAD/ASHD Procedure This was a 2D Doppler, Color Flow transthoracic echocardiogram. Exam performed portable in patient room. Left Ventricle Mildly dilated left ventricle. The estimated ejection fraction is 35-40 %. Normal diastology for age. There is moderate global hypokinesis of the left ventricle. Right Ventricle Mildly dilated right ventricle. Normal systolic function. Atria The left atrium is moderately enlarged. Normal right atrium. Normal atrial septum. Mitral Valve Mild diffuse mitral valve thickening. Mild-Moderate (1-2+) mitral valve insufficiency. Tricuspid Valve Normal tricuspid valve. Mild (1+) tricuspid valve insufficiency. Right ventricular systolic pressure estimated to be 40 mmHg. Aortic Valve Trisinus/trileaflet aortic valve. Pulmonic Valve Normal pulmonic valve. Great Vessels Normal aortic root. Normal arch. Normal inferior vena cava. Inferior vena cava collapse with sniff. Pericardium/Pleural Trivial pericardial effusion. There are no echocardiographic indications of cardiac tamponade. MMode/2D Measurements & Calculations LVIDd: 5.2 cm IVSd: 1.2 cm Ao root diam: 3.1 cm LVIDs: 4.3 cm LVPWd: 1.1 cm LA dimension: 4.0 cm RVDd: 3.8 cm FS: 17.3 % LAV(MOD-bp): 84.9 ml LA A4 area: 24.3 cm2 RA A4 area: 18.4 cm2 LAV(MOD-bp) Indexed: 42.8 ml/m2 LAV(MOD-sp2): 75.3 ml LAV(MOD-sp4): 77.2 ml Time Measurements MV dec time: 0.19 sec Doppler Measurements & Calculations MV E max manuel: 120.1 cm/sec Lat Peak E' Manuel: 18.6 cm/sec Med Peak E' Manuel: 8.7 cm/sec MV A max manuel: 76.7 cm/sec E/E' lat: 6.5 E/E' med: 13.8 MV E/A: 1.6 Ao V2 max: 148.5 cm/sec LV V1 max: 79.3 cm/sec MR max manuel: 541.0 cm/sec Ao max P.8 mmHg LV V1 max P.5 mmHg MR max P.1 mmHg PA V2 max: 95.2 cm/sec PI end-d manuel: 112.1 cm/sec TR max manuel: 269.0 cm/sec TR max P.2 mmHg Interpretation Summary Mildly dilated left ventricle. The estimated ejection fraction is 35-40 %. Normal diastology for age. There is moderate global hypokinesis of the left ventricle. Mildly dilated right ventricle. The left atrium is moderately enlarged. Mild-Moderate (1-2+) mitral valve insufficiency. Mild (1+) tricuspid valve insufficiency. Right ventricular systolic pressure estimated to be 40 mmHg. Trivial pericardial effusion. There are no echocardiographic indications of cardiac tamponade. Compared to echo report dated 10/26/2017, LV function has improved from 25% to 40%; RVSP has remained the same. MR has improved as well. Ordering Physician: Juan A Bermeo Referring Physician: Augusto Murphy Performed By: Ines Hayes RDCS, RVT
--- NOTE | 2017-11-28 10:23 | CON.PCM_ITS ---
Problem List (1) Acute kidney injury Status: Acute (2) Hyperkalemia Status: Acute (3) Systolic CHF Status: Chronic Qualifiers: Heart failure chronicity: chronic Qualified Code(s): I50.22 - Chronic systolic (congestive) heart failure (4) Nonrheumatic mitral valve regurgitation Status: Chronic (5) Atherosclerotic heart disease of [place] coronary artery without angina pectoris Status: Chronic Qualifiers: [place] vs. transplanted heart: [place] heart Qualified Code(s): I25.10 - Atherosclerotic heart disease of [place] coronary artery without angina pectoris Comment: chronically occluded LAD and RCA with good collaterals (6) HTN (hypertension) Status: Chronic Qualifiers: Hypertension type: essential hypertension Qualified Code(s): I10 - Essential (primary) hypertension (7) Cardiomyopathy Status: Chronic Qualifiers: Cardiomyopathy type: unspecified Qualified Code(s): I42.9 - Cardiomyopathy , unspecified Reason for Consult Date of Consultation: 11/28/17 Reason for Consultation: Hyperkalemia, acute on chronic renal insufficiency, ischemic cardiomyopathy, coronary disease, hyperlipidemia. History of Present Illness: The patient is a 37 year old M, patient of Dr. Marcum, who was recently admitted in October 2017 for acute congestive heart failure symptoms. At that time he was seen by Dr. Murphy and underwent a 2D echo with Doppler on . This demonstrated severe LV dysfunction predominantly of the anteroseptal wall with an EF around 25%, moderate to severe mitral regurgitation, RVSP of 51 mmHg, small to moderate circumferential pericardial effusion without evidence of tamponade. In addition he underwent a left heart catheterization which demonstrated an occluded proximal LAD with left to left and particularly right to left collaterals. His left circumflex and RCA systems were free of significant disease. The patient was treated medically with Coreg, lisinopril, Lasix and spironolactone. Has a routine follow-up he underwent repeat labs yesterday which demonstrated acute on chronic renal insufficiency, and hyperkalemia. The patient was referred to [facility] ER and admitted for IV fluid rehydration. In addition the patient has a history of diabetes diagnosed around 8 years ago, hypercholesterolemia, and if recently complained of dizziness, lightheadedness, but no syncope. He denies any chest pain symptoms. I do not believe the patient had a viability scan, Dr. Moodispaw's catheterization note suggested possible transfer to tertiary care center for viability study, pericardiocentesis/window, and evaluation for mitral valve repair. It appears the patient was to be treated medically to improve his symptoms and then follow through with these additional studies. [] Past Medical History Allergies/Adverse Reactions: Allergies No Known Allergies Allergy (Verified 11/28/17 01:13) Home Medications: Ambulatory Orders Medication Instructions Recorded Glimepiride [Amaryl] 4 mg PO DAILY 10/24/17 Metformin HCl [Glucophage] 1,000 mg PO BIDCM 10/24/17 aspirin 81 mg tablet,delayed 81 mg PO QDAY tab 11/04/17 release atorvastatin 40 mg tablet 40 mg PO QDAY 11/04/17 carvedilol 25 mg tablet 25 mg PO BID 11/04/17 furosemide 20 mg tablet 20 mg PO DAILY tab 11/04/17 lisinopril 20 mg tablet 20 mg PO QDAY 11/04/17 multivitamin tablet 1 tab PO QDAY 11/04/17 spironolactone 25 mg tablet 25 mg PO QDAY 11/04/17 ascorbic acid (vitamin C) 500 mg 500 mg PO DAILY ea 11/05/17 capsule Past Medical History (Chronic Problems): Chronic Problems (Last Reviewed 11/05/17 @ 13:24 by Leticia Perrin) Systolic CHF (Chronic) Acute on chronic systolic (congestive) heart failure (Chronic) Nonrheumatic tricuspid valve regurgitation (Chronic) Nonrheumatic mitral valve regurgitation (Chronic) Pulmonary hypertension (Chronic) Atherosclerotic heart disease of [place] coronary artery without angina pectoris (Chronic) chronically occluded LAD and RCA with good collaterals HTN (hypertension) (Chronic) Cardiomyopathy (Chronic) Valvular heart disease (Chronic) Surgical History: - - tube placements in ears as child, tonque clipped as infant Psychiatric History: No pertinent psych hx - *Family History Paternal Family History: Family History (Last Reviewed 11/05/17 @ 13:24 by Leticia Perrin) Father Heart disease Grandmother Heart disease History Items: Heart Disease Maternal Family History: Family History (Last Reviewed 11/05/17 @ 13:24 by Leticia Perrin) Father Heart disease Grandmother Heart disease History Items: No pertinent history Lives: Alone Smoking Status: Never smoker Tobacco Use: Non-smoker Alcohol: Rare Drugs: None Review of Systems - Review of Systems General: Denies: Fever, Night Sweats, Fatigue Cardiovascular: Reports: Lightheadedness, Dizziness. Denies: Chest Discomfort, Shortness of Breath, Orthopnea, PND, Peripheral Edema, Palpitations, Near Syncope, Syncope Respiratory: Denies: Cough, Sputum Production, Hemoptysis Gastrointestinal: Denies: Hematemesis, Hematochezia, Melena Genitourinary: Denies: Dysuria, Hematuria Skin: Denies: Rash Subjectve: Patient laying in bed, no acute distress. IV fluids infusing at 100 cc/h. Objective: Vital Signs Temp Pulse Resp BP Pulse Ox 97.6 F L 78 18 135/68 H 98 11/28/17 09:10 11/28/17 09:10 11/28/17 09:10 11/28/17 09:10 11/28/17 09:10 Oxygen Delivery Method Room Air Weight: 191 lb 2.252 oz Body Mass Index (BMI) 29.9 Intake and Output for Last 24 Hours 11/26/17 11/27/17 11/28/17 23:59 23:59 23:59 Intake Total 113 / 113 Balance 113 / 113 General: Awake, Alert, Oriented x 3 HEENT: PERRL, EOMI, Sclera Non Icteric Neck: Supple, Good ROM, No Lymph Node Enlargement Lungs: Clear to auscultation Cardiovascular: Regular Rhythm, Normal S1, Normal S2, No Rubs, No Gallops Murmur Murmur: Grade 2/6, Holosystolic Vascular: No Carotid Bruits, Normal Femoral Pulses, Normal Radial Pulses, Normal Dorsalis Pedal Pulse, Normal Posterior Tibial Pulses Abdomen: Bowel Sounds Present, Soft, Non Tender, No HSM, No Organomegaly Extremities: No Cyanosis, No Clubbing, No edema Neurological: No Focal Motor or Sensory Deficit 11/28/17 04:30: Sodium 139, Potassium 4.9, Chloride 108 H, Carbon Dioxide 24.0, Anion Gap 7, BUN 62 H, Creatinine 2.31 H, Est GFR (MDRD) Af Amer 41 L, Est GFR ( MDRD) Non-Af 34 L, BUN/Creatinine Ratio 26.8 H, Glucose 62 L, Calcium 8.7, Magnesium 1.7 11/28/17 04:30: WBC 6.5, RBC 4.53 L, Hgb 11.1 L, Hct 34.2 L, MCV 75.5 L, MCH 24.5 L, MCHC 32.5, RDW 15.4 H, RDW Differential 42.4, Plt Count 111 L, MPV 8.5 Rhythm: EKG: Normal sinus rhythm, within normal limits. ECHO: Pending Stress Test: Cardiac Cath: PCI: CT Surgery: Holter monitor: EPS: PPM: CXR: Chest CT Scan: Assessment/Plan 1. Ischemic cardiomyopathy: The patient presented about a month ago with congestive heart failure symptoms and was found to have severe ischemic cardiomyopathy with an EF around 25%. Catheterization demonstrated an occluded proximal LAD with left to left and right to left collaterals via the septal perforators. Patient was treated medically with Coreg, lisinopril, Aldactone and Lasix and now returns with acute on chronic renal insufficiency, dehydration , and hyperkalemia. At this point I would recommend holding his TEQUILA inhibitor, Lasix and Aldactone. It appears he would not be a good Aldactone candidate going forward. Once he has been rehydrated and his renal insufficiency has improved as well as his potassium has normalized, I would recommend reintroduction of afterload reducing agents such as hydralazine 10 mg p.o. 3 times daily. I would avoid TEQUILA inhibitors at this time and would recommend using Coreg's alpha blocking properties for afterload reduction. Patient may continue Coreg therapy at this time. Would also recommend holding his diuretic therapy at this time. A larger question is whether or not the patient would benefit from revascularization therapy to his occluded LAD and/or mitral valve repair to assist with pulmonary hypertension. Patient will require a viability study such as a resting thallium to determine if he has anterior wall viability. If he does have anterior wall viability I would recommend he be referred to a tertiary care center for mitral valve repair and single-vessel MACIAS to LAD, as well as pericardial drainage. To that end we will repeat his echocardiogram to track the progress of his pericardial effusion. The patient's pericardial effusion is worse, I would have a low threshold for transfer to a tertiary care center such as [facility] for further therapy. Unfortunately were unable to perform a resting thallium this weekend but may do so on Thursday morning. Patient will most likely be here until that time so I will order this in the computer. Given the patient's acute on chronic renal insufficiency and recent catheterization I would not recommend repeat catheterization or attempted chronic total occlusion percutaneous intervention unless the patient has significant viability and surgery is not an option. Patient may require a transesophageal echocardiogram to better evaluate his degree of mitral regurgitation, mechanics of mitral regurgitation to facilitate mitral valve repair, as well as to evaluate his tricuspid regurgitation to determine if he requires TV repair as well. 2. Thank you very much for the opportunity to participate in the cardiac care of your patient. Consultation time took place between 9 AM and 9:30 AM. Code Visit Inpatient E&M: 57558 Init Hosp L2
[2017-11-28 12:25] LABS: Bedside Glucose 151 mg/dL (70-110)
--- NOTE | 2017-11-28 12:33 | CASEMGMT ---
See RN CM Assessment link. DC Plan: home. no needs identified. Octaviano ESQUIVELN RN ACM
[2017-11-28] MEDS: hydrALAZINE 10 MG Tablet PO ×2 (14:54→21:38)
--- NOTE | 2017-11-28 14:56 | PN_ITS ---
Patient Problems: Active and Suspected Problems (Last Reviewed 11/05/17 @ 13:24 by Leticia Perrin) Acute kidney injury (Acute) Hyperkalemia (Acute) Subjective: He feels well. He denied of any chest pain, dyspnea, dizziness, or palpitations. - Physical Exam General: Alert, Oriented x3, Cooperative HEENT: Atraumatic, PERRLA, Normocephalic Oral: Moist Mucosa, No Gingival or Mucosal Lesions/ Ulcerations Neck: Supple, No JVD Lungs: Clear to auscultation, Normal air movement, No rhonchi, No wheeze, No rales Cardiovascular: Regular rate, Regular Rhythm, Normal S1, Normal S2, No Ectopic Activity, Murmur - 1/6 holosystolic murmur at apex. Abdomen: Bowel Sounds Present, Soft, Non Tender, Non-Distended, No Hepato- splenomegaly Extremities: No clubbing, No cyanosis, Edema - trace bilaterally. Skin: No rashes, No breakdown Musculoskeletal: No Tenderness to Palpation of Joints or Extremities, No Muscle Wasting Lymphatic: No Cervical, Supraclavicular, or Inguinal Adenopathy Neurological: Cranial nerves II-XII grossly intact, Neuro grossly intact Psych/Mental Status: Normal Affect Vital Signs Temp Pulse Resp BP Pulse Ox 97.6 F L 69 18 135/68 H 97 11/28/17 09:10 11/28/17 11:07 11/28/17 09:10 11/28/17 09:10 11/28/17 11:49 Oxygen Delivery Method Room Air Weight: 191 lb 2.252 oz Body Mass Index (BMI) 29.9 Intake and Output for Last 24 Hours 11/26/17 11/27/17 11/28/17 23:59 23:59 23:59 Intake Total 923 / 923 Balance 923 / 923 Laboratory Tests Past 24 Hrs 11/28/17 11/28/17 11/28/17 03:26 04:30 04:30 WBC 6.5 RBC 4.53 L Hgb 11.1 L Hct 34.2 L MCV 75.5 L MCH 24.5 L MCHC 32.5 RDW 15.4 H RDW Differential 42.4 Plt Count 111 L MPV 8.5 Sodium 139 Potassium 4.9 Chloride 108 H Carbon Dioxide 24.0 Anion Gap 7 BUN 62 H Creatinine 2.31 H Estim Creat Clear Calc 40.14 Est GFR (MDRD) Af Amer 41 L Est GFR (MDRD) Non-Af 34 L BUN/Creatinine Ratio 26.8 H Glucose 62 L Calcium 8.7 Magnesium 1.7 Ur Random Sodium 57 Urine Creatinine 53.60 POC Glucose 11/28/17 11/28/17 11/28/17 11:42 07:34 07:03 POC Glucose 151 H 80 52 L 11/28/17 06:47 POC Glucose 61 L Medical Necessity - Tobacco Use Smoking Status: Never smoker Tobacco Use: Non-smoker Assessment/Plan Active and Suspected Problems (Last Reviewed 11/05/17 @ 13:24 by Leticia Perrin) Acute kidney injury (Acute) Hyperkalemia (Acute) Patient is a 37 years old male with severe systolic dysfunction with ischemic cardiomyopathy and mitral valve regurgitation. He was called by PCP to come to ED for new finding of LEO. Creatinine was 2.49, where his baseline was 1.2. He was transferred to [facility] from this facility in 10/2017 for severe systolic function and severe mitral valve disease. #1 LEO. Admission creatinine 2.49, with baseline 1.2. He has been on ACEi, spironolactone, and Lasix. Hold for now. Continue gentle IVF hydration. Monitor BMP and clinical signs of CHF. He is doing better so far. #2 Severe systolic dysfunction with ischemic cardiomyopathy, chronic CHF. His weight was trending down at home, with trace edema. EF 25% per 2D-echocardiogram in October this year. He has Life Vest, pending ICD. 2D-echocardiogram was repeated. Result pending. Cardiology consultation appreciated. Plan to discontinue ACEi and spironolactone, plan to start low dose hydralazine for afterload reduction. Judicial use of diuretics. #3 Coronary artery disease. He has occluded proximal LAD with left to left and right to left collateral via septal perforators. #4 Pericardial effusion. Echo was done. Per cardiology, low threshold to send patient to a tertiary center if pericardial effusion is worse. #5 Mitral valve disease. #6 DM II. BS stable. Hold oral hypoglycemic agents, continue sliding scale insulin. #7 Hypokalemia. Kayexalate was given. K+ was 5.5, 4.9 this AM. Continue to monitor BMP. DVT prophylaxis: heparin SQ. GI prophylaxis: regular consistent meals. He is full code. Disposition: Home in 1 to 2 days. Code Visit Inpatient E&M: 08806 Subs Hosp L2
[2017-11-28 17:20] LABS: Bedside Glucose 113 mg/dL (70-110)
[2017-11-28] MEDS: Atorvastatin Calcium 40 MG Tablet PO (21:38)
[2017-11-28 22:00] LABS: Bedside Glucose 141 mg/dL (70-110)
[2017-11-29] VITALS (17 sets, daily range): BP systolic 120–148; BP diastolic 45–92; PULSE 68–89; RESP 16–18; TEMP 36.5–36.7; O2SAT 95–100
[2017-11-29] MEDS: 0.9% Normal Saline 1,000 ML 100 ML IV ×3 (01:34→22:13)
[2017-11-29] MEDS: hydrALAZINE 10 MG Tablet PO ×3 (05:37→22:12)
[2017-11-29 06:13] LABS: Hematocrit 30.9 % (40-54); Hemoglobin 10.2 g/dl (13.0-16.5); Mean Corpuscular Hgb 24.6 pg (27.0-32.0); Mean Corpuscular Volume 74.5 fL (80-94); Mean Platelet Vol. 9.3 fl (6.2-12.0); Platelet Count 118 K/mm3 (150-450); RBC Distribution Width CV 15.1 % (11.6-14.6); Red Blood Count 4.15 M/mm3 (4.6-6.2); White Blood Count 4.8 K/mm3 (4.4-11.0)
[2017-11-29 06:14] LABS: Scan Indicated on CBC? Y/N NO
[2017-11-29 06:19] LABS: Anion Gap 7 (5-15); BUN 37 mg/dL (7-18); BUN/Creat Ratio 21.4 RATIO (10-20); Calcium,Total 8.4 mg/dL (8.5-10.1); Chloride 113 mmol/L (98-107); Creatinine, Serum 1.73 mg/dL (0.70-1.30); EST Glomerular Filtration Rate 47 mL/min (>60); Est Glom Filt Rate - Afr Amer 57 mL/min (>60); Glucose 104 mg/dL (74-106); Potassium 4.5 mmol/L (3.5-5.1); Sodium Level 141 mmol/L (136-145)
[2017-11-29 07:01] LABS: Bedside Glucose 117 mg/dL (70-110)
[2017-11-29] MEDS: Aspirin E.C. 81 MG Tablet PO (08:28)
[2017-11-29] MEDS: Carvedilol 25 MG Tablet PO ×2 (08:28→22:12)
--- NOTE | 2017-11-29 09:55 | PN.CARD_ITS ---
Subjectve: Patient continues to improve. Blood pressure much better. Positive approximately 2 L. No orthopnea or PND. Objective: Vital Signs Temp Pulse Resp BP Pulse Ox 97.8 F 77 18 128/62 H 95 11/29/17 03:00 11/29/17 07:53 11/29/17 03:00 11/29/17 05:37 11/29/17 07:25 Oxygen Delivery Method Room Air Weight: 189 lb 2.506 oz Body Mass Index (BMI) 29.9 Intake and Output for Last 24 Hours 11/27/17 11/28/17 11/29/17 23:59 23:59 23:59 Intake Total 1813 1623 / 1623 Output Total 1999 Balance 1814 / 1814 -377 / -377 General: Awake, Alert, Oriented x 3 HEENT: PERRL, EOMI, Sclera Non Icteric Neck: Supple, Good ROM, No Lymph Node Enlargement Lungs: Clear to auscultation Cardiovascular: Regular Rhythm, Normal S1, Normal S2, No Rubs, No Gallops Murmur Murmur: Grade 2/6, Holosystolic Vascular: No Carotid Bruits, Normal Femoral Pulses, Normal Radial Pulses, Normal Dorsalis Pedal Pulse, Normal Posterior Tibial Pulses Abdomen: Bowel Sounds Present, Soft, Non Tender, No HSM, No Organomegaly Extremities: No Cyanosis, No Clubbing, No edema Neurological: No Focal Motor or Sensory Deficit 11/29/17 05:50: WBC 4.8, RBC 4.15 L, Hgb 10.2 L, Hct 30.9 L, MCV 74.5 L, MCH 24.6 L, MCHC 33.0, RDW 15.1 H, RDW Differential 40.0, Plt Count 118 L, MPV 9.3 11/29/17 05:50: Sodium 141, Potassium 4.5, Chloride 113 H, Carbon Dioxide 21.0, Anion Gap 7, BUN 37 H, Creatinine 1.73 H, Est GFR (MDRD) Af Amer 57 L, Est GFR ( MDRD) Non-Af 47 L, BUN/Creatinine Ratio 21.4 H, Glucose 104, Calcium 8.4 L Rhythm: EKG: ECHO: Stress Test: Cardiac Cath: PCI: CT Surgery: Holter monitor: EPS: PPM: CXR: Chest CT Scan: Medical Necessity - Tobacco Use Smoking Status: Never smoker Tobacco Use: Non-smoker Assessment/Plan 1. Ischemic cardiomyopathy: The patient presented about a month ago with congestive heart failure symptoms and was found to have severe ischemic cardiomyopathy with an EF around 25%. Catheterization demonstrated an occluded proximal LAD with left to left and right to left collaterals via the septal perforators. Patient was treated medically with Coreg, lisinopril, Aldactone and Lasix and now returns with acute on chronic renal insufficiency, dehydration , and hyperkalemia. Patient's creatinine is slowly improving, but would recommend holding his Aldactone and TEQUILA inhibitor going forward. Recommend starting him on Lasix 20 mg p.o daily, and continuing Coreg 25 mg p.o. twice daily. Patient had been on lisinopril before and recently had it increased. It appears he would not be a good Aldactone candidate going forward. Once he has been rehydrated and his renal insufficiency has improved as well as his potassium has normalized, I would recommend reintroduction of afterload reducing agents such as hydralazine 10 mg p.o. 3 times daily. I would avoid TEQUILA inhibitors at this time and would recommend using Coreg's alpha blocking properties for afterload reduction. Patient may continue Coreg therapy at this time. A larger question is whether or not the patient would benefit from revascularization therapy to his occluded LAD and/or mitral valve repair to assist with pulmonary hypertension. Apparently the patient was transferred to [facility] for heart transplant evaluation, and underwent an MRI to determine if he had scar versus viable myocardium. I do not have those records in our computer system, but reportedly Dr. Murphy reviewed the document which apparently showed nonischemic cardiomyopathy, suggesting that the patient has viability of the anterior wall. We will look to try and get this official document from [facility] when the office opens tomorrow. Patient may require a nuclear viability study such as a resting thallium to confirm if he has anterior wall viability. If he does have anterior wall viability I would recommend he undergo a transesophageal echocardiogram to evaluate his severity of his mitral regurgitation and tricuspid regurgitation, and if found to be severe that he be referred to a tertiary care center for mitral valve repair and single-vessel MACIAS to LAD, as well as pericardial drainage. Patient's repeat echocardiogram yesterday showed improvement of his LV function to around 35-40%, mild to moderate mitral regurgitation, trivial pericardial effusion which is improved over his previous echo, and RVSP of approximately 40 mmHg. This is an improvement over his previous echocardiogram with respect to his LV function and pericardial infusion. Given the patient's acute on chronic renal insufficiency and recent catheterization I would not recommend repeat catheterization or attempted chronic total occlusion percutaneous intervention unless the patient has significant viability and surgery is not an option. Patient may require a transesophageal echocardiogram to better evaluate his degree of mitral regurgitation, mechanics of mitral regurgitation to facilitate mitral valve repair, as well as to evaluate his tricuspid regurgitation to determine if he requires TV repair as well. In addition I recommended he continue his LifeVest and repeat his echocardiogram in 2 months time to determine if his LV function has continued to improved. 2. Thank you very much for the opportunity to participate in the cardiac care of your patient. Would recommend keeping the patient in the hospital until his creatinine has normalized, and a viability scan has been completed. Code Visit Inpatient E&M: 38717 Subs Hosp L2
--- NOTE | 2017-11-29 11:33 | PN_ITS ---
Patient Problems: Active and Suspected Problems (Last Reviewed 11/05/17 @ 13:24 by Leticia Perrin) Acute kidney injury (Acute) Hyperkalemia (Acute) Subjective: He feels well, denied of any chest pain, dyspnea, cough, or chest congestion. Trace edema, unchanged. Creatinine improved to 1.73. - Physical Exam General: Alert, Oriented x3, Cooperative HEENT: Atraumatic, PERRLA, Normocephalic Oral: Moist Mucosa, No Gingival or Mucosal Lesions/ Ulcerations Neck: Supple, No JVD Lungs: Clear to auscultation, Normal air movement, No rhonchi, No wheeze, No rales Cardiovascular: Regular rate, Regular Rhythm, Normal S1, Normal S2, No Ectopic Activity, Murmur - 1/6 holosystolic murmur at apex. Abdomen: Bowel Sounds Present, Soft, Non Tender, Non-Distended, No Hepato- splenomegaly Extremities: No clubbing, No cyanosis, Edema - trace bilaterally. Skin: No rashes, No breakdown Musculoskeletal: No Tenderness to Palpation of Joints or Extremities, No Muscle Wasting Lymphatic: No Cervical, Supraclavicular, or Inguinal Adenopathy Neurological: Cranial nerves II-XII grossly intact, Neuro grossly intact Psych/Mental Status: Normal Affect - Physical Exam Vital Signs Temp Pulse Resp BP Pulse Ox 97.7 F L 69 16 120/45 L 99 11/29/17 09:00 11/29/17 10:00 11/29/17 09:00 11/29/17 09:00 11/29/17 09:00 Oxygen Delivery Method Room Air Weight: 189 lb 2.506 oz Body Mass Index (BMI) 29.9 Intake and Output for Last 24 Hours 11/27/17 11/28/17 11/29/17 23:59 23:59 23:59 Intake Total 1814 / 1814 1623 / 1623 Output Total 1999 Balance 1814 / 1814 -377 / -377 Laboratory Tests Past 24 Hrs 11/29/17 11/29/17 05:50 05:50 WBC 4.8 RBC 4.15 L Hgb 10.2 L Hct 30.9 L MCV 74.5 L MCH 24.6 L MCHC 33.0 RDW 15.1 H RDW Differential 40.0 Plt Count 118 L MPV 9.3 Sodium 141 Potassium 4.5 Chloride 113 H Carbon Dioxide 21.0 Anion Gap 7 BUN 37 H Creatinine 1.73 H Estim Creat Clear Calc 53.60 Est GFR (MDRD) Af Amer 57 L Est GFR (MDRD) Non-Af 47 L BUN/Creatinine Ratio 21.4 H Glucose 104 Calcium 8.4 L POC Glucose 11/29/17 11/28/17 11/28/17 06:48 21:37 17:08 POC Glucose 117 H 141 H 113 H 11/28/17 11:42 POC Glucose 151 H Medical Necessity - Tobacco Use Smoking Status: Never smoker Tobacco Use: Non-smoker Assessment/Plan Active and Suspected Problems (Last Reviewed 11/05/17 @ 13:24 by Leticia Perrin) Acute kidney injury (Acute) Hyperkalemia (Acute) Patient is a 37 years old male with severe systolic dysfunction with ischemic cardiomyopathy and mitral valve regurgitation. He was called by PCP to come to ED for new finding of LEO. Creatinine was 2.49, where his baseline was 1.2. He was transferred to [facility] from this facility in 10/2017 for severe systolic function and severe mitral valve disease. #1 LEO. Admission creatinine 2.49, with baseline 1.2. Improving slowly. He has been on ACEi, spironolactone, and Lasix. They are on hold. Cardiology is recommending to D/C ACEi and spironolactone; plan to continue Coreg 25 mg po bid and start Lasix 20 mg daily after rehydration, and start hydralazine 10 mg po tid as tolerated. Continue gentle IVF hydration for now. With his severe systolic dysfunction, he should be monitored closely during IVF treatment. Monitor BMP and clinical signs of CHF. He is doing better so far. Plan for renal u/s tomorrow. #2 Severe systolic dysfunction with ischemic cardiomyopathy, chronic CHF. His weight was trending down at home, with trace edema. EF 25% per 2D-echocardiogram in October this year. He has Life Vest, pending AICD. Cardiology consultation appreciated. Plan to discontinue ACEi and spironolactone, hydralazine 10 mg po tid was started for afterload reduction; plan to start low dose Lasix 20 mg po qd. 2D-echocardiogram was repeated, results as following: Mildly dilated left ventricle. The estimated ejection fraction is 35-40 %. Normal diastology for age. There is moderate global hypokinesis of the left ventricle. Mildly dilated right ventricle. The left atrium is moderately enlarged. Mild-Moderate (1-2+) mitral valve insufficiency. Mild (1+) tricuspid valve insufficiency. Right ventricular systolic pressure estimated to be 40 mmHg. Trivial pericardial effusion. There are no echocardiographic indications of cardiac tamponade. Compared to echo report dated 10/26/2017, LV function has improved from 25% to 40 %; RVSP has remained the same. MR has improved as well. #3 Coronary artery disease. He has occluded proximal LAD with left to left and right to left collateral via septal perforators. #4 Pericardial effusion. Echo was done. Per cardiology, low threshold to send patient to a tertiary center if pericardial effusion is worse. Fortunately, Echo showed trivial effusion only. #5 Mitral valve disease. #6 DM II. BS stable. Hold oral hypoglycemic agents, continue sliding scale insulin. #7 Hypokalemia. Kayexalate was given. K+ was 5.5, 4.4 this AM. Continue to monitor BMP. DVT prophylaxis: heparin SQ. GI prophylaxis: regular consistent meals. He is full code. Disposition: Home in 1 to 2 days. Code Visit Inpatient E&M: [id number] [facility] Hosp L3
[2017-11-29 12:06] LABS: Bedside Glucose 179 mg/dL (70-110)
[2017-11-29 16:30] LABS: Bedside Glucose 85 mg/dL (70-110)
[2017-11-29] MEDS: Atorvastatin Calcium 40 MG Tablet PO (22:13)
[2017-11-29 22:40] LABS: Bedside Glucose 75 mg/dL (70-110)
[2017-11-30] VITALS (14 sets, daily range): BP systolic 131–147; BP diastolic 70–76; PULSE 70–84; RESP 16–18; TEMP 36.7–36.9; O2SAT 97–98
[2017-11-30] MEDS: hydrALAZINE 10 MG Tablet PO ×3 (06:05→21:53)
[2017-11-30 06:20] LABS: Hematocrit 31.4 % (40-54); Hemoglobin 10.1 g/dl (13.0-16.5); Mean Corp Hgb Conc 32.2 g/gl (32-36); Mean Corpuscular Hgb 24.2 pg (27.0-32.0); Mean Corpuscular Volume 75.1 fL (80-94); Mean Platelet Vol. 8.6 fl (6.2-12.0); Platelet Count 102 K/mm3 (150-450); RBC Distribution Width CV 15.4 % (11.6-14.6); RBC Distribution Width SD 41.6 fl (35.1-43.9); Red Blood Count 4.18 M/mm3 (4.6-6.2); White Blood Count 4.9 K/mm3 (4.4-11.0)
[2017-11-30 06:39] LABS: Anion Gap 7 (5-15); BUN 26 mg/dL (7-18); BUN/Creat Ratio 16.1 RATIO (10-20); Calcium,Total 8.5 mg/dL (8.5-10.1); Chloride 112 mmol/L (98-107); Creatinine, Serum 1.61 mg/dL (0.70-1.30); EST Glomerular Filtration Rate 51 mL/min (>60); Est Glom Filt Rate - Afr Amer 62 mL/min (>60); Estimated Creatinine Clearance 57.59 ml/min; Glucose 86 mg/dL (74-106); Potassium 4.9 mmol/L (3.5-5.1); Sodium Level 142 mmol/L (136-145)
[2017-11-30 06:40] LABS: Scan Indicated on CBC? Y/N NO
[2017-11-30 07:00] LABS: Bedside Glucose 88 mg/dL (70-110)
--- NOTE | 2017-11-30 08:00 | US_ITS ---
STUDY: RENAL ULTRASOUND - COMPLETE REASON FOR EXAM: Male, 37 years old. Acute renal failure. TECHNIQUE: Ultrasound evaluation of the kidneys was performed with real-time and static martel-scale imaging. COMPARISON: None. FINDINGS: RIGHT KIDNEY: Normal location of the right kidney, which is normal in size. The right kidney measures 14.0 cm x 5.1 cm x 6.0 cm. There is a normal cortex of the right kidney. The renal cortex measures 2.1 cm. There is no right renal mass or cyst. There are no right renal calculi. There is no right hydronephrosis. DISTAL RIGHT URETER: There is non-visualization of the distal right ureter. There is no demonstrated right ureterovesical junction calculus. There is no demonstrated right ureteral jet. LEFT KIDNEY: Normal location of the left kidney, which is normal in size. The left kidney measures 13.3 cm x 6.0 cm x 6.7 cm. There is a normal cortex of the left kidney. The renal cortex measures 2.0 cm. There is no left renal mass or cyst. There are no left renal calculi. There is no left hydronephrosis. DISTAL LEFT URETER: There is non-visualization of the distal left ureter. There is no demonstrated left ureterovesical junction calculus. There is no demonstrated left ureteral jet. BLADDER: The distended urinary bladder has a volume of 165 ml. There is a normal wall thickness of the distended urinary bladder. There is no demonstrated mass within the urinary bladder. There are no demonstrated bladder calculi. US/Kidney and Bladder IMPRESSION: Normal ultrasound of the kidneys and urinary bladder. Electronically Signed: Lai Kaur MD at 13:46 EDT Tel [phone], Service support ,
--- NOTE | 2017-11-30 08:07 | PN_ITS ---
Patient Problems: Active and Suspected Problems (Last Reviewed 11/05/17 @ 13:24 by Leticia Perrin) Acute kidney injury (Acute) Hyperkalemia (Acute) Subjective: Chief complaint: Follow-up after admission for acute kidney injury and hyperkalemia. Patient seen and examined. No acute events overnight. He denies any significant complaints. Vital signs are stable. - Physical Exam General: Alert, Oriented x3, Cooperative, No apparent distress HEENT: Atraumatic, PERRLA, EOMI Oral: Moist Mucosa, No Gingival or Mucosal Lesions/ Ulcerations Neck: Supple, No JVD, Negative Carotid Bruits, Trachea Midline, Thyroid Normal Size and Texture Lungs: Clear to auscultation, No rhonchi, No wheeze, No rales, Diminished Cardiovascular: Regular rate, Regular Rhythm, Normal S1, Normal S2, PMI Normal Abdomen: Bowel Sounds Present, Soft, Non Tender, Non-Distended, No Hepato- splenomegaly Extremities: No clubbing, No cyanosis, No edema Skin: No rashes, No breakdown Lymphatic: No Cervical, Supraclavicular, or Inguinal Adenopathy Neurological: Cranial nerves II-XII grossly intact, Motor Exam 5/5 strength throughout Psych/Mental Status: Normal Affect, Appropriate, Alert and oriented to time, place, person, mood and affect Vital Signs Temp Pulse Resp BP Pulse Ox 98.4 F 82 16 134/73 H 97 11/30/17 04:00 11/30/17 06:51 11/30/17 04:00 11/30/17 06:05 11/30/17 04:00 Oxygen Delivery Method Room Air Weight: 188 lb 4.396 oz Body Mass Index (BMI) 29.9 Intake and Output for Last 24 Hours 11/28/17 11/29/17 11/30/17 23:59 23:59 23:59 Intake Total 1814 / 1814 3434 / 3434 1434 / 1434 Output Total 3175 / 3175 1800 / 1800 Balance 1814 / 1814 259 / 259 -366 / -366 Laboratory Tests Past 24 Hrs 11/30/17 11/30/17 05:44 05:44 WBC 4.9 RBC 4.18 L Hgb 10.1 L Hct 31.4 L MCV 75.1 L MCH 24.2 L MCHC 32.2 RDW 15.4 H RDW Differential 41.6 Plt Count 102 L MPV 8.6 Sodium 142 Potassium 4.9 Chloride 112 H Carbon Dioxide 23.0 Anion Gap 7 BUN 26 H Creatinine 1.61 H Estim Creat Clear Calc 57.59 Est GFR (MDRD) Af Amer 62 Est GFR (MDRD) Non-Af 51 L BUN/Creatinine Ratio 16.1 Glucose 86 Calcium 8.5 POC Glucose 11/30/17 11/29/17 11/29/17 06:44 22:07 16:27 POC Glucose 88 75 85 11/29/17 11:49 POC Glucose 179 H Medical Necessity - Tobacco Use Smoking Status: Never smoker Tobacco Use: Non-smoker Assessment/Plan Active and Suspected Problems (Last Reviewed 11/05/17 @ 13:24 by Leticia Perrin) Acute kidney injury (Acute) Hyperkalemia (Acute) This is a 37 years old male patient presented to the emergency room because of abnormal labs according to his PCP and he was admitted for acute kidney injury and hyperkalemia. #1 acute kidney injury: This is attributed to nephrotoxic medications including Lasix, lisinopril, metformin and Aldactone. Admission creatinine was 2.49, baseline creatinine is normal. Today's creatinine is 1.61, improving slowly. Nephrotoxic medications are held. Plan to continue IV fluids, repeat BMP tomorrow morning, possible DC home tomorrow. #2 hyperkalemia: Secondary to Aldactone and lisinopril. Admission potassium was 5.5. No EKG changes due to hyperkalemia. Today's potassium is 4.9. Plan as above. #3 ischemic cardiomyopathy/chronic systolic CHF: Echocardiogram from September, revealed ejection fraction of 25%. Patient is on LifeVest. He is on aspirin, statins, beta blockers. Cardiology on the case. At this time, he is euvolemic status, clinically well compensated. Plan is to start him back on Lasix after rehydration, continue Coreg as of now and no more Aldactone or TEQUILA inhibitors. #4 valvular heart disease: On echocardiogram that was done on October,, it showed severe mitral valve insufficiency, moderate tricuspid insufficiency, trivial pulmonic valve insufficiency and small to moderate pleural effusion without evidence of cardiac tamponade. Stable at this time. #5 type 2 diabetes mellitus: Blood sugar stable, continue ADA diet, Accu-Cheks, insulin sliding scale, keep holding glimepiride and metformin. #6 chronic iron deficiency anemia: Chronic. Baseline hemoglobin is around 10- 11 g/dL. He did have iron studies in the past and his iron level was low. Start iron supplement. #7 DVT prophylaxis: Subcu heparin. This note was generated with [employer] dictation software. It may contain incorrect words, spelling, and punctuation that were not noted in checking the note before signing. Code Visit Inpatient E&M: 16367 Subs Hosp L2
[2017-11-30] MEDS: 0.9% Normal Saline 1,000 ML 100 ML IV ×2 (08:15→18:12)
[2017-11-30] MEDS: Aspirin E.C. 81 MG Tablet PO (08:15)
[2017-11-30] MEDS: Carvedilol 25 MG Tablet PO ×2 (09:36→21:53)
[2017-11-30 11:21] LABS: Bedside Glucose 211 mg/dL (70-110)
[2017-11-30 16:40] LABS: Bedside Glucose 96 mg/dL (70-110)
[2017-11-30] MEDS: Atorvastatin Calcium 40 MG Tablet PO (21:53)
[2017-11-30 22:11] LABS: Bedside Glucose 114 mg/dL (70-110)
[2017-12-01] VITALS (16 sets, daily range): BP systolic 135–148; BP diastolic 64–78; PULSE 59–93; RESP 16–18; TEMP 36.4–36.9; O2SAT 96–100
[2017-12-01] MEDS: 0.9% Normal Saline 1,000 ML 100 ML IV ×2 (03:45→13:57)
[2017-12-01] MEDS: hydrALAZINE 10 MG Tablet PO ×3 (05:13→21:26)
--- NOTE | 2017-12-01 05:43 | NURSING ---
This RN reviewed charting completed by licensed nursing assistant Sascha Moreland and agrees with completed charting.
[2017-12-01 06:24] LABS: Hematocrit 30.5 % (40-54); Mean Corp Hgb Conc 32.8 g/gl (32-36); Mean Corpuscular Hgb 24.3 pg (27.0-32.0); Mean Corpuscular Volume 74.2 fL (80-94); Mean Platelet Vol. 8.3 fl (6.2-12.0); Platelet Count 95 K/mm3 (150-450); RBC Distribution Width CV 15.4 % (11.6-14.6); RBC Distribution Width SD 41.3 fl (35.1-43.9); Red Blood Count 4.11 M/mm3 (4.6-6.2); White Blood Count 4.9 K/mm3 (4.4-11.0)
[2017-12-01 06:25] LABS: Scan Indicated on CBC? Y/N NO
[2017-12-01 06:51] LABS: Bedside Glucose 153 mg/dL (70-110)
[2017-12-01 07:02] LABS: Anion Gap 6 (5-15); BUN 21 mg/dL (7-18); BUN/Creat Ratio 13.6 RATIO (10-20); Calcium,Total 8.2 mg/dL (8.5-10.1); Chloride 115 mmol/L (98-107); Creatinine, Serum 1.54 mg/dL (0.70-1.30); EST Glomerular Filtration Rate 54 mL/min (>60); Est Glom Filt Rate - Afr Amer 65 mL/min (>60); Estimated Creatinine Clearance 60.21 ml/min; Glucose 129 mg/dL (74-106); Potassium 4.3 mmol/L (3.5-5.1); Sodium Level 143 mmol/L (136-145)
[2017-12-01] MEDS: Carvedilol 25 MG Tablet PO ×2 (08:09→21:26)
[2017-12-01] MEDS: Aspirin E.C. 81 MG Tablet PO (08:09)
--- NOTE | 2017-12-01 10:28 | PCM.PROGNOTE ---
Patient Problems: Active and Suspected Problems (Last Reviewed 11/05/17 @ 13:24 by Leticia Perrin) Acute kidney injury (Acute) Hyperkalemia (Acute) Subjective: Chief complaint: Follow-up after admission for acute kidney injury and hyperkalemia. Patient seen and examined. No acute events overnight. He remained asymptomatic, no significant complaints. Vital signs are stable. - Physical Exam General: Alert, Oriented x3, Cooperative, No apparent distress HEENT: Atraumatic, PERRLA Oral: Moist Mucosa, No Gingival or Mucosal Lesions/ Ulcerations Neck: Supple, No JVD, Negative Carotid Bruits, Trachea Midline, Thyroid Normal Size and Texture Lungs: Clear to auscultation, No rhonchi, No wheeze, No rales, Diminished Cardiovascular: Regular rate, Regular Rhythm, Normal S1, Normal S2, No murmurs, PMI Normal Abdomen: Bowel Sounds Present, Soft, Non Tender, Non-Distended, No Hepato-splenomegaly Extremities: No clubbing, No cyanosis, No edema Skin: No rashes, No breakdown Neurological: Cranial nerves II-XII grossly intact, Neuro grossly intact Psych/Mental Status: Normal Affect, Appropriate Vital Signs Temp Pulse Resp BP Pulse Ox 97.9 F 59 L 18 143/68 H 99 12/01/17 08:00 12/01/17 08:00 12/01/17 08:00 12/01/17 08:00 12/01/17 08:00 Oxygen Delivery Method Room Air Weight: 192 lb 14.472 oz Body Mass Index (BMI) 29.9 Intake and Output for Last 24 Hours 11/29/17 11/30/17 12/01/17 23:59 23:59 23:59 Intake Total 3434 / 3434 3541 / 3541 1853 / 1853 Output Total 3175 / 3175 4000 / 4000 1575 / 1575 Balance 259 / 259 -459 / -459 278 / 278 Laboratory Tests Past 24 Hrs 12/01/17 12/01/17 06:10 06:10 WBC 4.9 RBC 4.11 L Hgb 10.0 L Hct 30.5 L MCV 74.2 L MCH 24.3 L MCHC 32.8 RDW 15.4 H RDW Differential 41.3 Plt Count 95 L MPV 8.3 Sodium 143 Potassium 4.3 Chloride 115 H Carbon Dioxide 22.0 Anion Gap 6 BUN 21 H Creatinine 1.54 H Estim Creat Clear Calc 60.21 Est GFR (MDRD) Af Amer 65 Est GFR (MDRD) Non-Af 54 L BUN/Creatinine Ratio 13.6 Glucose 129 H Calcium 8.2 L POC Glucose 12/01/17 11/30/17 11/30/17 06:48 21:52 16:34 POC Glucose 153 H 114 H 96 11/30/17 11:16 POC Glucose 211 H Medical Necessity - Tobacco Use Smoking Status: Never smoker Tobacco Use: Non-smoker Assessment/Plan Active and Suspected Problems (Last Reviewed 11/05/17 @ 13:24 by Leticia Perrin) Acute kidney injury (Acute) Hyperkalemia (Acute) This is a 37 years old male patient presented to the emergency room because of abnormal labs according to his PCP and he was admitted for acute kidney injury and hyperkalemia. #1 acute kidney injury: Remained on IV fluids, serum BUN and creatinine are slowly improving, creatinine is down to 1.54. This is attributed to nephrotoxic medications including Lasix, lisinopril, metformin and Aldactone. Admission creatinine was 2.49, baseline creatinine is normal. Nephrotoxic medications are held. Plan to continue IV fluids, repeat BMP tomorrow morning. #2 hyperkalemia: Secondary to Aldactone and lisinopril. Admission potassium was 5.5. No EKG changes due to hyperkalemia. Today's potassium is 4.3. Plan as above. #3 ischemic cardiomyopathy/chronic systolic CHF: Echocardiogram from September, revealed ejection fraction of 25%. Patient is on LifeVest. He is on aspirin, statins, beta blockers. Cardiology on the case. At this time, he is euvolemic status, clinically well compensated. Plan is to start him back on Lasix after rehydration, continue Coreg as of now and no more Aldactone or TEQUILA inhibitors. #4 valvular heart disease: On echocardiogram that was done on October,, it showed severe mitral valve insufficiency, moderate tricuspid insufficiency, trivial pulmonic valve insufficiency and small to moderate pleural effusion without evidence of cardiac tamponade. Stable at this time. #5 type 2 diabetes mellitus: Blood sugar stable, continue ADA diet, Accu-Cheks, insulin sliding scale, keep holding glimepiride and metformin. #6 chronic iron deficiency anemia: Chronic. Baseline hemoglobin is around 10-11 g/dL. He did have iron studies in the past and his iron level was low. Start iron supplement. #7 DVT prophylaxis: Subcu heparin. This note was generated with [employer] dictation software. It may contain incorrect words, spelling, and punctuation that were not noted in checking the note before signing. Code Visit Inpatient E&M: 21714 Subs Hosp L2
--- NOTE | 2017-12-01 10:32 | PN_ITS ---
Patient Problems: Active and Suspected Problems (Last Reviewed 11/05/17 @ 13:24 by Leticia Perrin) Acute kidney injury (Acute) Hyperkalemia (Acute) Subjective: Chief complaint: Follow-up after admission for acute kidney injury and hyperkalemia. Patient seen and examined. No acute events overnight. He remained asymptomatic , no significant complaints. Vital signs are stable. - Physical Exam General: Alert, Oriented x3, Cooperative, No apparent distress HEENT: Atraumatic, PERRLA Oral: Moist Mucosa, No Gingival or Mucosal Lesions/ Ulcerations Neck: Supple, No JVD, Negative Carotid Bruits, Trachea Midline, Thyroid Normal Size and Texture Lungs: Clear to auscultation, No rhonchi, No wheeze, No rales, Diminished Cardiovascular: Regular rate, Regular Rhythm, Normal S1, Normal S2, No murmurs, PMI Normal Abdomen: Bowel Sounds Present, Soft, Non Tender, Non-Distended, No Hepato- splenomegaly Extremities: No clubbing, No cyanosis, No edema Skin: No rashes, No breakdown Neurological: Cranial nerves II-XII grossly intact, Neuro grossly intact Psych/Mental Status: Normal Affect, Appropriate Vital Signs Temp Pulse Resp BP Pulse Ox 97.9 F 59 L 18 143/68 H 99 12/01/17 08:00 12/01/17 08:00 12/01/17 08:00 12/01/17 08:00 12/01/17 08:00 Oxygen Delivery Method Room Air Weight: 192 lb 14.472 oz Body Mass Index (BMI) 29.9 Intake and Output for Last 24 Hours 11/29/17 11/30/17 12/01/17 23:59 23:59 23:59 Intake Total 3434 / 3434 3541 / 3541 1853 / 1853 Output Total 3175 / 3175 4000 / 4000 1575 / 1575 Balance 259 / 259 -459 / -459 278 / 278 Laboratory Tests Past 24 Hrs 12/01/17 12/01/17 06:10 06:10 WBC 4.9 RBC 4.11 L Hgb 10.0 L Hct 30.5 L MCV 74.2 L MCH 24.3 L MCHC 32.8 RDW 15.4 H RDW Differential 41.3 Plt Count 95 L MPV 8.3 Sodium 143 Potassium 4.3 Chloride 115 H Carbon Dioxide 22.0 Anion Gap 6 BUN 21 H Creatinine 1.54 H Estim Creat Clear Calc 60.21 Est GFR (MDRD) Af Amer 65 Est GFR (MDRD) Non-Af 54 L BUN/Creatinine Ratio 13.6 Glucose 129 H Calcium 8.2 L POC Glucose 12/01/17 11/30/17 11/30/17 06:48 21:52 16:34 POC Glucose 153 H 114 H 96 11/30/17 11:16 POC Glucose 211 H Medical Necessity - Tobacco Use Smoking Status: Never smoker Tobacco Use: Non-smoker Assessment/Plan Active and Suspected Problems (Last Reviewed 11/05/17 @ 13:24 by Leticia Perrin) Acute kidney injury (Acute) Hyperkalemia (Acute) This is a 37 years old male patient presented to the emergency room because of abnormal labs according to his PCP and he was admitted for acute kidney injury and hyperkalemia. #1 acute kidney injury: Remained on IV fluids, serum BUN and creatinine are slowly improving, creatinine is down to 1.54. This is attributed to nephrotoxic medications including Lasix, lisinopril, metformin and Aldactone. Admission creatinine was 2.49, baseline creatinine is normal. Nephrotoxic medications are held. Plan to continue IV fluids, repeat BMP tomorrow morning. #2 hyperkalemia: Secondary to Aldactone and lisinopril. Admission potassium was 5.5. No EKG changes due to hyperkalemia. Today's potassium is 4.3. Plan as above. #3 ischemic cardiomyopathy/chronic systolic CHF: Echocardiogram from September, revealed ejection fraction of 25%. Patient is on LifeVest. He is on aspirin, statins, beta blockers. Cardiology on the case. At this time, he is euvolemic status, clinically well compensated. Plan is to start him back on Lasix after rehydration, continue Coreg as of now and no more Aldactone or TEQUILA inhibitors. #4 valvular heart disease: On echocardiogram that was done on October,, it showed severe mitral valve insufficiency, moderate tricuspid insufficiency, trivial pulmonic valve insufficiency and small to moderate pleural effusion without evidence of cardiac tamponade. Stable at this time. #5 type 2 diabetes mellitus: Blood sugar stable, continue ADA diet, Accu-Cheks, insulin sliding scale, keep holding glimepiride and metformin. #6 chronic iron deficiency anemia: Chronic. Baseline hemoglobin is around 10- 11 g/dL. He did have iron studies in the past and his iron level was low. Start iron supplement. #7 DVT prophylaxis: Subcu heparin. This note was generated with [employer] dictation software. It may contain incorrect words, spelling, and punctuation that were not noted in checking the note before signing. Code Visit Inpatient E&M: 57025 Subs Hosp L2
[2017-12-01 11:01] LABS: Bedside Glucose 139 mg/dL (70-110)
[2017-12-01 16:15] LABS: Bedside Glucose 98 mg/dL (70-110)
[2017-12-01] MEDS: Ferrous Sulfate 325 MG Tablet PO (17:12)
[2017-12-01] MEDS: Atorvastatin Calcium 40 MG Tablet PO (21:26)
[2017-12-01 22:05] LABS: Bedside Glucose 103 mg/dL (70-110)
[2017-12-02] VITALS (8 sets, daily range): BP systolic 122–149; BP diastolic 58–64; PULSE 74–93; RESP 16; TEMP 36.7–37; O2SAT 96–98
[2017-12-02] MEDS: 0.9% Normal Saline 1,000 ML 100 ML IV (00:09)
[2017-12-02] MEDS: hydrALAZINE 10 MG Tablet PO (05:26)
[2017-12-02 06:51] LABS: Bedside Glucose 108 mg/dL (70-110)
[2017-12-02 07:10] LABS: Anion Gap 6 (5-15); BUN 19 mg/dL (7-18); BUN/Creat Ratio 12.3 RATIO (10-20); Calcium,Total 8.2 mg/dL (8.5-10.1); Chloride 116 mmol/L (98-107); Creatinine, Serum 1.55 mg/dL (0.70-1.30); EST Glomerular Filtration Rate 53 mL/min (>60); Est Glom Filt Rate - Afr Amer 64 mL/min (>60); Estimated Creatinine Clearance 59.82 ml/min; Glucose 104 mg/dL (74-106); Potassium 4.3 mmol/L (3.5-5.1); Sodium Level 145 mmol/L (136-145)
--- NOTE | 2017-12-02 08:32 | DCINST_ITS ---
- Discharge Diagnoses Current Active Problems: Current Active and Chronic Problems (Last Reviewed 11/05/17 @ 13:24 by Leticia Perrin) Acute kidney injury (Acute) Hyperkalemia (Acute) Systolic CHF (Chronic) You will use the following diet at home:: Calorie/Carbohydrate Controlled ( specify 1200, 1400, etc) - 1800 david, Cardiac Your food should be the consistency of: Regular Discharge Activity: Return to Normal Activity Weight Bearing Status: Weight bearing as tolerated Call your doctor if you observe: Fever of 101 or Higher, Shortness of breath, Dizziness, Fainting spells, Swelling in the ankles, Chest pain, Increased palpitations (irregular heartbeat), Uncontrolled pain Allergies/Adverse Reactions: Allergies No Known Allergies Allergy (Verified 11/28/17 01:13) Medications to take at Discharge aspirin 81 mg tablet,delayed release 81 mg PO QDAY tab 11/04/17 atorvastatin 40 mg tablet 40 mg PO QDAY 11/04/17 carvedilol 25 mg tablet 25 mg PO BID 11/04/17 furosemide 20 mg tablet 20 mg PO DAILY tab 11/04/17 multivitamin tablet 1 tab PO QDAY 11/04/17 ascorbic acid (vitamin C) 500 mg capsule 500 mg PO DAILY ea 11/05/17 Ferrous Sulfate 325 mg PO BIDCM #90 tab 12/02/17 Glimepiride [Amaryl] 8 mg PO DAILY #30 tab 12/02/17 hydrALAZINE [Apresoline] 10 mg PO TID #90 tab 12/02/17 The following prescriptions were given: Glimepiride [Amaryl] 8 mg PO DAILY #30 tab Ferrous Sulfate 325 mg PO BIDCM #90 tab hydrALAZINE [Apresoline] 10 mg PO TID #90 tab Primary Care Physician: Vicente Jang MD [Primary Care Provider] - Please follow up with your Primary Care Physician in: 1 week. Please Follow Up With: Juan A Bermeo MD When: please call his office.
[2017-12-02] MEDS: Aspirin E.C. 81 MG Tablet PO (10:01)
[2017-12-02] MEDS: Carvedilol 25 MG Tablet PO (10:02)
[2017-12-02] MEDS: Ferrous Sulfate 325 MG Tablet PO (10:02)
--- NOTE | 2017-12-02 15:43 | PCM.DC.SUM ---
Discharge Date and Diagnosis Date of Admission: 11/28/17 Date of Discharge: 12/02/17 - Primary Discharge Diagnosis #1 acute kidney injury. #2 hyperkalemia. 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 Electronically Signed: Lai Kaur MD at 13:46 EDT Tel [phone], Service support , Dr. Bermeo, cardiology. Operations: None Procedures: 2-D Echocardiogram, EKG Summary of Care Provided: Patient seen and examined on the day of discharge and appeared to be stable to be discharged home. He remained asymptomatic, no complaints. Vital signs are stable. - Physical Exam General: Alert, Oriented x3, Cooperative, No apparent distress. HEENT: Atraumatic, PERRLA, EOMI. Neck: Supple, No JVD, Negative Carotid Bruits, Trachea Midline, Thyroid Normal. Lungs: Clear to auscultation, Normal air movement, No rhonchi, No wheeze, No rales. Cardiovascular: Regular rate, Regular Rhythm, Normal S1, Normal S2, PMI Normal. Abdomen: Bowel Sounds Present, Soft, Non Tender, Non-Distended, No Hepato-splenomegaly. Extremities: No clubbing, No cyanosis, No edema Skin: No rashes, No breakdown Neurological: Neuro grossly intact Vital Signs are stable. Hospital course: The patient is a 37 year old M because of abnormal labs and he was sent from his PCPs office and was admitted for acute kidney injury and hyperkalemia. Patient had a recent history of ischemic cardiomyopathy and he was started on Lasix, lisinopril and Aldactone. On admission, his creatinine was 2.49 and his baseline creatinine has been normal. Potassium was 5.5 without acute EKG changes. Patient was treated with IV fluids and those nephrotoxic medications were discontinued. His kidney function did improve very slowly and this is likely because of his ischemic cardiomyopathy and low ejection fraction., His potassium returned back to normal. Ultrasound of both kidneys performed and was normal without evidence of obstructive uropathy, no hydronephrosis, no kidney stones and no hydroureter. 2D echocardiogram revealed ejection fraction of 35-40%. There was no evidence of acute CHF. Patient kidney function did improve. His discharge creatinine was 1.55. Patient discharged home in a stable medical condition, Aldactone and metformin discontinued, dose of glimepiride increased to 8 mg p.o. daily, patient started back on small dose of Lasix at 20 mg p.o. daily according to cardiology, started on hydralazine 10 mg p.o. 3 times daily, order given to repeat BMP in 1 week and follow-up with PCP in 1 week and with cardiology as well. Discharge Activity: Return to Normal Activity Weight Bearing Status: Weight bearing as tolerated Call your doctor if you observe: Fever of 101 or Higher, Shortness of breath, Dizziness, Fainting spells, Swelling in the ankles, Chest pain, Increased palpitations (irregular heartbeat), Uncontrolled pain Home Medications: Medications to take at Discharge aspirin 81 mg tablet,delayed release 81 mg PO QDAY tab 11/04/17 atorvastatin 40 mg tablet 40 mg PO QDAY 11/04/17 carvedilol 25 mg tablet 25 mg PO BID 11/04/17 furosemide 20 mg tablet 20 mg PO DAILY tab 11/04/17 multivitamin tablet 1 tab PO QDAY 11/04/17 ascorbic acid (vitamin C) 500 mg capsule 500 mg PO DAILY ea 11/05/17 Ferrous Sulfate 325 mg PO BIDCM #90 tab 12/02/17 Glimepiride [Amaryl] 8 mg PO DAILY #30 tab 12/02/17 hydrALAZINE [Apresoline] 10 mg PO TID #90 tab 12/02/17 Following Prescrptions Were Given to Patient: Glimepiride [Amaryl] 8 mg PO DAILY #30 tab Ferrous Sulfate 325 mg PO BIDCM #90 tab hydrALAZINE [Apresoline] 10 mg PO TID #90 tab Primary Care Physician: Vicente Jang MD [Primary Care Provider] - Please follow up with your Primary Care Physician in: 1 week. Please Follow Up With: Ephraim Vallecillo NP-C When: please call his office. Please Follow Up With: Vicente Jang MD Disposition: Home Minutes spent on discharge:: 32 Patient Condition:: Stable Medical Necessity - Tobacco Use Smoking Status: Never smoker Tobacco Use: Non-smoker Meaningful Use Info Meaningful Use Diagnoses (Choose all that apply): None applicable Code Visit Inpatient E&M: 34497 Disch Hosp
--- NOTE | 2017-12-02 15:49 | DS.PCM_ITS ---
Discharge Date and Diagnosis Date of Admission: 11/28/17 Date of Discharge: 12/02/17 - Primary Discharge Diagnosis #1 acute kidney injury. #2 hyperkalemia. 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 Electronically Signed: Lai Kaur MD at 13:46 EDT Tel [phone], Service support , Dr. Bermeo, cardiology. Operations: None Procedures: 2-D Echocardiogram, EKG Summary of Care Provided: Patient seen and examined on the day of discharge and appeared to be stable to be discharged home. He remained asymptomatic, no complaints. Vital signs are stable. - Physical Exam General: Alert, Oriented x3, Cooperative, No apparent distress. HEENT: Atraumatic, PERRLA, EOMI. Neck: Supple, No JVD, Negative Carotid Bruits, Trachea Midline, Thyroid Normal. Lungs: Clear to auscultation, Normal air movement, No rhonchi, No wheeze, No rales. Cardiovascular: Regular rate, Regular Rhythm, Normal S1, Normal S2, PMI Normal. Abdomen: Bowel Sounds Present, Soft, Non Tender, Non-Distended, No Hepato- splenomegaly. Extremities: No clubbing, No cyanosis, No edema Skin: No rashes, No breakdown Neurological: Neuro grossly intact Vital Signs are stable. Hospital course: The patient is a 37 year old M because of abnormal labs and he was sent from his PCPs office and was admitted for acute kidney injury and hyperkalemia. Patient had a recent history of ischemic cardiomyopathy and he was started on Lasix, lisinopril and Aldactone. On admission, his creatinine was 2.49 and his baseline creatinine has been normal. Potassium was 5.5 without acute EKG changes. Patient was treated with IV fluids and those nephrotoxic medications were discontinued. His kidney function did improve very slowly and this is likely because of his ischemic cardiomyopathy and low ejection fraction., His potassium returned back to normal. Ultrasound of both kidneys performed and was normal without evidence of obstructive uropathy, no hydronephrosis, no kidney stones and no hydroureter. 2D echocardiogram revealed ejection fraction of 35-40%. There was no evidence of acute CHF. Patient kidney function did improve. His discharge creatinine was 1.55. Patient discharged home in a stable medical condition, Aldactone and metformin discontinued, dose of glimepiride increased to 8 mg p.o. daily, patient started back on small dose of Lasix at 20 mg p.o. daily according to cardiology, started on hydralazine 10 mg p.o. 3 times daily, order given to repeat BMP in 1 week and follow-up with PCP in 1 week and with cardiology as well. Discharge Activity: Return to Normal Activity Weight Bearing Status: Weight bearing as tolerated Call your doctor if you observe: Fever of 101 or Higher, Shortness of breath, Dizziness, Fainting spells, Swelling in the ankles, Chest pain, Increased palpitations (irregular heartbeat), Uncontrolled pain Home Medications: Medications to take at Discharge aspirin 81 mg tablet,delayed release 81 mg PO QDAY tab 11/04/17 atorvastatin 40 mg tablet 40 mg PO QDAY 11/04/17 carvedilol 25 mg tablet 25 mg PO BID 11/04/17 furosemide 20 mg tablet 20 mg PO DAILY tab 11/04/17 multivitamin tablet 1 tab PO QDAY 11/04/17 ascorbic acid (vitamin C) 500 mg capsule 500 mg PO DAILY ea 11/05/17 Ferrous Sulfate 325 mg PO BIDCM #90 tab 12/02/17 Glimepiride [Amaryl] 8 mg PO DAILY #30 tab 12/02/17 hydrALAZINE [Apresoline] 10 mg PO TID #90 tab 12/02/17 Following Prescrptions Were Given to Patient: Glimepiride [Amaryl] 8 mg PO DAILY #30 tab Ferrous Sulfate 325 mg PO BIDCM #90 tab hydrALAZINE [Apresoline] 10 mg PO TID #90 tab Primary Care Physician: Vicente Jang MD [Primary Care Provider] - Please follow up with your Primary Care Physician in: 1 week. Please Follow Up With: Ephraim Vallecillo NP-C When: please call his office. Please Follow Up With: Vicente Jang MD Disposition: Home Minutes spent on discharge:: 32 Patient Condition:: Stable Medical Necessity - Tobacco Use Smoking Status: Never smoker Tobacco Use: Non-smoker Meaningful Use Info Meaningful Use Diagnoses (Choose all that apply): None applicable Code Visit Inpatient E&M: 62917 Disch Hosp
== END 2017-12-02 11:15 | disposition home or self-care (01) | DRG 316 ==
LOC: ED 02:19 → PCU 03:15
PROVIDERS: Hospitalist; Admitting Provider Family Medicine; Emergency Provider Emergency Medicine; Family Provider Internal Medicine; PCP Internal Medicine; Visit Provider Hospitalist
DX: N17.9 Acute kidney failure, unspecified (principal); I11.0 Hypertensive heart disease with heart failure; E87.5 Hyperkalemia; I50.22 Chronic systolic (congestive) heart failure; I36.1 Nonrheumatic tricuspid (valve) insufficiency; D50.9 Iron deficiency anemia, unspecified; E11.9 Type 2 diabetes mellitus without complications; I34.0 Nonrheumatic mitral (valve) insufficiency; Z79.84 Long term (current) use of oral hypoglycemic drugs; I25.10 Atherosclerotic heart disease of native coronary artery without angina pectoris; I25.5 Ischemic cardiomyopathy
CPT/HCPCS: 36415; 76770; 80048; 82570; 82962; 83735; 84300; 85025; 85027; 93005; 93306; 93798; 97802; J7030; A4216

== ENCOUNTER → 2017-12-09 11:24 | Outpatient (CLI) | payer MEDICAID, SELFPAY ==
[2017-12-09 13:11] LABS: Anion Gap 8 (5-15); BUN 26 mg/dL (7-18); BUN/Creat Ratio 14.7 RATIO (10-20); Calcium,Total 9.1 mg/dL (8.5-10.1); Chloride 102 mmol/L (98-107); Creatinine, Serum 1.77 mg/dL (0.70-1.30); EST Glomerular Filtration Rate 46 mL/min (>60); Est Glom Filt Rate - Afr Amer 55 mL/min (>60); Glucose 138 mg/dL (74-106); Potassium 4.3 mmol/L (3.5-5.1); Sodium Level 138 mmol/L (136-145)
== END ==
PROVIDERS: Family Provider Internal Medicine; PCP Internal Medicine; Visit Provider Hospitalist
DX: E78.5 Hyperlipidemia, unspecified (principal); N17.9 Acute kidney failure, unspecified; I50.23 Acute on chronic systolic (congestive) heart failure; I42.9 Cardiomyopathy, unspecified; I25.10 Atherosclerotic heart disease of native coronary artery without angina pectoris
CPT/HCPCS: 36415; 80048; 93798

== ENCOUNTER 2017-12-11 10:15 | Outpatient (RCR) | payer MEDICAID, SELFPAY ==
[2017-12-07 15:06] VITALS: BP 100/60
--- NOTE | 2017-12-07 15:07 | CR.ITP_ITS ---
Exercise - Initial Assessment - Stages of Change Stages of Change:: Action - Exercise Prescription Mode:: Treadmill, Airdyne, NuStep Angina with exercise?: No Target Heart Rate:: Rest HR + 10 BPM - Intervention Home Exercise/Activity Goal:: Moderate Exercise 30 min/day x 5 days/wk - Education Goals:: Warm-up, RPE DESMOND Scale, S/S, Safe Exercise, Self-Monitoring - Exercise Program Goals Exercise Program Goals: Aerobic Activity >30 min Exercise - 30-day Assessment - Visit Date of Eval: 12/07/17 - 11/16/2017-12/04/2017 Session #:: 6 - Stages of Change Stages of Change:: Action - Exercise Prescription Mode:: Airdyne, NuStep Frequency (x/week): 3 Duration:: 30 METs - Progression: 0.5-1 MET as tolerated: 3 Target Heart Rate:: Rest + 15 Max HR 91 - Hypertension Resting Blood Pressure:: 100/60 Peak Exercise Blood Pressure:: 100/60 Medication Changes:: No - Intervention Home Exercise/Activity Goal:: Sitting Time <3 hrs/day - Education Goals:: Warm-up, RPE DESMOND Scale, S/S, Safe Exercise, Self-Monitoring - Exercise Program Goals Exercise Program Goals: Aerobic Activity >30 min, B/P <140/90 Nutrition - Initial Assessment - Program Goals Nutrition Program Goals: LDL <70. Total Cholesterol <200. HDL >45. Triglycerides <150. HgbA1C <7%. BMI <25 - Diabetes Diabetes:: Yes Non-Insulin Dependent?: Yes - Metformin 1000mg BID, glimepiride 4mg Do you monitor your blood sugar at home?: No - issues with insurance at present time - Weight Management Total Score:: 2 - Intervention Referral to dietitian:: Yes Referral to Diabetic Clinic:: Yes Will attend diet classes:: Yes - Education Gave educational materials for:: Signs & symptoms of hypoglycemia, Signs & symptoms of hyperglycemia, Relate diabetes to coronary artery disease, Healthy eating Nutrition - 30-Day Assessment - Program Goals Nutrition Program Goals: LDL <70. Total Cholesterol <200. HDL >45. Triglycerides <150. HgbA1C <7%. BMI <25 - Visit Date of Eval: 12/07/17 - 11/16/2017-12/04/2017 - Stages of Change Stages of Change:: Action - Lipids Has the patient seen the dietitian?: No - Diabetes Diabetes:: Yes Insulin: No Non-Insulin Dependent?: Yes - Metformin 1000mg BID, glimepiride 4mg - Weight Management Weight:: 85.502 kg - Intervention Referral to dietitian:: Yes Referral to Diabetic Clinic:: Yes Will attend diet classes:: Yes - Education Attended class for:: Signs & symptoms of hypoglycemia, Signs & symptoms of hyperglycemia, Relate diabetes to coronary artery disease, Healthy eating Nutrition - 60-Day Assessment - Program Goals Nutrition Program Goals: LDL <70. Total Cholesterol <200. HDL >45. Triglycerides <150. HgbA1C <7%. BMI <25 - Diabetes Diabetes:: Yes Insulin: No Non-Insulin Dependent?: Yes - Metformin 1000mg BID, glimepiride 4mg - Intervention Referral to dietitian:: Yes Referral to Diabetic Clinic:: Yes Will attend diet classes:: Yes - Education Attended class for:: Signs & symptoms of hypoglycemia, Signs & symptoms of hyperglycemia, Relate diabetes to coronary artery disease, Healthy eating Nutrition - 90-Day Assessment - Program Goals Nutrition Program Goals: LDL <70. Total Cholesterol <200. HDL >45. Triglycerides <150. HgbA1C <7%. BMI <25 - Diabetes Diabetes:: Yes Insulin: No Non-Insulin Dependent?: Yes - Metformin 1000mg BID, glimepiride 4mg - Intervention Referral to dietitian:: Yes Referral to Diabetic Clinic:: Yes Will attend diet classes:: Yes - Education Attended class for:: Signs & symptoms of hypoglycemia, Signs & symptoms of hyperglycemia, Relate diabetes to coronary artery disease, Healthy eating Nutrition - Final Assessment - Program Goals Nutrition Program Goals: LDL <70. Total Cholesterol <200. HDL >45. Triglycerides <150. HgbA1C <7%. BMI <25 - Diabetes Diabetes:: Yes Insulin: No Non-Insulin Dependent?: Yes - Metformin 1000mg BID, glimepiride 4mg - Weight Management Total Score:: 2 - Intervention Referral to dietitian:: Yes Referral to Diabetic Clinic:: Yes Will attend diet classes:: Yes Tobacco - Initial Assessment - Program Goals Tobacco Program Goals: Complete smoking cessation. Attend education classes. Improve Knowledge Test score - Stage of Change Stages of Change:: Action - Learning Barriers Learning Barriers: Vision Total Score:: 4 - Family Support Do you have family support?: Yes - Tobacco Use Tobacco Use: Non-smoker Do you use smokeless tobacco?: No - Intervention Smoking Cessation Referral:: No Individual Education/Counseling:: No Education Schedule Given:: Yes - Education Gave educational material for:: Coronary artery disease, Risk factors, Sexuality , Medical compliance, Cardiac A&P, Angina signs & symptoms Tobacco - 30-Day Assessment - Program Goals Tobacco Program Goals: Complete smoking cessation. Attend education classes. Improve Knowledge Test score - Stage of Change Stages of Change:: Action - Learning Barriers Learning Barriers: Participates in education - Family Support Do you have family support?: Yes - Tobacco Use Tobacco Use: Non-smoker Do you use smokeless tobacco?: No - Intervention Smoking Cessation Referral:: No Individual Education/Counseling:: No Education Schedule Given:: Yes - Education Attended class for:: Coronary artery disease, Risk factors, Sexuality, Medical compliance, Cardiac A&P, Angina signs & symptoms Tobacco - 60-Day Assessment - Program Goals Tobacco Program Goals: Complete smoking cessation. Attend education classes. Improve Knowledge Test score - Family Support Do you have family support?: Yes - Tobacco Use Do you use smokeless tobacco?: No - Intervention Smoking Cessation Referral:: No Individual Education/Counseling:: No Education Schedule Given:: Yes - Education Attended class for:: Coronary artery disease, Risk factors, Sexuality, Medical compliance, Cardiac A&P, Angina signs & symptoms Tobacco - 90-Day Assessment - Program Goals Tobacco Program Goals: Complete smoking cessation. Attend education classes. Improve Knowledge Test score - Family Support Do you have family support?: Yes - Tobacco Use Do you use smokeless tobacco?: No - Intervention Smoking Cessation Referral:: No Individual Education/Counseling:: No Education Schedule Given:: Yes - Education Attended class for:: Coronary artery disease, Risk factors, Sexuality, Medical compliance, Cardiac A&P, Angina signs & symptoms Tobacco - Final Assessment - Program Goals Tobacco Program Goals: Complete smoking cessation. Attend education classes. Improve Knowledge Test score - Learning Barriers Cardiac Knowledge Test Score:: 4 - Family Support Do you have family support?: Yes - Tobacco Use Do you use smokeless tobacco?: No - Intervention Smoking Cessation Referral:: No Individual Education/Counseling:: No Education Schedule Given:: Yes Psychosocial - Initial Assess - Target Goals Target Goals: Assess presence or absence of depression. Using a valid screening tool, maximizes coping skills. Positive support system - Stages of Change Stages of Change:: Action - Psychosocial Test Tool Used:: HANDS Depression Questionnaire Self-Efficacy Score:: 8 - Intervention PS - Interventions: Yes Attend Stress Management Classes, No Referral to Mental Health, No Referral to [facility] Case Management, No Referral to Physician, No Uses Stress Management Skills - Education Gave educational materials for:: Coping techniques, Signs & symptoms of depression, Stress management, Relaxation techniques - Patient/Program Goal Preventative Medication(s):: Aspirin, TEQUILA inhibitor, Clopidogrel, Beta cassia, Statin/lipid - Assistive Devices Assistive Devices:: None Fall Risk Assessed:: Yes Psychosocial - 30-Day Assess - Target Goals Target Goals: Assess presence or absence of depression. Using a valid screening tool, maximizes coping skills. Positive support system - Stages of Change Stages of Change:: Action - Psychosocial Test Tool Used:: HANDS Depression Questionnaire Self-Efficacy Score:: 8 - Intervention PS - Interventions: Yes Attend Stress Management Classes, Yes Uses Stress Management Skills, No Referral to Mental Health, No Referral to [facility] Case Management, No Referral to Physician - Education Attended classes for:: Stress management, Relaxation techniques - Patient/Program Goal Preventative Medication(s):: Aspirin, TEQUILA inhibitor, Clopidogrel, Beta cassia, Statin/lipid - Assistive Devices Assistive Devices:: None Fall Risk Assessed:: Yes Psychosocial - 60-Day Assess - Target Goals Target Goals: Assess presence or absence of depression. Using a valid screening tool, maximizes coping skills. Positive support system - Psychosocial Test Tool Used:: HANDS Depression Questionnaire Self-Efficacy Score:: 8 - Education Attended classes for:: Coping techniques, Signs & symptoms of depression, Stress management, Relaxation techniques - Patient/Program Goal Preventative Medication(s):: Aspirin, TEQUILA inhibitor, Clopidogrel, Beta cassia, Statin/lipid - Assistive Devices Assistive Devices:: None Fall Risk Assessed:: Yes Psychosocial - 90-Day Assess - Target Goals Target Goals: Assess presence or absence of depression. Using a valid screening tool, maximizes coping skills. Positive support system - Psychosocial Test Tool Used:: HANDS Depression Questionnaire Self-Efficacy Score:: 8 - Education Attended classes for:: Coping techniques, Signs & symptoms of depression, Stress management, Relaxation techniques - Patient/Program Goal Preventative Medication(s):: Aspirin, TEQUILA inhibitor, Clopidogrel, Beta cassia, Statin/lipid - Assistive Devices Assistive Devices:: None Fall Risk Assessed:: Yes Psychosocial - Final Assessmen - Target Goals Target Goals: Assess presence or absence of depression. Using a valid screening tool, maximizes coping skills. Positive support system - Psychosocial Test Tool Used:: HANDS Depression Questionnaire Self-Efficacy Score:: 8 - Patient/Program Goal Preventative Medication(s):: Aspirin, TEQUILA inhibitor, Clopidogrel, Beta cassia, Statin/lipid - Assistive Devices Assistive Devices:: None Fall Risk Assessed:: Yes Patient Health Questionnaire 30-Day Re-eval Assessment 1. Little interest or pleasure in doing things: Not at all 2. Feeling down, depressed, or hopeless: Not at all 3. Trouble falling or staying asleep, or sleeping too much: Not at all 4. Feeling tired or having little energy: Several days 5. Poor appetite or overeating: Several days 6. Feeling bad about yourself -- or that you are a failure or have let yourself or your family down: Not at all 7. Trouble concentrating on things, such as reading the newspaper or watching television: Not at all 8. Moving or speaking so slowly that other people could have noticed. Or the opposite - being so fidgety or restless that you have been moving around a lot more than usual: Not at all 9. Thoughts that you would be better off , or of hurting yourself in some way: Not at all How difficult have these problems made it for you to do your work, take care of things at home, or get along with other people?: Not difficult at all Total Score: 2 Self-Efficacy 30-Day Re-eval Assessment We would like to know how confident you are in doing certain activities. Please select your confidence level for:: Select your confidence level for the following using the scale 1-10 where 1 is not at all confident and 10 is totally confident. Your score is the average of all 6 responses. Fatigue: How confident are you that you can keep the fatigue caused by your disease from interfering with the things you want to do? Select Number: 7 Physical Discomfort or Pain: How confident are you that you can keep the physical discomfort or pain of your disease from interfering with the things you want to do? Select Number: 7 Emotional Distress: How confident are you that you can keep the emotional distress caused by your disease from interfering with the things you want to do? Select Number: 7 Other Symptoms or Health Problems: How confident are you that you can keep other symptoms or health problems from interfering with the things you want to do? Select Number: 7 Different Tasks and Activities: How confident are you that you can do the different tasks and activities needed to manage your health condition so as to reduce your need to see a doctor? Select Number: 7 Medication: How confident are you that you can do things other than just taking medication to reduce how much your illness affects your everyday life? Select Number: 7 Total Score:: 7 Cardiac Rehabilitation Goals - Cardiac Rehab Goals Cardiac Rehabilitation Goals: 1. Maintain the individual as the primary focus of care. 2. To improve the patient's quality of life. 3. Identification of cardiac risk factors and provide cardiac risk factor management. 4. Enhance the psychosocial status of the patient. 5. Reconditioning enough to allow the patient to resume customary activities. 6. Control symptoms of cardiac disease - Scale Scale for measuring improvement of personal goals: Enter appropriate number in Comments. 2 = Unchanged. 3 = Slightly Better. 4 = Moderate Improvement. 5 = Met my Goal 30-Day Re-eval Assessment Personal Goals: 60-day Re-assessment: Improve energy level, Participate in home exercise program, Get back to work, or to resume activities faster, Improve knowledge of cardiac disease, Improve muscle strength and endurance, Improve diet and eating habits (eat healthier)
== END 2017-12-12 23:59 ==
LOC: CR 10:15
PROVIDERS: Family Provider Internal Medicine; PCP Internal Medicine; Visit Provider Internal Medicine Cardiovascular Disease
DX: I50.23 Acute on chronic systolic (congestive) heart failure (principal); I42.9 Cardiomyopathy, unspecified; I25.10 Atherosclerotic heart disease of native coronary artery without angina pectoris
CPT/HCPCS: 93798

== ENCOUNTER 2018-01-11 10:15 | Outpatient (RCR) | payer MEDICAID, SELFPAY ==
[2017-12-13 01:06] VITALS: BP 100/60
--- NOTE | 2018-01-04 11:53 | PCM.CR.ITP ---
General Information - General Information Admitting Diagnosis: acute on chronic heart failure - Education/Goals Barriers to Learning: None Individual Counselin-Day Assessment: High Blood Pressure Cardiac Rehabilitation Goals: 1. Maintain the individual as the primary focus of care. 2. To improve the patient's quality of life. 3. Identification of cardiac risk factors and provide cardiac risk factor management. 4. Enhance the psychosocial status of the patient. 5. Reconditioning enough to allow the patient to resume customary activities. 6. Control symptoms of cardiac disease Scale for measuring improvement of personal goals: Enter appropriate number in Comments. 2 = Unchanged. 3 = Slightly Better. 4 = Moderate Improvement. 5 = Met my Goal Personal Goals: 60-day Re-assessment: Improve energy level, Participate in home exercise program, Get back to work, or to resume activities faster - goal achieved, Improve knowledge of cardiac disease, Improve muscle strength and endurance, Improve diet and eating habits (eat healthier) Exercise - 60-Day Assessment - Visit Date of Eval: 01/04/18 Session #:: 20 - Stages of Change Stages of Change:: Action - Exercise Prescription Mode:: Airdyne NuStpatria Frequency (x/week): 3 Duration:: 30 METs: 4.5 Target Heart Rate:: 112-120 - Hypertension Resting Blood Pressure:: 130/84 Peak Exercise Blood Pressure:: 130/84 Medication Changes:: No - Intervention Home Exercise/Activity Goal:: Sitting Time <3 hrs/day - Education Goals:: Warm-up, RPE DESMOND Scale, S/S, Safe Exercise, Self-Monitoring - Exercise Program Goals Exercise Program Goals: Aerobic Activity >30 min, B/P <140/90 Nutrition - Initial Assessment - Program Goals Nutrition Program Goals: LDL <70. Total Cholesterol <200. HDL >45. Triglycerides <150. HgbA1C <7%. BMI <25 - Diabetes Do you monitor your blood sugar at home?: No - issues with insurance at present time Nutrition - 60-Day Assessment - Program Goals Nutrition Program Goals: LDL <70. Total Cholesterol <200. HDL >45. Triglycerides <150. HgbA1C <7%. BMI <25 - Visit Date of Eval: 01/04/18 - Stages of Change Stages of Change:: Action - Lipids Has the patient seen the dietitian?: No - Diabetes Diabetes:: No - Weight Management Weight:: 90.038 kg - Intervention Referral to dietitian:: No Referral to Diabetic Clinic:: No Will attend diet classes:: Yes - Education Attended class for:: Signs & symptoms of hypoglycemia, Signs & symptoms of hyperglycemia, Relate diabetes to coronary artery disease, Healthy eating Tobacco - Initial Assessment - Program Goals Tobacco Program Goals: Complete smoking cessation. Attend education classes. Improve Knowledge Test score - Learning Barriers Learning Barriers: Vision Tobacco - 60-Day Assessment - Program Goals Tobacco Program Goals: Complete smoking cessation. Attend education classes. Improve Knowledge Test score - Stage of Change Stages of Change:: Action - Learning Barriers Learning Barriers: Participates in education - Tobacco Use Tobacco Use: Non-smoker Do you use smokeless tobacco?: No - Intervention Smoking Cessation Referral:: No Individual Education/Counseling:: No Education Schedule Given:: Yes - Education Attended class for:: Tobacco triggers, Coronary artery disease, Risk factors, Sexuality, Medical compliance, Cardiac A&P, Angina signs & symptoms Psychosocial - Initial Assess - Target Goals Target Goals: Assess presence or absence of depression. Using a valid screening tool, maximizes coping skills. Positive support system - Psychosocial Test Tool Used:: HANDS Depression Questionnaire - Assistive Devices Fall Risk Assessed:: Yes Psychosocial - 60-Day Assess - Target Goals Target Goals: Assess presence or absence of depression. Using a valid screening tool, maximizes coping skills. Positive support system - Stages of Change Stages of Change:: Action - Psychosocial Test Tool Used:: HANDS Depression Questionnaire - Intervention PS - Interventions: Yes Attend Stress Management Classes, Yes Uses Stress Management Skills, No Referral to Mental Health, No Referral to [facility] Case Management, No Referral to Physician - Education Attended classes for:: Coping techniques, Signs & symptoms of depression, Stress management, Relaxation techniques - Assistive Devices Assistive Devices:: None Fall Risk Assessed:: Yes Patient Health Questionnaire 60-Day Re-eval Assessment 1. Little interest or pleasure in doing things: Not at all 2. Feeling down, depressed, or hopeless: Not at all 3. Trouble falling or staying asleep, or sleeping too much: Not at all 4. Feeling tired or having little energy: Not at all 5. Poor appetite or overeating: Not at all 6. Feeling bad about yourself -- or that you are a failure or have let yourself or your family down: Not at all 7. Trouble concentrating on things, such as reading the newspaper or watching television: Not at all 8. Moving or speaking so slowly that other people could have noticed. Or the opposite - being so fidgety or restless that you have been moving around a lot more than usual: Not at all 9. Thoughts that you would be better off , or of hurting yourself in some way: Not at all How difficult have these problems made it for you to do your work, take care of things at home, or get along with other people?: Not difficult at all Total Score: 0 Self-Efficacy 60-Day Re-eval Assessment We would like to know how confident you are in doing certain activities. Please select your confidence level for:: Select your confidence level for the following using the scale 1-10 where 1 is not at all confident and 10 is totally confident. Your score is the average of all 6 responses. Fatigue: How confident are you that you can keep the fatigue caused by your disease from interfering with the things you want to do? Select Number: 6 Physical Discomfort or Pain: How confident are you that you can keep the physical discomfort or pain of your disease from interfering with the things you want to do? Select Number: 10 Emotional Distress: How confident are you that you can keep the emotional distress caused by your disease from interfering with the things you want to do? Select Number: 10 Other Symptoms or Health Problems: How confident are you that you can keep other symptoms or health problems from interfering with the things you want to do? Select Number: 10 Different Tasks and Activities: How confident are you that you can do the different tasks and activities needed to manage your health condition so as to reduce your need to see a doctor? Select Number: 8 Medication: How confident are you that you can do things other than just taking medication to reduce how much your illness affects your everyday life? Select Number: 8 Total Score:: 8
[2018-01-04 11:58] VITALS: BP 130/84
== END 2018-01-11 23:59 ==
LOC: CR 10:15
PROVIDERS: Family Provider Internal Medicine; PCP Internal Medicine; Visit Provider Internal Medicine Cardiovascular Disease
DX: I50.23 Acute on chronic systolic (congestive) heart failure (principal); I42.9 Cardiomyopathy, unspecified; I25.10 Atherosclerotic heart disease of native coronary artery without angina pectoris
CPT/HCPCS: 93798

== ENCOUNTER → 2018-01-12 10:04 | Outpatient (CLI) | payer MEDICAID, SELFPAY ==
--- NOTE | 2018-01-12 10:06 | ECHOD_ITS ---
Reason For Study: Cardiomyopathy Procedure This was a 2D Doppler, Color Flow transthoracic echocardiogram. The exam was of adequate technical quality. Exam performed in department. Left Ventricle Mildly dilated left ventricle. Apical false tendon noted. Mild segmental systolic dysfunction (see wall motion). The estimated ejection fraction is 45 %. Stage 3 diastolic dysfunction. Infero-Basal: Hypokinetic. Basal inferoseptal: Hypokinetic. Mid-Lateral : Hypokinetic. Mid-Posterior: Hypokinetic. Mid-Inferior: Hypokinetic. Inferior Marianna : Hypokinetic. Lateral Marianna : Hypokinetic. Septal Marianna : Hypokinetic. Right Ventricle Normal RV size. Normal systolic function. Atria The left atrium is mildly enlarged. Normal right atrium. No doppler evidence for ASD. Mitral Valve There is no mitral annular calcification. Mild papillary muscle dysfunction of the mitral valve. Moderately severe (3+) mitral valve insufficiency. Tricuspid Valve Poor coaptation of the tricuspid valve. Mild tricuspid valve insufficiency. Right ventricular systolic pressure estimated to be 61 mmHg. Aortic Valve Trisinus/trileaflet aortic valve. Normal aortic valve. Pulmonic Valve Normal pulmonic valve. Mild (1+) pulmonic valve insufficiency. Great Vessels Normal sized aortic root. Pericardium/Pleural Trivial pericardial effusion. There are no echocardiographic indications of cardiac tamponade. MMode/2D Measurements & Calculations LVIDd: 5.5 cm IVSd: 0.97 cm Ao root diam: 2.9 cm LVIDs: 4.3 cm LVPWd: 1.0 cm LA dimension: 4.5 cm FS: 22.3 % LAV(MOD-bp): 95.4 ml EDV(MOD-sp4): 154.2 ml EDV(MOD-sp2): 160.7 ml LAV(MOD-bp) Indexed: 47.2 ml/m2 ESV(MOD-sp4): 76.0 ml EF(MOD-sp2): 45.6 % LAV(MOD-sp2): 91.7 ml EF(MOD-sp4): 50.7 % LAV(MOD-sp4): 81.2 ml SV(MOD-sp4): 78.2 ml SV(MOD-sp2): 73.3 ml LA A4 area: 25.9 cm2 RA A4 area: 15.3 cm2 Doppler Measurements & Calculations MV E max manuel: 132.5 cm/sec Lat Peak E' Manuel: 11.6 cm/sec Med Peak E' Manuel: 5.0 cm/sec MV A max manuel: 41.1 cm/sec E/E' lat: 11.4 E/E' med: 26.3 MV E/A: 3.2 Ao V2 max: 136.5 cm/sec LV V1 max: 82.7 cm/sec PA V2 max: 70.6 cm/sec Ao max P.5 mmHg LV V1 max P.7 mmHg TR max manuel: 379.3 cm/sec TR max P.9 mmHg Interpretation Summary Mildly dilated left ventricle. Mild segmental systolic dysfunction (see wall motion). The estimated ejection fraction is 45 %. Apical false tendon noted. The left atrium is mildly enlarged. Mild papillary muscle dysfunction of the mitral valve. Moderately severe (3+) mitral valve insufficiency. Poor coaptation of the tricuspid valve. Mild tricuspid valve insufficiency. Mild (1+) pulmonic valve insufficiency. Trivial pericardial effusion. There are no echocardiographic indications of cardiac tamponade. Right ventricular systolic pressure estimated to be 61 mmHg. Stage 3 diastolic dysfunction. Ordering Physician: Augusto Murphy Referring Physician: Vicente Jang M.D. Performed By: Ivette Ojeda RDCS
[2018-01-12 12:51] LABS: Anion Gap 5 (5-15); BUN 12 mg/dL (7-18); BUN/Creat Ratio 8.2 RATIO (10-20); Calcium,Total 8.6 mg/dL (8.5-10.1); Chloride 110 mmol/L (98-107); Creatinine, Serum 1.47 mg/dL (0.70-1.30); EST Glomerular Filtration Rate 56 mL/min (>60); Est Glom Filt Rate - Afr Amer 68 mL/min (>60); Glucose 123 mg/dL (74-106); Potassium 4.2 mmol/L (3.5-5.1); Sodium Level 143 mmol/L (136-145)
== END ==
PROVIDERS: Family Provider Internal Medicine; PCP Internal Medicine; Visit Provider Internal Medicine Cardiovascular Disease
DX: I42.9 Cardiomyopathy, unspecified (principal); I50.20 Unspecified systolic (congestive) heart failure; I50.23 Acute on chronic systolic (congestive) heart failure; I36.1 Nonrheumatic tricuspid (valve) insufficiency; I34.0 Nonrheumatic mitral (valve) insufficiency; I25.10 Atherosclerotic heart disease of native coronary artery without angina pectoris
CPT/HCPCS: 36415; 80048; 93306

== ENCOUNTER 2018-01-15 10:15 | Outpatient (RCR) | payer MEDICAID, SELFPAY ==
[2018-01-12 00:51] VITALS: BP 130/84
== END 2018-01-25 10:14 | disposition home or self-care (01) ==
LOC: CR 10:15
PROVIDERS: Family Provider Internal Medicine; PCP Internal Medicine; Visit Provider Internal Medicine Cardiovascular Disease
DX: I50.23 Acute on chronic systolic (congestive) heart failure (principal); I42.9 Cardiomyopathy, unspecified; I25.10 Atherosclerotic heart disease of native coronary artery without angina pectoris
CPT/HCPCS: 93798

== ENCOUNTER → 2018-01-23 10:14 | Outpatient (CLI) | payer MEDICAID, SELFPAY ==
[2018-01-23 11:37] LABS: Anion Gap 5 (5-15); BUN 25 mg/dL (7-18); BUN/Creat Ratio 16.2 RATIO (10-20); Calcium,Total 8.5 mg/dL (8.5-10.1); Chloride 109 mmol/L (98-107); Creatinine, Serum 1.54 mg/dL (0.70-1.30); EST Glomerular Filtration Rate 54 mL/min (>60); Est Glom Filt Rate - Afr Amer 65 mL/min (>60); Glucose 158 mg/dL (74-106); Potassium 4.6 mmol/L (3.5-5.1); Sodium Level 142 mmol/L (136-145)
== END ==
PROVIDERS: Family Provider Internal Medicine; PCP Internal Medicine; Visit Provider Internal Medicine Cardiovascular Disease
DX: I50.20 Unspecified systolic (congestive) heart failure (principal); I50.23 Acute on chronic systolic (congestive) heart failure; I36.1 Nonrheumatic tricuspid (valve) insufficiency; I34.0 Nonrheumatic mitral (valve) insufficiency; I25.10 Atherosclerotic heart disease of native coronary artery without angina pectoris; I38 Endocarditis, valve unspecified; I42.9 Cardiomyopathy, unspecified
CPT/HCPCS: 80048

== ENCOUNTER → 2018-03-08 10:32 | Outpatient (CLI) | payer MEDICAID, SELFPAY ==
[2018-03-08 11:32] LABS: Anion Gap 9 (5-15); BUN 22 mg/dL (7-18); BUN/Creat Ratio 11.8 RATIO (10-20); Calcium,Total 8.5 mg/dL (8.5-10.1); Chloride 106 mmol/L (98-107); Creatinine, Serum 1.86 mg/dL (0.70-1.30); EST Glomerular Filtration Rate 43 mL/min (>60); Est Glom Filt Rate - Afr Amer 52 mL/min (>60); Glucose 133 mg/dL (74-106); Potassium 4.5 mmol/L (3.5-5.1); Sodium Level 142 mmol/L (136-145)
== END ==
PROVIDERS: Family Provider Internal Medicine; PCP Internal Medicine; Visit Provider Internal Medicine Cardiovascular Disease
DX: I50.23 Acute on chronic systolic (congestive) heart failure (principal); I36.1 Nonrheumatic tricuspid (valve) insufficiency; I34.0 Nonrheumatic mitral (valve) insufficiency; I27.20 Pulmonary hypertension, unspecified
CPT/HCPCS: 36415; 80048

== ENCOUNTER → 2018-03-31 08:16 | Outpatient (CLI) | payer MEDICAID, SELFPAY ==
[2018-03-31 09:51] LABS: Anion Gap 7 (5-15); BUN 27 mg/dL (7-18); BUN/Creat Ratio 13.6 RATIO (10-20); Calcium,Total 8.7 mg/dL (8.5-10.1); Chloride 104 mmol/L (98-107); Creatinine, Serum 1.98 mg/dL (0.70-1.30); EST Glomerular Filtration Rate 40 mL/min (>60); Est Glom Filt Rate - Afr Amer 48 mL/min (>60); Glucose 248 mg/dL (74-106); Potassium 3.7 mmol/L (3.5-5.1); Sodium Level 141 mmol/L (136-145)
== END ==
PROVIDERS: Family Provider Internal Medicine; PCP Internal Medicine; Visit Provider Internal Medicine Cardiovascular Disease
DX: I50.20 Unspecified systolic (congestive) heart failure (principal); I36.1 Nonrheumatic tricuspid (valve) insufficiency; I34.0 Nonrheumatic mitral (valve) insufficiency; I25.10 Atherosclerotic heart disease of native coronary artery without angina pectoris; I42.9 Cardiomyopathy, unspecified
CPT/HCPCS: 36415; 80048

== ENCOUNTER → 2019-09-29 14:29 | Outpatient (CLI) | payer OTHER, SELFPAY ==
[2019-09-29 11:12] VITALS: BMI 31.1
[2019-09-29 15:16] LABS: Absolute Lymphocyte Count 1.61 X10^3/uL (0.83-4.51); Absolute Neutrophil Count 4.2 X10^3/uL (2.0-7.7); Basophil# 0.04 X10^3/uL; Basophil% 0.6 % (0-1); Eosinophils% 1.6 % (0-5); Hemoglobin 12.1 g/dL (13.0-16.5); Lymphocyte # 1.61 X10^3/ul (4.0); Lymphocyte % 25.3 % (19-41); Mean Corp Hgb Conc 34.6 g/dL (32-36); Mean Corpuscular Hgb 27.4 pg (27.0-32.0); Mean Corpuscular Volume 79.4 fL (80-94); Mean Platelet Vol. 9.1 fl (6.2-12.0); Monocyte# 0.44 X10^3/uL; Monocyte% 6.9 % (0-10); NRBC Flagged by Analyzer 0 % (0-5); Neutrophil # 4.15 X10^3/uL (2.7-7.7); Neutrophil % 65.1 % (47-70); Platelet Count 189 K/mm3 (150-450); RBC Distribution Width CV 12.4 % (11.6-14.6); RBC Distribution Width SD 35.5 fl (35.1-43.9); Red Blood Count 4.41 M/mm3 (4.6-6.2); White Blood Count 6.4 K/mm3 (4.4-11.0)
[2019-09-29 15:40] LABS: BNP,B-Type NATRIURETIC PEPTIDE 9.4 pg/mL (0-100)
[2019-09-29 15:43] LABS: AST(SGOT) 12 U/L (15-37); Alanine Aminotransfer ALT/SGPT 26 U/L (16-61); Albumin, Serum 3.9 g/dL (3.2-5.0); Alkaline Phosphatase 136 U/L (45-117); Anion Gap 3 (5-15); BUN 32 mg/dL (7-18); BUN/Creat Ratio 12.4 RATIO (10-20); Chloride 104 mmol/L (98-107); Cholesterol 84 mg/dL (200); Creatinine, Serum 2.58 mg/dL (0.70-1.30); EST Glomerular Filtration Rate 29 mL/min (>60); Est Glom Filt Rate - Afr Amer 35 mL/min (>60); Globulin 3.6 g/dL (2.2-4.2); Glucose 302 mg/dL (74-106); High Density Lipoprotein 30 mg/dL; Potassium 4.5 mmol/L (3.5-5.1); Protein, Total 7.5 g/dL (6.4-8.2); Sodium Level 136 mmol/L (136-145); T4 Free Direct 1.47 ng/dL (0.76-1.46); Thyroid Stim Hormone (TSH) 0.62 uIU/mL (0.358-3.74); Triglycerides 115 mg/dL; Very Low Density Lipoprotein 23 mg/dL (5-40)
== END ==
PROVIDERS: PCP Internal Medicine; Referring Provider Nurse Practitioner Family; Visit Provider Nurse Practitioner Family
DX: I10 Essential (primary) hypertension (principal); I27.20 Pulmonary hypertension, unspecified; I25.10 Atherosclerotic heart disease of native coronary artery without angina pectoris; I42.9 Cardiomyopathy, unspecified; I34.0 Nonrheumatic mitral (valve) insufficiency; R06.09 Other forms of dyspnea
CPT/HCPCS: 36415; 80048; 80061; 80076; 83880; 84439; 84443; 85025

== ENCOUNTER 2019-10-08 10:02 | Day surgery (SDC) | payer OTHER, SELFPAY ==
[2019-09-29 11:12] VITALS: BMI 31.1
[2019-10-08] VITALS (8 sets, daily range): BP systolic 162–182; BP diastolic 78–95; PULSE 70–95; RESP 16–18; TEMP 36.6–37.4; O2SAT 98–100; BMI 31.1
--- NOTE | 2019-10-08 10:34 | ED.DCSUM_ITS ---
History of Present Illness Chief Complaint: Abd Pain Informant: Patient Onset: Today Current Severity: Mild Maximum Severity: Mild Narrative: Patient complains of lower abdominal pain that began this morning, crampy disc omfort both right and left side, he has a history of CHF that is improving, no history of AR PE DVT valvular heart disease, no history of GI ailments, he does report that he was started on some unspecified CHF medication and he has weak kidneys and his physicians have been monitoring that. He indicates he had a head cold for a few days with runny nose and cough he indicates his bowel habits are loose no blood he has had normal urinary habits, he describes the pain as a crampy sensation that seems to come and go he has again no history of GI ailments colitis diverticulitis, no history of GI surgery he was able to eat today Prior similar symptoms: Yes Past Medical History - Allergies and Home Meds Allergies/Adverse Reactions: Allergies liraglutide [From Victoza] Allergy (Verified 10/08/19 10:04) Other lisinopril Allergy (Verified 10/08/19 10:04) Other AFFECTED MY KIDNEYS Primary Care Physician: Vicente Jang MD [Primary Care Provider] - Past Medical History: - - Just of heart failure improved followed by Dr. Mcdowell spaw Surgical History: - - tube placements in ears as child, tonque clipped as infant Smoking Status: Never smoker - Family History Paternal Family History: Family History (Last Reviewed 02/25/18 @ 13:59 by Leticia Perrin) Father Heart disease Grandmother Heart disease Diabetes Grandfather Diabetes Family History: Reports: Heart Disease Maternal Family History: Family History (Last Reviewed 02/25/18 @ 13:59 by Leticia Perrin) Father Heart disease Grandmother Heart disease Diabetes Grandfather Diabetes Family History: Reports: No pertinent history Review of Systems General: Denies: Chills, Fever, Sweats Eyes: Denies: Visual changes - bilaterally, Diplopia ENT: Denies: Rhinorrhea, Sore throat Cardiovascular: Denies: Chest pain, Palpitations Respiratory: Denies: Dyspnea, Cough, Dyspnea on exertion Gastrointestinal: Reports: Abdominal pain, Diarrhea. Denies: Nausea, Vomiting, Melena, Hematochezia Genitourinary: Denies: Dysuria, Hematuria, Frequency Musculoskeletal: Denies: Back pain, Extremity Pain Skin: Denies: Rash, Wounds Neurological: Denies: Headache, Weakness, Numbness Physical Exam Vital Signs/Narrative: Vital Signs Temp Pulse Resp BP Pulse Ox 10/08/19 10:15 16 10/08/19 10:03 98.8 F 95 16 182/95 H 99 General: Well nourished, Well developed, No Acute Distress Head: Normocephalic, Atraumatic Eyes: Perrl, EOMI ENT: Moist mucous membranes, No rhinorrhea Neck: Supple, Nontender Cardiovascular: Regular rate, Regular rhythm, No murmurs Respiratory: No distress, CTA bilaterally, Chest nontender Abdomen: Soft, Normal bowel sounds, - - Very vague nonspecific discomfort to the lower right suprapubic and left-sided abdominal area, no obvious rebound or guarding he indicates the pain seems to begin sometimes in the right and then radiate to the left Back: Nontender, Normal Inspection Extremities: Nontender, No edema Skin: Normal color, No rash Neurological: Alert, Oriented x3, Cranial nerves II-XII grossly intact, Normal Strength, Normal Sensation Psychological: Normal affect, Normal Mood Diagnostic/Tx/Re-eval - Medical Decision Making Given all of the above and his complaint screening labs IV fluids pain management CT Screening labs are generally unremarkable his creatinine is 2.45 that slightly elevated from his baseline, the white count is unremarkable, as is the UA, the C T shows signs of uncomplicated greenfield ascites, he was started on IV antibiotics we spoke with Dr. Castillo of surgery and he will be admitted for further management patient understands all questions answered Admit stable Final impression acute appendicitis URI ED Disposition - Plan for ED Patient: Diagnosis: Acute appendicitis Referrals: Vicente Jang MD [Primary Care Provider] -
--- NOTE | 2019-10-08 10:37 | CT_ITS ---
STUDY: CT ABDOMEN AND PELVIS WITHOUT CONTRAST REASON FOR EXAM: Male, 39 years old. ABD PAIN X-TODAY--ACROSS LOW GROIN AREA and amp; RLQ RADIATION DOSAGE (If Supplied By Facility): CTDIvol = ( 14.92 ) mGy, DLP = ( 835.11 ) mGycm TECHNIQUE: Transaxial images were obtained from the dome of the diaphragm to the symphysis pubis without oral contrast, and without intravenous contrast. Sagittal and coronal images were reconstructed. Individualized dose optimization techniques were used for this CT. COMPARISON: None. FINDINGS: The visualized lung bases are unremarkable. The visualized portions of the heart are within normal limits. Normal liver. Normal gallbladder and extrahepatic biliary system. There is mild splenomegaly. Normal pancreas. Normal bilateral adrenal glands. Normal right kidney. Normal left kidney. Normal visualized stomach. Normal small intestine. Normal colon. There is some wall thickening and periappendiceal fat stranding without abscess or perforation compatible with acute uncomplicated appendicitis. Normal abdominal aorta. Normal inferior vena cava. Normal retroperitoneum. Normal urinary bladder. Normal visualized prostate gland. Normal abdominal wall. Normal osseous structures. CT/Abdomen/Pelvis without Cont IMPRESSION: Acute uncomplicated appendicitis Electronically Signed: Killian Crooks DO at 12:00 EST Tel , Service support ,
[2019-10-08] MEDS: Ondansetron 4 MG/2 ML Vial IV (10:51)
[2019-10-08] MEDS: morphine 8 MG/ML Syringe IV (10:52)
[2019-10-08 11:05] LABS: Bacteria 0 SEEN /hpf (None Seen); Mucous, Urine 0 SEEN /hpf (<or=2+); Red Blood Cells-Urine 0 SEEN /hpf (0-5); Squamous Epithelial Cells - UA 0 SEEN /hpf (0-5); White Blood Cells 0 SEEN /hpf (0-5)
[2019-10-08 11:08] LABS: Color, Urine Yellow (Yellow); Glucose, Dipstick 1000 mg/dl (Normal); Ketone-Dipstick Negative (Negative); Leukocyte Esterase-Dipstick Negative /ul (Negative); Nitrite-Dipstick Negative (Negative); Occult Blood-Urine 10 /ul (Negative); Protein-Dipstick 15 mg/dl (Negative); Specific Gravity, Urine 1.015 (1.002-1.030); Urine Bilirubin Dipstick Negative (Negative); Urine Clarity Clear (Clear); Urine Urobilinogen Normal (Normal)
[2019-10-08 11:09] LABS: Absolute Lymphocyte Count 0.89 X10^3/uL (0.83-4.51); Absolute Neutrophil Count 7.6 X10^3/uL (2.0-7.7); Basophil# 0.03 X10^3/uL; Basophil% 0.3 % (0-1); Eosinophil# 0.06 X10^3/uL; Eosinophils% 0.7 % (0-5); Hematocrit 31.4 % (40-54); Hemoglobin 11.1 g/dL (13.0-16.5); Lymphocyte # 0.89 X10^3/ul (4.0); Lymphocyte % 9.7 % (19-41); Mean Corp Hgb Conc 35.4 g/dL (32-36); Mean Corpuscular Hgb 27.5 pg (27.0-32.0); Mean Corpuscular Volume 77.9 fL (80-94); Mean Platelet Vol. 9.1 fl (6.2-12.0); Monocyte# 0.61 X10^3/uL; Monocyte% 6.6 % (0-10); NRBC Flagged by Analyzer 0 % (0-5); Neutrophil # 7.57 X10^3/uL (2.7-7.7); Neutrophil % 82.3 % (47-70); Platelet Count 155 K/mm3 (150-450); RBC Distribution Width CV 12.5 % (11.6-14.6); RBC Distribution Width SD 34.8 fl (35.1-43.9); Red Blood Count 4.03 M/mm3 (4.6-6.2); White Blood Count 9.2 K/mm3 (4.4-11.0)
[2019-10-08 11:27] LABS: ALB/GLOB Ratio 1.2 RATIO (0.9-2.4); AST(SGOT) 10 U/L (15-37); Alanine Aminotransfer ALT/SGPT 20 U/L (16-61); Albumin, Serum 3.9 g/dL (3.2-5.0); Alkaline Phosphatase 130 U/L (45-117); Anion Gap 5 (5-15); BUN 35 mg/dL (7-18); BUN/Creat Ratio 14.2 RATIO (10-20); Calcium,Total 9.1 mg/dL (8.5-10.1); Chloride 103 mmol/L (98-107); Creatinine, Serum 2.47 mg/dL (0.70-1.30); EST Glomerular Filtration Rate 31 mL/min (>60); Est Glom Filt Rate - Afr Amer 37 mL/min (>60); Globulin 3.2 g/dL (2.2-4.2); Glucose 328 mg/dL (74-106); Lipase 216 U/L (73-393); Potassium 4.1 mmol/L (3.5-5.1); Protein, Total 7.1 g/dL (6.4-8.2); Sodium Level 135 mmol/L (136-145)
--- NOTE | 2019-10-08 13:24 | HP.PCM_ITS ---
History and Physical Date of Admission: 10/08/19 CC: abdominal pin History of present illness: Delmer Figueroa is a 39 y/o WM who presents with complaint of lower abdominal pain since last night. Denies previous such abdominal pain. Presented to ED at [facility] Labs - WBC is 9.2 with left shift of differential, hgb is 11.1, plt 155k, creat is 2.47 (last recorded was 1.9) CT scan - wall thickening and periappendiceal fat stranding without abscess or perforation compatible with acute uncomplicated appendicitis PAST MEDICAL HISTORY: Chronic Systolic Chf (Congestive Heart Failure) (Hcc) Dilated Cardiomyopathy (Hcc) Pericardial Effusion Pulmonary Hypertension (Hcc) Valvular Insufficiency Essential Hypertension Type 2 Diabetes Mellitus Without Complication, Without Long-Term Current Use of Insulin (Hcc) Hyperlipidemia Chronic Renal Impairment Ascvd (Arteriosclerotic Cardiovascular Disease) PAST SURGICAL HISTORY: ear tubes cardiac catheterization MEDICATIONS: ? glimepiride (AMARYL) 4 mg tablet TAKE 2 TABLETS BY MOUTH ONCE DAILY WITH BREAKFAST ? hydrALAZINE (APRESOLINE) 25 mg tablet Take 1 tablet by mouth three times daily. ? dulaglutide (TRULICITY) 0.75 mg / 0.5 ml subcutaneous pen injector Inject 0.75 mg subcutaneously one time a week. ? atorvastatin (LIPITOR) 40 mg tablet Take 1 tablet by mouth daily at bedtime. For cholesterol. ? carvedilol (COREG) 25 mg tablet Take 1 tablet by mouth twice daily. ? ferrous sulfate 325 mg (65 mg iron) tablet Take 1 tablet by mouth twice daily. ? fluticasone (FLONASE) 50 mcg/actuation nasal spray Use 2 Sprays in each nostril once daily. Rinse mouth after use. ? aspirin, enteric coated (ASPIRIN, ENTERIC COATED) 81 mg EC tablet Take 1 tablet by mouth once daily. ? ascorbic acid, vitamin C, (VITAMIN C) 500 mg tablet Take 1,000 mg by mouth once daily. ? multivitamin (MULTIPLE VITAMINS) tablet Take 1 tablet by mouth once daily. ALLERGIES: victoza, lisinopril Review of Systems: General - denies fevers Cardiovascular denies chest pain Pulmonary denies coughing up blood Gastrointestinal as per HPI Neurological denies seizures Genitourinary denies blood in urine Hematological denies spontaneous/prolonged bleeding Skin has right diabetic ulcer of toe Musculoskeletal no new muscle disorder Endocrine has diabetes - poorly controlled Psychological denies hallucinations Physical examination: Vital signs Temp 98.8F BP 182/95 RR 16 HR 124 Ht: 5'7 Wt: 200# General WD/WN WM in no apparent distress, alert and oriented, not septic appearing HEENT Normocephalic. EOM intact with sclera clear and no icterus noted. Neck is supple with no jugular venous distention noted. Trachea is midline. Lungs normal breath sounds . No rales/rhonchi/wheezing noted. No labored breathing noted, such as retractions. No cough heard. Heart normal heart sounds Abdomen soft and benign. tender in lower abdomen, no peritoneal signs, difficult to determine if any masses due to body habitus. Extremities no calf tenderness or swelling noted. No pitting edema noted. No obvious deformity noted. Genitourinary/Rectal deferred Skin right toe diabetic ulcer, normal skin integrity. Neurological non focal. Psychological normal affect, patient is calm and appropriate IMPRESSION: appendicitis by CT scan PLAN; I have offered laparoscopic appendectomy. I have explained the procedure to the patient. I have explained the risks of surgery, including but not limited to: infection, bleeding, injury to any intraabdominal organs, injury to bowel/bladder, injury to any blood vessels/nerves, intraabdominal abscess/bleeding, trocar hernias, wound infection, etc. - he understands. He wishes to proceed. I have answered all his questions and he has no further questions.
--- NOTE | 2019-10-08 15:00 | APP_PTH ---
PATIENT: JACINDA WELSH LOC: [facility] [place] U#:[id number] AGE/SX: 39/M ROOM: RE10/08/[address]: Dr. Scarlett Castillo MD : 1980 BED: DIS: 10/08/2019 SPEC #: [id number] RECD: 10/10/19 13:25 STATUS: CAMILLA YARITZA #: [id number] STANLEY: 10/08/19 15:[address]: Scarlett Castillo DEPT: SURGICAL PATHOLOGY RECD BY: Ludwin Martinez ENTERED: 10/10/19 14:49 SP TYPE: APPENDIX OTHR DR: Dr. Vicente Jang MD Tissues: Appendix, NOS Procedures: Surgery Specimen Level III HEADER OPERATION: Laparoscopic appendectomy PRE-OP DIAGNOSIS: Appendicitis TISSUE SUBMITTED: Appendix MICROSCOPIC DIAGNOSIS Appendix, appendectomy: Acute appendicitis and periappendicitis. SJ:drake 10/11/19 MICROSCOPIC DESCRIPTION Slides are reviewed. GROSS DESCRIPTION Received is one container labeled with the patient's name and designated appendix. The specimen consists of an appendix measuring 7 cm in length and 0.3 to 1.2 cm in diameter. The distal 4 cm portion of the appendix measures only 0.3 cm in diameter. The rest of the proximal portion measures 1 to 1.2 cm in greatest dimension. The serosa is congested. No obvious perforation is identified. The lumen contains hemorrhagic material. No fecalith is identified. The entire specimen is submitted in two cassettes. / MARINA:drake 10/10/19 TC: 2 CPT: 51366
[2019-10-08] MEDS: Bupiv/Epi 0.5% Mpf 30 ML Vial (15:30)
--- NOTE | 2019-10-08 15:40 | OP.PCM_ITS ---
Report of Operation Date of Procedure: 10/08/19 Pre-Operative Diagnosis: acute appendicitis by CT scan Post-Operative Diagnosis: acute appendicitis Surgery/Procedure Performed:: laparoscopic appendectomy Description of Surgical Findings:: slightly retrocecal - appendix at level of umbilicus due to patient's ptotic abdomen Type of Anesthesia:: General Anesthesiologist: Cortney Stapleton Specimen's removed: appendix Drains: none Estimated Blood Loss (mL): 20 ml Fluids Replaced: 500 ml RL Description of Procedure: After informed consent was obtained, the patient was brought into the operating room. Appropriate time out followed. he was then placed in the supine position on the operating table. The patient was then placed under general anesthesia. The patient?s abdomen was then prepped with a sterile surgical skin preparation and sterile surgical drapes were placed. The infraumbilical skin fold was grasped with penetrating clamps and the skin and subcutaneous tissues were infiltrated with 0.25% marcaine with epinephrine. A skin incision was then made. A Veress needle was then inserted into the intraabdominal cavity and checked to be in the proper position with a normal saline drop test. A CO2 pneumoperitoneum was then created. Once this was achieved, the Veress needle was removed and a 5 mm trocar was placed in its stead. A 5 mm laparoscope was then inserted into the trocar. Careful examination of the intraabdominal contents was then done. There was no evidence of injury to any internal organs from placement of the Veress needle or the trocar. Under direct visualization, a 12mm suprapubic trocar and a 5mm left lower quadrant trocar was then placed into the intraabdominal cavity. The skin and subcutaneous tissues at these sites were first infiltrated with 0.25% marcaine with epinephrine. Attention was then directed to the right lower quadrant. The patient had a large amount of intraabdominal fat. The appendix was visualized but was in a higher location then estimated - this is because of the patient's ptotic abdominal wall. Ther efore another 5 mm trocar was placed superior to the umbilical dimple for better trocar and camera positioning. The mesentery of the appendix was taken down by cauterizing the tissue from the free edge to the base of the appendix with the Harmonic scalpel. Once the base of the appendix was freed of surrounding tissues, then the linear gastrointestinal stapling device was brought into the abdominal cavity via the 12mm port and placed across the base of the appendix. The stapling device was fired, thus stapling across the base of the appendix and transecting it simultaneously. The appendix was then placed in an Endobag and this was brought out through the suprapubic trocar. There was a tip of the appendix that was noted - very small remnant - it was densely adherent to scar tissue and therefore cauterized with the Harmonic scalpel as it could not be removed easily. The appendix was then forwarded to Pathology for analysis. The appendiceal stump was carefully examined. There was no evidence of any active bleeding or fecal leakage. The surrounding tissues were also examined and there was no evidence of any active bleeding or fecal/bile leakage. The intraabdominal cavity was examined and there was no evidence of further inflammation or tissue abnormality. There was no evidence of any peritoneal fluid. The CO2 pneumoperitoneum was released and all trocars were removed int act. The suprapubic fascia was reapproximated with a figure-of-8 vicryl suture. All skin incisions were reapproximated with monocryl suture. Cavilon and steristrips were applied to reinforce skin closure and proper sterile dressings were placed. The patient was then extubated and brought to the Recovery Room in stable condition. - Complications none noted - Admit VTE Documentation VTE Present on Admission: Yes VTE Mechan Device Prophylaxis: SCD's
--- NOTE | 2019-10-08 15:49 | PCM.DC.APPY ---
Discharge Diet: No Restrictions - avoid carbonated beverages for a few days drink plenty of water Discharge Activity: Return to Normal Activity, May not drive while taking narcotic pain medications. Lifting Restrictions: no lifting greater than 20 pounds for 2 weeks Call your doctor if your incision/area has: Continuous Slow Oozing, Foul Smelling Discharge Call your doctor if you observe: Fever of 101 or Higher Additional Dressing/Incision Instructions:: Leave dressing in place. May get wet in shower. Do not soak- no tub baths/swimming Medications to take at Discharge aspirin 81 mg tablet,delayed release 81 mg PO QDAY tab 11/04/17 atorvastatin 40 mg tablet 40 mg PO QDAY 11/04/17 carvedilol 25 mg tablet 25 mg PO BID 11/04/17 ascorbic acid (vitamin C) 500 mg capsule 500 mg PO DAILY ea 11/05/17 Ferrous Sulfate 325 mg PO BIDCM #90 tab 12/02/17 Glimepiride [Amaryl] 8 mg PO DAILY #30 tab 12/02/17 fluticasone propionate 50 mcg/actuation nasal spray,suspension 2 spray INTRANASAL QDAY 02/25/18 hydralazine 25 mg tablet 25 mg PO TID #90 tab 02/25/18 furosemide 40 mg tablet 40 mg PO DAILY #135 tab 10/05/19 Dulaglutide [Trulicity] 0.5 ml SUBCUT QWEEK 10/08/19 Hydrocodone Bitart/Apap 5-325 [[place] 5MG-325MG] 1 tablet PO Q6H PRN PRN 5 Days #20 tablet 10/08/19 Allergies/Adverse Reactions: Allergies liraglutide [From Victoza] Allergy (Verified 10/08/19 10:04) Other lisinopril Allergy (Verified 10/08/19 10:04) Other AFFECTED MY KIDNEYS The following prescriptions were given: Hydrocodone Bitart/Apap 5-325 [[place] 5MG-325MG] 1 tablet PO Q6H PRN PRN 5 Days #20 tablet PRN Reason: Pain Transmission Status: Sent to [id number] Primary Care Physician: Vicente Jang MD [Primary Care Provider] - Test Results: Test results from this visit will be discussed in further detail at your follow-up appointment, if applicable. Please Follow Up With: Scarlett Castillo MD - call When: to be seen in 1-2 weeks, please call for date and time, thank you
[2019-10-08] MEDS: 0.9% Normal Saline 1,000 ML 1000 ML IV (15:54)
[2019-10-08 15:55] LABS: Bedside Glucose 234 mg/dL (70-110)
== END 2019-10-08 17:07 | disposition home or self-care (01) ==
LOC: ED 11:46 → SDC 14:09
PROVIDERS: Emergency Provider Emergency Medicine; PCP Internal Medicine; Visit Provider Surgery
PROC: 0DTJ4ZZ Resection of Appendix, Percutaneous Endoscopic Approach (ICD-10-PCS; CPT 44970; principal; 2019-10-08 15:00)
DX: K35.80 Unspecified acute appendicitis (principal); I50.22 Chronic systolic (congestive) heart failure; E78.5 Hyperlipidemia, unspecified; E11.22 Type 2 diabetes mellitus with diabetic chronic kidney disease; I13.0 Hypertensive heart and chronic kidney disease with heart failure and stage 1 through stage 4 chronic kidney disease, or unspecified chronic kidney disease; N18.9 Chronic kidney disease, unspecified; I27.20 Pulmonary hypertension, unspecified; I25.10 Atherosclerotic heart disease of native coronary artery without angina pectoris; I42.0 Dilated cardiomyopathy; Z79.899 Other long term (current) drug therapy; Z79.84 Long term (current) use of oral hypoglycemic drugs; E11.621 Type 2 diabetes mellitus with foot ulcer; L97.519 Non-pressure chronic ulcer of other part of right foot with unspecified severity; Z79.82 Long term (current) use of aspirin
CPT/HCPCS: 00840; 44970; 74176; 80053; 81001; 82962; 83690; 85025; 88304; 99284; J7030; J7040; A4216; J2405

== ENCOUNTER → 2019-10-18 15:12 | Outpatient (CLI) | payer OTHER, SELFPAY ==
[2019-09-29 11:12] VITALS: BMI 31.1
[2019-10-08 12:46] VITALS: BMI 31.1
--- NOTE | 2019-10-18 15:12 | ECHOD_ITS ---
Reason For Study: DYSPNEA Procedure This was a 2D Doppler, Color Flow transthoracic echocardiogram. The exam was of adequate technical quality. Exam performed in department. Left Ventricle Normal LV size. Left ventricular systolic function is normal. The estimated ejection fraction is 55 %. Diastolic function is indeterminate. No regional wall motion abnormalities noted. Right Ventricle Normal RV size. Normal systolic function. Atria Normal left atrium. Normal right atrium. No doppler evidence for ASD. Mitral Valve There is mild mitral annular calcification. Mild diffuse mitral valve thickening. Moderate (2+) mitral valve insufficiency. Tricuspid Valve Normal tricuspid valve. Trivial tricuspid valve insufficiency. Right ventricular systolic pressure estimated to be 32 mmHg. Aortic Valve Trisinus/trileaflet aortic valve. Normal aortic valve. Pulmonic Valve The pulmonic valve is not well visualized. Trivial pulmonic valve insufficiency. Great Vessels Normal sized aortic root. Pericardium/Pleural Trivial pericardial effusion. There are no echocardiographic indications of cardiac tamponade. MMode/2D Measurements & Calculations LVIDd: 5.3 cm IVSd: 1.0 cm Ao root diam: 3.3 cm LVIDs: 3.9 cm LVPWd: 0.95 cm RVDd: 3.4 cm FS: 26.1 % LAV(MOD-bp): 55.2 ml LA A4 area: 19.5 cm2 LA dimension(2D): 3.9 cm LAV(MOD-bp) Indexed: 27.4 ml/m2 LAV(MOD-sp2): 47.3 ml LAV(MOD-sp4): 53.7 ml RA A4 area: 14.2 cm2 Time Measurements MV dec time: 0.19 sec Doppler Measurements & Calculations MV E max manuel: 88.0 cm/sec Lat Peak E' Manuel: 9.4 cm/sec Med Peak E' Manuel: 5.7 cm/sec MV A max manuel: 99.3 cm/sec E/E' lat: 9.3 E/E' med: 15.3 MV E/A: 0.89 Ao V2 max: 131.1 cm/sec LV V1 max: 71.4 cm/sec PA V2 max: 94.9 cm/sec Ao max P.9 mmHg LV V1 max P.0 mmHg TR max manuel: 269.3 cm/sec TR max P.0 mmHg Interpretation Summary Left ventricular systolic function is normal. The estimated ejection fraction is 55 %. There is mild mitral annular calcification. Mild diffuse mitral valve thickening. Moderate (2+) mitral valve insufficiency. Trivial tricuspid valve insufficiency. Trivial pulmonic valve insufficiency. Trivial pericardial effusion. There are no echocardiographic indications of cardiac tamponade. Right ventricular systolic pressure estimated to be 32 mmHg. Diastolic function is indeterminate. Ordering Physician: Ephraim Vallecillo/Augusto Murphy Referring Physician: Vicente Jang M.D. Performed By: Philomena Mccrary, NEISHA, RVT
== END ==
PROVIDERS: PCP Internal Medicine; Referring Provider Nurse Practitioner Family; Visit Provider Nurse Practitioner Family
DX: I10 Essential (primary) hypertension (principal); I25.10 Atherosclerotic heart disease of native coronary artery without angina pectoris; I42.9 Cardiomyopathy, unspecified; I27.20 Pulmonary hypertension, unspecified; I34.0 Nonrheumatic mitral (valve) insufficiency; R06.09 Other forms of dyspnea
CPT/HCPCS: 93306

== ENCOUNTER → 2019-11-03 14:37 | Outpatient (CLI) | payer OTHER, SELFPAY ==
[2019-10-08 12:46] VITALS: BMI 31.1
[2019-11-03 17:35] LABS: Protein:Creat Ratio 284 mg/g CRE (0-200)
== END ==
LOC: POLAB3 14:37 → LABSPEC 14:38
PROVIDERS: PCP Internal Medicine; Visit Provider Internal Medicine Nephrology
DX: N18.3 Chronic kidney disease, stage 3 (moderate) (principal)
CPT/HCPCS: 82570; 84156

== ENCOUNTER → 2019-11-12 11:36 | Outpatient (CLI) | payer OTHER, SELFPAY ==
[2019-10-08 12:46] VITALS: BMI 31.1
[2019-11-12 12:20] LABS: Anion Gap 6 (5-15); BUN 28 mg/dL (7-18); BUN/Creat Ratio 14.4 RATIO (10-20); Calcium,Total 8.3 mg/dL (8.5-10.1); Chloride 111 mmol/L (98-107); Creatinine, Serum 1.94 mg/dL (0.70-1.30); EST Glomerular Filtration Rate 41 mL/min (>60); Est Glom Filt Rate - Afr Amer 49 mL/min (>60); Glucose 187 mg/dL (74-106); Potassium 4.3 mmol/L (3.5-5.1); Sodium Level 142 mmol/L (136-145)
== END ==
PROVIDERS: PCP Internal Medicine; Referring Provider Internal Medicine Nephrology; Visit Provider Internal Medicine Nephrology
DX: N18.3 Chronic kidney disease, stage 3 (moderate) (principal)
CPT/HCPCS: 36415; 80048

== ENCOUNTER → 2019-12-10 11:02 | Outpatient (CLI) | payer OTHER, SELFPAY ==
[2019-10-08 12:46] VITALS: BMI 31.1
[2019-12-10 11:31] LABS: Hematocrit 32.8 % (40-54); Hemoglobin 11.1 g/dL (13.0-16.5); Mean Corp Hgb Conc 33.8 g/dL (32-36); Mean Corpuscular Hgb 27.8 pg (27.0-32.0); Mean Platelet Vol. 8.7 fl (6.2-12.0); Platelet Count 171 K/mm3 (150-450); RBC Distribution Width CV 13.5 % (11.6-14.6); RBC Distribution Width SD 39.8 fl (35.1-43.9); White Blood Count 6.3 K/mm3 (4.4-11.0)
[2019-12-10 11:52] LABS: Albumin, Serum 3.8 g/dL (3.2-5.0); BUN 29 mg/dL (7-18); BUN/Creat Ratio 14.5 RATIO (10-20); Calcium,Total 8.4 mg/dL (8.5-10.1); Chloride 110 mmol/L (98-107); EST Glomerular Filtration Rate 39 mL/min (>60); Est Glom Filt Rate - Afr Amer 47 mL/min (>60); Glucose 141 mg/dL (74-106); Phosphorus 3.7 mg/dL (2.5-4.9); Potassium 4.5 mmol/L (3.5-5.1); Sodium Level 142 mmol/L (136-145)
[2019-12-12 08:48] LABS: PTHIN 226.5 pg/mL (18.4-80.1)
== END ==
PROVIDERS: PCP Internal Medicine; Referring Provider Internal Medicine Nephrology; Visit Provider Internal Medicine Nephrology
DX: N18.3 Chronic kidney disease, stage 3 (moderate) (principal)
CPT/HCPCS: 36415; 80069; 83970; 85027

== ENCOUNTER → 2019-12-24 10:45 | Outpatient (CLI) | payer OTHER, SELFPAY ==
[2019-10-08 12:46] VITALS: BMI 31.1
[2019-12-26 11:32] LABS: PTHIN 120.9 pg/mL (18.4-80.1)
== END ==
PROVIDERS: PCP Internal Medicine; Referring Provider Internal Medicine Nephrology; Visit Provider Internal Medicine Nephrology
DX: N18.3 Chronic kidney disease, stage 3 (moderate) (principal); N25.81 Secondary hyperparathyroidism of renal origin
CPT/HCPCS: 36415; 83970

== ENCOUNTER → 2020-01-28 11:59 | Outpatient (CLI) | payer OTHER, SELFPAY ==
[2019-10-08 12:46] VITALS: BMI 31.1
[2020-01-28 12:26] LABS: Hematocrit 32.7 % (40-54); Mean Corp Hgb Conc 33.6 g/dL (32-36); Mean Corpuscular Hgb 27.1 pg (27.0-32.0); Mean Corpuscular Volume 80.5 fL (80-94); Mean Platelet Vol. 9.1 fl (6.2-12.0); Platelet Count 153 K/mm3 (150-450); RBC Distribution Width CV 13.3 % (11.6-14.6); RBC Distribution Width SD 38.5 fl (35.1-43.9); Red Blood Count 4.06 M/mm3 (4.6-6.2); White Blood Count 5.8 K/mm3 (4.4-11.0)
[2020-01-28 12:42] LABS: Hemoglobin A1c 5.9 % (4.2-6.3)
[2020-01-30 08:46] LABS: PTHIN 210.5 pg/mL (18.4-80.1)
== END ==
PROVIDERS: PCP Internal Medicine; Referring Provider Internal Medicine; Visit Provider Internal Medicine
DX: E11.22 Type 2 diabetes mellitus with diabetic chronic kidney disease (principal); N18.4 Chronic kidney disease, stage 4 (severe); N25.81 Secondary hyperparathyroidism of renal origin; Z11.4 Encounter for screening for human immunodeficiency virus [HIV]
CPT/HCPCS: 36415; 83036; 83970; 85027

== ENCOUNTER 2020-03-12 18:58 | Emergency (ER) | payer OTHER, SELFPAY ==
[2019-10-08 12:46] VITALS: BMI 31.1
[2020-03-12 18:59] VITALS: BP 183/83; PULSE 82; RESP 19; TEMP 36.7; O2SAT 98; BMI 31.1
--- NOTE | 2020-03-12 20:37 | EKG12_ITS ---
Test Reason : DIZZINESS Blood Pressure : / mmHG Vent. Rate : 076 BPM Atrial Rate : 076 BPM P-R Int : 138 ms QRS Dur : 100 ms QT Int : 390 ms P-R-T Axes : 030 032 053 degrees QTc Int : 438 ms Normal sinus rhythm Normal ECG Confirmed by RUDI SÁNCHEZ ([id number]), health editor YOUSIF DAILEY ([id number]) on 03/15/2020 11:51:38 AM Referred By: NIKOLAS Confirmed By:RUDI SÁNCHEZ
--- NOTE | 2020-03-12 20:38 | ED.DCSUM_ITS ---
History of Present Illness Chief Complaint: Dizziness Informant: Patient Onset: Yesterday Current Severity: Moderate Maximum Severity: Moderate Narrative: Patient present secondary to dizziness and not feeling well. He states lightheadedness started yesterday and is constant. He states he had some memory loss yesterday is not really able to tell if is improved today or not. He is worried about his kidneys because he does not feel like he is urinating enough. He does have some mild abdominal pain. No recent medication changes. No fever or chills. He has had prior appendectomy. - Past Medical History (1) Atherosclerotic heart disease of [place] coronary artery without angina pectoris Status: Chronic Comment: chronically occluded LAD and RCA with good collaterals (2) CKD (chronic kidney disease) stage 3, GFR 30-59 ml/min Status: Chronic (3) Cardiomyopathy Status: Chronic (4) Essential hypertension Status: Chronic (5) Pericardial effusion Status: Chronic (6) Pulmonary hypertension Status: Chronic (7) Systolic CHF Status: Chronic Past Medical History - Allergies and Home Meds Allergies/Adverse Reactions: Allergies liraglutide [From Victoza] Allergy (Verified 03/12/20 19:01) Other lisinopril Allergy (Verified 03/12/20 19:01) Other AFFECTED MY KIDNEYS Primary Care Physician: Vicente Jang MD [Primary Care Provider] - Prior records reviewed: Yes Surgical History: - - tube placements in ears as child, tonque clipped as Lives: Spouse/ Significant Other Smoking Status: Never smoker - Family History Paternal Family History: Family History (Last Reviewed 02/25/18 @ 13:59 by Leticia Perrin) Father Heart disease Grandmother Heart disease Diabetes Grandfather Diabetes Family History: Reports: Heart Disease Maternal Family History: Family History (Last Reviewed 02/25/18 @ 13:59 by Leticia Perrin) Father Heart disease Grandmother Heart disease Diabetes Grandfather Diabetes Family History: Reports: No pertinent history Review of Systems General: Denies: Chills, Fever Eyes: Denies: Visual changes - bilaterally ENT: Denies: Bilateral ear pain Cardiovascular: Denies: Chest pain, Palpitations Respiratory: Denies: Dyspnea, Cough Gastrointestinal: Reports: Abdominal pain. Denies: Nausea, Vomiting, Diarrhea Genitourinary: Reports: - - Decreased urine output. Denies: Dysuria Musculoskeletal: Denies: Swelling, Extremity Pain Neurological: Denies: Headache Hematologic: Denies: Easy bruising, Easy bleeding Allergy: Denies: Uticaria Physical Exam Vital Signs/Narrative: Vital Signs Temp Pulse Resp BP Pulse Ox 03/12/20 18:59 98.1 F 82 19 H 183/83 H 98 Inital Vital Signs reviewed: Yes General: Well nourished, Well developed Head: Normocephalic ENT: Moist mucous membranes Neck: Supple Cardiovascular: Regular rate, Regular rhythm Respiratory: No distress, CTA bilaterally Abdomen: Soft, Normal bowel sounds, Tender - Mild upper abdominal tenderness.. Negative for: Guarding, Rebound tenderness Extremities: Nontender Skin: Normal color Neurological: Alert, Oriented x3, Normal Strength, Normal Sensation Psychological: Normal affect Diagnostic/Tx/Re-eval Laboratory Results 03/12/20 03/12/20 03/12/20 20:15 20:15 20:55 WBC 7.2 RBC 3.70 L Hgb 10.4 L Hct 30.6 L MCV 82.7 MCH 28.1 MCHC 34.0 RDW Std Deviation 39.9 RDW Coeff of [place] 13.6 Plt Count 165 MPV 9.0 Immature Gran % (Auto) 0.300 Neut % (Auto) 66.0 Lymph % (Auto) 24.7 [place] % (Auto) 6.7 Eos % (Auto) 1.9 Baso % (Auto) 0.4 Absolute Neuts (auto) 4.8 Absolute Lymphs (auto) 1.78 Nucleated RBC % 0 Sodium 142 Potassium 4.0 Chloride 110 H Carbon Dioxide 26.0 Anion Gap 6 BUN 37 H Creatinine 2.45 H Estim Creat Clear Calc 36.72 Est GFR (MDRD) Af Amer 38 L Est GFR (MDRD) Non-Af 31 L BUN/Creatinine Ratio 15.1 Glucose 118 H Calcium 8.6 Total Bilirubin 0.60 Direct Bilirubin 0.20 AST 15 ALT 21 Alkaline Phosphatase 94 Total Protein 7.3 Albumin 4.0 Globulin 3.3 Lipase 189 Urine Color Yellow Urine Clarity Clear Urine pH 5.0 Ur Specific [place] 1.020 Urine Protein 30 H Urine Glucose (UA) Normal Urine Ketones Negative Urine Occult Blood Negative Urine Nitrite Negative Urine Bilirubin Negative Urine Urobilinogen Normal Ur Leukocyte Esterase Negative Urine RBC 0 SEEN Urine WBC 0 SEEN Ur Squamous Epith Cells 0 SEEN Urine Bacteria 0 SEEN Urine Mucus 0 SEEN - EKG Initial EKG Interpretation: Sinus Rhythm - Sinus at 76 with no acute ischemia. - Medical Decision Making Patient was given IV fluids here. Test results are discussed with him. On review of records from the past 2 years it appears that his creatinine has ranged from 1.9-2.6. His creatinine is 2.45 tonight. He was given some fluids to help flush his kidneys. He will monitor his symptoms at home. His blood pressure is running high tonight, but he states he is due for his medication. believes he overdid it last week as a head several things scheduled in the evenings and he was working more hours than normal. Patient will continue to monitor his symptoms and return for worsened symptoms or concerns. ED Disposition - Plan for ED Patient: Disposition: Home or Assisted Living Diagnosis: Dizziness Instructions: ED Dizziness [facility] Referrals: Vicente Jang MD [Primary Care Provider] - 1 Week if not improving
[2020-03-12 21:01] VITALS: BP 181/86; PULSE 73; RESP 16; O2SAT 99
[2020-03-12 21:08] LABS: Bacteria 0 SEEN /hpf (None Seen); Mucous, Urine 0 SEEN /hpf (<or=2+); Red Blood Cells-Urine 0 SEEN /hpf (0-5); Squamous Epithelial Cells - UA 0 SEEN /hpf (0-5); White Blood Cells 0 SEEN /hpf (0-5)
[2020-03-12 21:16] LABS: Absolute Lymphocyte Count 1.78 X10^3/uL (0.83-4.51); Absolute Neutrophil Count 4.8 X10^3/uL (2.0-7.7); Basophil# 0.03 X10^3/uL; Basophil% 0.4 % (0-1); Eosinophil# 0.14 X10^3/uL; Eosinophils% 1.9 % (0-5); Hematocrit 30.6 % (40-54); Hemoglobin 10.4 g/dL (13.0-16.5); Lymphocyte # 1.78 X10^3/ul (4.0); Lymphocyte % 24.7 % (19-41); Mean Corpuscular Hgb 28.1 pg (27.0-32.0); Mean Corpuscular Volume 82.7 fL (80-94); Monocyte# 0.48 X10^3/uL; Monocyte% 6.7 % (0-10); NRBC Flagged by Analyzer 0 % (0-5); Neutrophil # 4.76 X10^3/uL (2.7-7.7); Platelet Count 165 K/mm3 (150-450); RBC Distribution Width CV 13.6 % (11.6-14.6); RBC Distribution Width SD 39.9 fl (35.1-43.9); White Blood Count 7.2 K/mm3 (4.4-11.0)
[2020-03-12 21:16] LABS: Color, Urine Yellow (Yellow); Glucose, Dipstick Normal (Normal); Ketone-Dipstick Negative (Negative); Leukocyte Esterase-Dipstick Negative /ul (Negative); Nitrite-Dipstick Negative (Negative); Occult Blood-Urine Negative /ul (Negative); Protein-Dipstick 30 mg/dl (Negative); Urine Bilirubin Dipstick Negative (Negative); Urine Clarity Clear (Clear); Urine Urobilinogen Normal (Normal)
[2020-03-12 21:21] LABS: AST(SGOT) 15 U/L (15-37); Alanine Aminotransfer ALT/SGPT 21 U/L (16-61); Alkaline Phosphatase 94 U/L (45-117); Anion Gap 6 (5-15); BUN 37 mg/dL (7-18); BUN/Creat Ratio 15.1 RATIO (10-20); Calcium,Total 8.6 mg/dL (8.5-10.1); Chloride 110 mmol/L (98-107); Creatinine, Serum 2.45 mg/dL (0.70-1.30); EST Glomerular Filtration Rate 31 mL/min (>60); Est Glom Filt Rate - Afr Amer 38 mL/min (>60); Estimated Creatinine Clearance 36.72 ml/min; Globulin 3.3 g/dL (2.2-4.2); Glucose 118 mg/dL (74-106); Lipase 189 U/L (73-393); Protein, Total 7.3 g/dL (6.4-8.2); Sodium Level 142 mmol/L (136-145)
[2020-03-12] MEDS: 0.9% Normal Saline 1,000 ML 150 ML IV (21:53)
[2020-03-12 23:09] VITALS: BP 193/92; PULSE 75; RESP 16; O2SAT 100
== END 2020-03-12 23:11 | disposition home or self-care (01) ==
PROVIDERS: Emergency Provider Emergency Medicine; PCP Internal Medicine
DX: R42 Dizziness and giddiness (principal); I25.10 Atherosclerotic heart disease of native coronary artery without angina pectoris; I13.0 Hypertensive heart and chronic kidney disease with heart failure and stage 1 through stage 4 chronic kidney disease, or unspecified chronic kidney disease; N18.3 Chronic kidney disease, stage 3 (moderate); Z79.82 Long term (current) use of aspirin
CPT/HCPCS: 80048; 80076; 81001; 83690; 85025; 93005; 99283; J7030; A4216

== ENCOUNTER 2020-03-14 19:30 | Emergency (ER) | payer SELFPAY ==
[2020-03-14 19:31] VITALS: BP 192/92; PULSE 84; RESP 18; TEMP 36.8; O2SAT 98; BMI 31.1
--- NOTE | 2020-03-14 20:05 | EKG12_ITS ---
Test Reason : ABDOMINAL PAIN Blood Pressure : / mmHG Vent. Rate : 074 BPM Atrial Rate : 074 BPM P-R Int : 134 ms QRS Dur : 100 ms QT Int : 392 ms P-R-T Axes : 027 042 055 degrees QTc Int : 435 ms Normal sinus rhythm Normal ECG Confirmed by RUDI SÁNCHEZ ([id number]), avid editor GEOFFREY BARRETO ([id number]) on 03/19/2020 2:05:39 PM Referred By: MARINA Confirmed By:RUDI SÁNCHEZ
--- NOTE | 2020-03-14 20:05 | CT_ITS ---
STUDY: CT BRAIN WITHOUT CONTRAST REASON FOR EXAM: Male, 40 years old. Headache. Dizziness. Memory loss. History of hypertension and diabetes. RADIATION DOSAGE (If Supplied By Facility): CTDIvol = ( 44.99 ) mGy, DLP = ( 829.85 ) mGycm TECHNIQUE: Transaxial CT imaging of the brain was performed without administration of intravenous contrast material. Individualized dose optimization techniques were used for this CT. COMPARISON: No relevant priors. FINDINGS: Normal soft tissue structures. Normal calvarium. Normal size ventricles and extra-axial spaces for the patient''s age. Normal white matter tracts of the cerebral hemispheres. Normal basal ganglia and thalami. Normal brainstem. Normal cerebellum. There is no intracranial hemorrhage. There are no findings of an acute ischemic infarction. Normal visualized paranasal sinuses. CT/Brain/Head without Contrast IMPRESSION: Normal unenhanced CT scan of the brain. Electronically Signed: Tolu Marr DO at 21:10 EDT Tel [phone], Service support ,
--- NOTE | 2020-03-14 20:06 | CT_ITS ---
STUDY: CT ABDOMEN AND PELVIS WITHOUT CONTRAST REASON FOR EXAM: Male, 40 years old. Headache. Dizziness. Abdominal pain. Memory loss. History of CHF, diabetes hypertension and pulmonary hypertension. Surgical history of appendectomy. RADIATION DOSAGE (If Supplied By Facility): CTDIvol = ( 15.08 ) mGy, DLP = ( 817.52 ) mGycm TECHNIQUE: Transaxial images were obtained from the dome of the diaphragm to the symphysis pubis without oral contrast, and without intravenous contrast. Sagittal and coronal images were reconstructed. Individualized dose optimization techniques were used for this CT. COMPARISON: October 08, 2019. FINDINGS: The visualized lung bases are unremarkable. The visualized portions of the heart are within normal limits. Normal liver. Normal gallbladder and extrahepatic biliary system. There is mild splenomegaly. Normal pancreas. Normal bilateral adrenal glands. Normal right kidney. Normal left kidney. Arm bilateral ureters. Normal visualized stomach. Normal small intestine. Scattered colonic diverticuli without acute inflammatory change. There is no mass or obstruction. There are surgical clips in the region of the appendix consistent with a prior appendectomy. There is diffuse atherosclerotic calcification of the abdominal aorta, without a demonstrated aneurysm. Normal inferior vena cava. Normal retroperitoneum. Normal urinary bladder. Bilateral prostate. There is no pelvic lymphadenopathy or mass. Calcifications are seen in the vas deferens. No free air or free fluid is seen within the abdominal cavity. Normal abdominal wall. Normal osseous structures. CT/Abdomen/Pelvis without Cont IMPRESSION: 1. Interval appendectomy. 2. Stable mild splenomegaly. 3. No acute intra-abdominal process or other interval change. Electronically Signed: Tolu Marr DO at 21:09 EDT Tel [phone], Service support ,
--- NOTE | 2020-03-14 20:25 | ED.VIS.GEN ---
History of Present Illness Chief Complaint: General Illness Informant: Patient, Family Onset: Weeks Current Severity: Mild Maximum Severity: Mild Narrative: The patient has a history of CHF diabetes renal failure He presents reporting those conditions are generally stable, Per patient and the chief complaint is confusional episodes that he is had for 3 to 4 weeks nonspecific intermittent abdominal pain for same etiology of all the above is unclear. 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 it is just expressing himself to others seems more difficult and challenging He also complains of a nonspecific abdominal pain that comes and goes does not affect his life ability eat or drink He has no other complaints Past Medical History - Allergies and Home Meds Allergies/Adverse Reactions: Allergies liraglutide [From Victoza] Allergy (Verified 03/14/20 19:33) Other lisinopril Allergy (Verified 03/14/20 19:33) Other AFFECTED MY KIDNEYS Primary Care Physician: Vicente Jang MD [Primary Care Provider] - Past Medical History: - - Hypertension diabetes renal disease CHF Surgical History: - - tube placements in ears as child, tonque clipped as infant Smoking Status: Never smoker - Family History Paternal Family History: Family History (Last Reviewed 02/25/18 @ 13:59 by Leticia Perrin) Father Heart disease Grandmother Heart disease Diabetes Grandfather Diabetes Family History: Reports: Heart Disease Maternal Family History: Family History (Last Reviewed 02/25/18 @ 13:59 by Leticia Perrin) Father Heart disease Grandmother Heart disease Diabetes Grandfather Diabetes Family History: Reports: No pertinent history Review of Systems General: Denies: Chills, Fever, Sweats Eyes: Denies: Visual changes - bilaterally, Diplopia ENT: Denies: Rhinorrhea, Sore throat Cardiovascular: Denies: Chest pain, Palpitations Respiratory: Denies: Dyspnea, Cough, Dyspnea on exertion Gastrointestinal: Reports: Abdominal pain - [place] problems. Denies: Nausea, Vomiting, Diarrhea, Melena, Hematochezia Genitourinary: Denies: Dysuria, Hematuria, Frequency Musculoskeletal: Denies: Back pain, Extremity Pain Skin: Denies: Rash, Wounds Neurological: Reports: -. Denies: Headache, Weakness, Numbness Physical Exam Vital Signs/Narrative: Vital Signs Temp Pulse Resp BP Pulse Ox 03/14/20 19:31 98.3 F 84 18 192/92 H 98 General: Well nourished, Well developed, No Acute Distress Head: Normocephalic, Atraumatic Eyes: Perrl, EOMI ENT: Moist mucous membranes, No rhinorrhea Neck: Supple, Nontender Cardiovascular: Regular rate, Regular rhythm, No murmurs Respiratory: No distress, CTA bilaterally, Chest nontender Abdomen: Soft, Nontender, Nondistended, Normal bowel sounds Back: Nontender, Normal Inspection Extremities: Nontender, No edema Skin: Normal color, No rash Neurological: Alert, Oriented x3, Cranial nerves II-XII grossly intact, Normal Strength, Normal Sensation Psychological: Normal affect, Normal Mood Diagnostic/Tx/Re-eval - Medical Decision Making The patient is in no distress he is awake and alert answering questions appropriately in the room with him his cognitive functions appears normal, does also intermittently complained of being dizzy but nothing specific and nothing focal he is not dizzy now his NIH is 0 his neck is supple he is moving all 4 extremities he is able to get out of the bed stand walk around the room without difficulty His chief issue is he is able to do his technical work but cannot explain things to clients to the level he was able to do so before He does have renal failure he indicates he is making normal amounts of urine he has no history of any type of cognitive deficit or metabolic condition that causes the above no history of stroke or seizure head trauma Given all the above ED evaluation Patient's ED screening evaluation labs CT head CT abdomen metabolic screens are all generally unremarkable see those reports his creatinine is baseline for him his ammonia level 30 his urinalysis is unremarkable Pain the patient this time given the long duration of his symptoms given the negative ED work-up he will require further management we discussed inpatient versus outpatient is comfortable outpatient management follow-up with his physicians and return for change in symptoms Home stable Impression final intermittent confusion, intermittent abdominal pain, etiology unclear ED Disposition - Plan for ED Patient: Diagnosis: Confusion Instructions: ED Confusion Referrals: Vicente Jang MD [Primary Care Provider] -
[2020-03-14] MEDS: 0.9% Normal Saline 1,000 ML 150 ML IV (20:40)
--- NOTE | 2020-03-14 20:40 | RAD_ITS ---
STUDY: X-RAY CHEST REASON FOR EXAM: Male, 40 years old. Headache. Dizziness. Memory loss. Abdominal pain. TECHNIQUE: Single AP portable view of the chest. COMPARISON: CTA of the chest, October 24, 2017. Chest, October 24, 2017. FINDINGS: The lungs are clear and expanded. There is no demonstrated pleural abnormality. The heart is normal in size. Normal mediastinum and varinder. Normal visualized pulmonary arteries. Normal visualized aortic arch and descending thoracic aorta. Normal visualized thoracic spine. Normal visualized ribs, clavicles, and shoulders. There is no demonstrated abnormality of the visualized soft tissue structures of the upper abdomen. RAD/Chest 1 View (Portable) IMPRESSION: No acute cardiopulmonary disease. There is resolution of the cardiomegaly noted on the previous study. Electronically Signed: Tolu Marr DO at 21:13 EDT Tel [phone], Service support ,
[2020-03-14 20:43] VITALS: O2SAT 99
[2020-03-14 20:49] LABS: Absolute Lymphocyte Count 1.19 X10^3/uL (0.83-4.51); Basophil# 0.02 X10^3/uL; Basophil% 0.4 % (0-1); Eosinophil# 0.13 X10^3/uL; Eosinophils% 2.3 % (0-5); Hematocrit 30.3 % (40-54); Hemoglobin 10.2 g/dL (13.0-16.5); Lymphocyte # 1.19 X10^3/ul (4.0); Mean Corp Hgb Conc 33.7 g/dL (32-36); Mean Corpuscular Hgb 27.6 pg (27.0-32.0); Mean Corpuscular Volume 81.9 fL (80-94); Mean Platelet Vol. 9.1 fl (6.2-12.0); Monocyte# 0.38 X10^3/uL; Monocyte% 6.7 % (0-10); NRBC Flagged by Analyzer 0 % (0-5); Neutrophil # 3.95 X10^3/uL (2.7-7.7); Neutrophil % 69.4 % (47-70); Platelet Count 157 K/mm3 (150-450); RBC Distribution Width CV 13.3 % (11.6-14.6); RBC Distribution Width SD 39.2 fl (35.1-43.9); White Blood Count 5.7 K/mm3 (4.4-11.0)
[2020-03-14 20:49] LABS: Mucous, Urine 0 SEEN /hpf (<or=2+); Red Blood Cells-Urine 0 SEEN /hpf (0-5); Squamous Epithelial Cells - UA 0 SEEN /hpf (0-5); White Blood Cells 0 SEEN /hpf (0-5)
[2020-03-14 21:07] LABS: AST(SGOT) 15 U/L (15-37); Alanine Aminotransfer ALT/SGPT 20 U/L (16-61); Albumin, Serum 3.8 g/dL (3.2-5.0); Alkaline Phosphatase 88 U/L (45-117); Anion Gap 4 (5-15); BUN 35 mg/dL (7-18); BUN/Creat Ratio 16.5 RATIO (10-20); Bilirubin, Direct 0.15 mg/dL (0.00-0.30); Calcium,Total 8.3 mg/dL (8.5-10.1); Chloride 109 mmol/L (98-107); Creatinine, Serum 2.12 mg/dL (0.70-1.30); EST Glomerular Filtration Rate 37 mL/min (>60); Est Glom Filt Rate - Afr Amer 44 mL/min (>60); Estimated Creatinine Clearance 42.44 ml/min; Globulin 3.1 g/dL (2.2-4.2); Glucose 135 mg/dL (74-106); Protein, Total 6.9 g/dL (6.4-8.2); Sodium Level 141 mmol/L (136-145)
[2020-03-14 21:11] LABS: Lactic Acid 0.6 mmol/L (0.4-1.9)
[2020-03-14 21:21] LABS: Color, Urine Yellow (Yellow); Glucose, Dipstick Normal (Normal); Ketone-Dipstick Negative (Negative); Leukocyte Esterase-Dipstick Negative /ul (Negative); Nitrite-Dipstick Negative (Negative); Occult Blood-Urine 25 /ul (Negative); Protein-Dipstick 30 mg/dl (Negative); Urine Bilirubin Dipstick Negative (Negative); Urine Clarity Clear (Clear); Urine Urobilinogen Normal (Normal)
[2020-03-14 21:32] LABS: Bacteria RARE /hpf (None Seen)
[2020-03-14 21:47] VITALS: BP 186/93; PULSE 76; RESP 14; O2SAT 98
== END 2020-03-14 21:58 | disposition home or self-care (01) ==
LOC: ED 20:01
PROVIDERS: Emergency Provider Emergency Medicine; PCP Internal Medicine
DX: R41.0 Disorientation, unspecified (principal); I11.0 Hypertensive heart disease with heart failure; I50.9 Heart failure, unspecified; E11.9 Type 2 diabetes mellitus without complications; Z79.84 Long term (current) use of oral hypoglycemic drugs
CPT/HCPCS: 70450; 71045; 74176; 80048; 80076; 81001; 82009; 82140; 83605; 84484; 85025; 93005; 96360; 99284; J7030

== ENCOUNTER → 2020-03-27 11:38 | Outpatient (CLI) | payer OTHER, SELFPAY ==
[2020-03-14 19:31] VITALS: BMI 31.1
[2020-03-27 12:58] LABS: PTHIN 115.1 pg/mL (18.4-80.1)
== END ==
PROVIDERS: PCP Internal Medicine; Visit Provider Internal Medicine Nephrology
DX: N25.81 Secondary hyperparathyroidism of renal origin (principal)
CPT/HCPCS: 36415; 83970

== ENCOUNTER → 2020-06-30 09:06 | Outpatient (CLI) | payer OTHER, SELFPAY ==
[2020-06-30 10:09] LABS: Absolute Lymphocyte Count 1.03 X10^3/uL (0.83-4.51); Absolute Neutrophil Count 3.2 X10^3/uL (2.0-7.7); Basophil# 0.02 X10^3/uL; Basophil% 0.4 % (0-1); Eosinophils% 2.2 % (0-5); Hematocrit 28.4 % (40-54); Hemoglobin 9.5 g/dL (13.0-16.5); Lymphocyte # 1.03 X10^3/ul (4.0); Lymphocyte % 22.3 % (19-41); Mean Corp Hgb Conc 33.5 g/dL (32-36); Mean Corpuscular Hgb 27.9 pg (27.0-32.0); Mean Corpuscular Volume 83.5 fL (80-94); Mean Platelet Vol. 8.9 fl (6.2-12.0); Monocyte% 6.5 % (0-10); NRBC Flagged by Analyzer 0 % (0-5); Neutrophil # 3.15 X10^3/uL (2.7-7.7); Neutrophil % 68.2 % (47-70); Platelet Count 156 K/mm3 (150-450); RBC Distribution Width CV 13.2 % (11.6-14.6); RBC Distribution Width SD 39.7 fl (35.1-43.9); White Blood Count 4.6 K/mm3 (4.4-11.0)
[2020-06-30 11:03] LABS: Albumin, Serum 3.6 g/dL (3.2-5.0); BUN 31 mg/dL (7-18); BUN/Creat Ratio 13.2 RATIO (10-20); Calcium,Total 8.4 mg/dL (8.5-10.1); Chloride 111 mmol/L (98-107); Creatinine, Serum 2.34 mg/dL (0.70-1.30); EST Glomerular Filtration Rate 33 mL/min (>60); Est Glom Filt Rate - Afr Amer 39 mL/min (>60); Glucose 224 mg/dL (74-106); Iron 47 ug/dL (65-175); Iron Binding Capacity,Total 210 ug/dL (250-450); Phosphorus 3.7 mg/dL (2.5-4.9); Potassium 4.5 mmol/L (3.5-5.1); Sodium Level 141 mmol/L (136-145)
[2020-07-02 08:24] LABS: PTHIN 92.3 pg/mL (18.4-80.1)
== END ==
PROVIDERS: PCP Internal Medicine; Visit Provider Internal Medicine Nephrology
DX: N18.30 Chronic kidney disease, stage 3 unspecified (principal); N25.81 Secondary hyperparathyroidism of renal origin; D63.8 Anemia in other chronic diseases classified elsewhere
CPT/HCPCS: 36415; 80069; 83540; 83550; 83970; 85025

== ENCOUNTER → 2021-04-06 12:09 | Outpatient (CLI) | payer OTHER, SELFPAY ==
[2021-02-28 16:09] VITALS: BMI 32.5
[2021-04-06 12:49] LABS: Color, Urine Yellow (Yellow); Glucose, Dipstick Normal (Normal); Ketone-Dipstick Negative (Negative); Leukocyte Esterase-Dipstick Negative /ul (Negative); Nitrite-Dipstick Negative (Negative); Occult Blood-Urine Negative /ul (Negative); Protein-Dipstick Negative (Negative); Specific Gravity, Urine 1.015 (1.002-1.030); Urine Bilirubin Dipstick Negative (Negative); Urine Clarity Clear (Clear); Urine Urobilinogen Normal (Normal)
[2021-04-06 12:52] LABS: Erythrocyte Sedimentation Rate 15 mm/hr (0-20)
[2021-04-06 12:54] LABS: Hematocrit 27.8 % (40-54); Hemoglobin 9.5 g/dL (13.0-16.5); Mean Corp Hgb Conc 34.2 g/dL (32-36); Mean Corpuscular Hgb 28.8 pg (27.0-32.0); Mean Corpuscular Volume 84.2 fL (80-94); Mean Platelet Vol. 8.9 fl (6.2-12.0); Platelet Count 157 K/mm3 (150-450); RBC Distribution Width CV 13.3 % (11.6-14.6); RBC Distribution Width SD 40.7 fl (35.1-43.9); White Blood Count 5.7 K/mm3 (4.4-11.0)
[2021-04-06 13:03] LABS: Protein, Urine (Random) 8.1 mg/dL (<11.9); Protein:Creat Ratio 69 mg/g CRE (0-200)
[2021-04-06 13:16] LABS: Anion Gap 6 (5-15); BUN 39 mg/dL (7-18); BUN/Creat Ratio 14.8 RATIO (10-20); CRP 7.46 mg/L (0.0-3.0); Calcium,Total 8.7 mg/dL (8.5-10.1); Chloride 112 mmol/L (98-107); Creatinine, Serum 2.64 mg/dL (0.70-1.30); EST Glomerular Filtration Rate 28 mL/min (>60); Est Glom Filt Rate - Afr Amer 34 mL/min (>60); Ferritin 135 ng/mL (26-388); Glucose 88 mg/dL (74-106); Iron 39 ug/dL (65-175); Iron Binding Capacity,Total 206 ug/dL (250-450); PERCENT IRON SATURATION 18.9 % (15.0-55.0); Potassium 4.6 mmol/L (3.5-5.1); Sodium Level 139 mmol/L (136-145); Uric Acid 5.4 mg/dL (3.5-7.2)
[2021-04-06 13:20] LABS: Cholesterol 66 mg/dL (200); High Density Lipoprotein 31 mg/dL; Triglycerides 51 mg/dL; Very Low Density Lipoprotein 10 mg/dL (5-40)
[2021-04-06 13:21] LABS: Hemoglobin A1c 5.2 % (3.8-5.6)
[2021-04-08 09:41] LABS: PTHIN 73.6 pg/mL (18.4-80.1)
[2021-04-08 09:44] LABS: Vitamin D,25 Hydroxy 38.8 ng/mL
[2021-04-09 16:09] LABS: Complement C3 111 mg/dL (82-167); PROEL- A/G Ratio 1.4 (0.7-1.7); PROEL- Albumin 3.9 g/dL (2.9-4.4); PROEL- Alpha-1 Globulin 0.2 g/dL (0.0-0.4); PROEL- Alpha-2 Globulin 0.7 g/dL (0.4-1.0); PROEL- Beta Globulin 0.6 g/dL (0.7-1.3); PROEL- Gamma Globulin 1.2 g/dL (0.4-1.8); PROEL- Globulin, Total 2.8 g/dL (2.2-3.9); PROEL- TOTAL PROTEIN 6.7 g/dL (6.0-8.5); PROELU- Albumin, Urine 53.7 % (.); PROELU- Alpha-1-Globulin,Ur 0 % (.); PROELU- Alpha-2-Globulin,Ur 3.8 % (.); PROELU- Beta Globulin, Ur 24.4 % (.); PROELU- Gamma Globulin, Ur 18.1 % (.); Total Protein, Ur 4.7 mg/dL (Not Estab.)
== END ==
LOC: LAB 12:13
PROVIDERS: Student in an Organized Health Care Education/Training Program; PCP Internal Medicine; Visit Provider Nurse Practitioner Primary Care
DX: E11.22 Type 2 diabetes mellitus with diabetic chronic kidney disease (principal); I12.9 Hypertensive chronic kidney disease with stage 1 through stage 4 chronic kidney disease, or unspecified chronic kidney disease; N18.4 Chronic kidney disease, stage 4 (severe); D63.1 Anemia in chronic kidney disease; N25.81 Secondary hyperparathyroidism of renal origin; E11.21 Type 2 diabetes mellitus with diabetic nephropathy
CPT/HCPCS: 36415; 80048; 80061; 81002; 82306; 82570; 82728; 83036; 83540; 83550; 83970; 84156; 84165; 84166; 84550; 85027; 85652; 86038; 86140; 86160; 86335

== ENCOUNTER → 2022-02-27 | Outpatient (CLI) | payer OTHER, SELFPAY ==
--- NOTE | 2022-02-27 11:08 | ECHOD_ITS ---
Reason For Study: CAD Procedure This was a 2D Doppler, Color Flow transthoracic echocardiogram. The exam was of adequate technical quality. Exam performed in department. Left Ventricle Normal LV size. Left ventricular systolic function is normal. The estimated ejection fraction is 55 %. The global longitudinal strain = -19 % (normal). No evidence for diastolic dysfunction. No regional wall motion abnormalities noted. Right Ventricle Normal RV size. A moderator band is seen in the right ventricle. Normal systolic function. Atria Normal left atrium. Normal right atrium. No doppler evidence for ASD. Mitral Valve There is mild mitral annular calcification. Extension of the mitral annular calcification on the base the posterior mitral valve leaflet. Mild diffuse mitral valve thickening. Mild-Moderate (1-2+) eccentric mitral valve insufficiency. Tricuspid Valve Normal tricuspid valve. Trivial tricuspid valve insufficiency. Right ventricular systolic pressure estimated to be 30 mmHg. Aortic Valve Trisinus/trileaflet aortic valve. Normal aortic valve. Pulmonic Valve The pulmonic valve is not well visualized. Trivial pulmonic valve insufficiency. Great Vessels Normal sized aortic root. Pericardium/Pleural No pericardial effusion. MMode/2D Measurements & Calculations LVIDd: 5.1 cm IVSd: 1.4 cm Ao root diam: 3.1 cm LVIDs: 3.6 cm LVPWd: 1.4 cm RVDd: 3.7 cm FS: 29.1 % LAV(MOD-bp): 51.8 ml LVAd ap4: 32.2 cm2 LVAd ap2: 35.2 cm2 LAV(MOD-bp) Indexed: 25.1 ml/m2 LVLd ap4: 9.0 cm LVLd ap2: 9.1 cm LAV(MOD-sp2): 54.1 ml EDV(MOD-sp4): 95.8 ml EDV(MOD-sp2): 114.3 ml LAV(MOD-sp4): 46.2 ml EDV(sp4-el): 97.3 ml EDV(sp2-el): 115.7 ml LVAs ap4: 19.9 cm2 LVAs ap2: 20.9 cm2 LVLs ap4: 8.1 cm LVLs ap2: 8.1 cm ESV(MOD-sp4): 42.5 ml ESV(MOD-sp2): 46.4 ml ESV(sp4-el): 41.3 ml ESV(sp2-el): 45.5 ml EF(MOD-sp4): 55.6 % EF(MOD-sp2): 59.5 % EF(sp4-el): 57.5 % SV(MOD-sp4): 53.2 ml SV(MOD-sp2): 68.0 ml SV(sp4-el): 56.0 ml LA dimension(2D): 3.8 cm LA A4 area: 17.4 cm2 RA A4 area: 15.2 cm2 Doppler Measurements & Calculations MV E max manuel: 105.8 cm/sec Lat Peak E' Manuel: 10.7 cm/sec Med Peak E' Manuel: 7.4 cm/sec MV A max manuel: 86.1 cm/sec E/E' lat: 9.9 E/E' med: 14.2 MV E/A: 1.2 Ao V2 max: 146.1 cm/sec LV V1 max: 93.9 cm/sec PA V2 max: 105.8 cm/sec Ao max P.5 mmHg LV V1 max P.5 mmHg TR max manuel: 259.2 cm/sec TR max P.9 mmHg ECHO/Echo Complete Interpretation Summary Left ventricular systolic function is normal. The estimated ejection fraction is 55 %. The global longitudinal strain = -19 % (normal). A moderator band is seen in the right ventricle. There is mild mitral annular calcification. Extension of the mitral annular calcification on the base the posterior mitral valve leaflet. Mild diffuse mitral valve thickening. Mild-Moderate (1-2+) eccentric mitral valve insufficiency. Trivial tricuspid valve insufficiency. Trivial pulmonic valve insufficiency. Right ventricular systolic pressure estimated to be 30 mmHg. No evidence for diastolic dysfunction. Ordering Physician: Augusto Murphy Referring Physician: Vicente Jang M.D. Performed By: Ivette Ojeda RDCS
--- NOTE | 2022-02-27 11:08 | CDU_ITS ---
Reason For Study: Carotid artery bruit Rt. Velocities/BP Lt. Velocities/BP Prox CCA 95.6/18.6 cm/sec. Prox CCA 102.3/29.9 cm/sec. Mid CCA 96.9/23.9 cm/sec. Mid CCA 97.9/29.9 cm/sec. Dist CCA 90.4/25.2 cm/sec. Dist CCA 80.9/24.3 cm/sec. Prox ICA 82.6/26.5 cm/sec. Prox ICA 63/18.8 cm/sec. Mid ICA 94.3/30.4 cm/sec. Mid ICA 81.4/32.3 cm/sec. Dist ICA 86.5/33 cm/sec. Dist ICA 75.3/29.8 cm/sec. Rt. ICA/CCA = 0.99. Lt. ICA/CCA = 0.83. Prox ECA 115.2/9.5 cm/sec. Prox ECA 174.1/16 cm/sec. Lt. Vert. 63/23.7 cm/sec. Right Extracranial There is intimal thickening but no significant atherosclerotic plaque noted in the right common carotid artery. There is intimal thickening but no significant atherosclerotic plaque noted in the right internal carotid artery. There is intimal thickening but no significant atherosclerotic plaque noted in the right external carotid artery. Flow could not be demonstrated in the right vertebral artery. Left Extracranial There is intimal thickening but no significant atherosclerotic plaque noted in the left common carotid artery. There is intimal thickening but no significant atherosclerotic plaque noted in the left internal carotid artery. There is intimal thickening but no significant atherosclerotic plaque noted in the left external carotid artery. Antegrade flow is noted in the left vertebral artery. Procedure Carotid Duplex [id number]. This is a Carotid Duplex examination using B-mode, color flow and specral Doppler. Exam performed in department. VL/Carotid Duplex Ultrasound Interpretation Summary Mild (<50%) stenosis right extracranial internal carotid. Mild (<50%) stenosis left extracranial internal carotid. Flow within the left verterbral artery is antegrade. Right ve rtebral artery appears occluded. Ordering Physician: Augusto Murphy Referring Physician: Vicente Jang M.D. Performed By: Marce Dorsey RVT
== END | disposition home or self-care (01) ==
LOC: CVS 11:05
PROVIDERS: PCP Internal Medicine; Visit Provider Internal Medicine Cardiovascular Disease
DX: R09.89 Other specified symptoms and signs involving the circulatory and respiratory systems (principal); I13.0 Hypertensive heart and chronic kidney disease with heart failure and stage 1 through stage 4 chronic kidney disease, or unspecified chronic kidney disease; I50.23 Acute on chronic systolic (congestive) heart failure; I27.20 Pulmonary hypertension, unspecified; I42.9 Cardiomyopathy, unspecified; N18.30 Chronic kidney disease, stage 3 unspecified; I36.1 Nonrheumatic tricuspid (valve) insufficiency; I34.0 Nonrheumatic mitral (valve) insufficiency; I25.10 Atherosclerotic heart disease of native coronary artery without angina pectoris
CPT/HCPCS: 93306; 93880

== ENCOUNTER → 2024-04-23 | Outpatient (CLI) | payer SELFPAY ==
[2024-04-23 10:13] LABS: Absolute Lymphocyte Count 1.07 X10^3/uL (0.83-4.51); Absolute Neutrophil Count 3.5 X10^3/uL (2.0-7.7); Basophil# 0.03 X10^3/uL; Basophil% 0.6 % (0-1); Eosinophil# 0.15 X10^3/uL; Eosinophils% 2.9 % (0-5); Hematocrit 32.5 % (40-54); Hemoglobin 10.8 g/dL (13.0-16.5); Lymphocyte # 1.07 X10^3/ul (0.83-4.51); Lymphocyte % 20.7 % (19-41); Mean Corp Hgb Conc 33.2 g/dL (32-36); Mean Corpuscular Hgb 28.6 pg (27.0-32.0); Mean Corpuscular Volume 86.2 fL (80-94); Mean Platelet Vol. 9.3 fl (6.2-12.0); Monocyte# 0.37 X10^3/uL; Monocyte% 7.2 % (0-10); NRBC Flagged by Analyzer 0 % (0-5); Neutrophil # 3.53 X10^3/uL (2.7-7.7); Neutrophil % 68.2 % (47-70); Platelet Count 172 K/mm3 (150-450); RBC Distribution Width CV 14.2 % (11.6-14.6); RBC Distribution Width SD 44.1 fl (35.1-43.9); Red Blood Count 3.77 M/mm3 (4.6-6.2); White Blood Count 5.2 K/mm3 (4.4-11.0)
[2024-04-23 10:38] LABS: Anion Gap 6 (5-15); BUN 50 mg/dL (7-18); BUN/Creat Ratio 16.8 RATIO (10-20); Calcium,Total 8.8 mg/dL (8.5-10.1); Chloride 107 mmol/L (98-107); Cholesterol 66 mg/dL (200); Creatinine, Serum 2.98 mg/dL (0.70-1.30); EST Glomerular Filtration Rate 24 mL/min (>60); Est Glom Filt Rate - Afr Amer 29 mL/min (>60); Glucose 146 mg/dL (74-106); High Density Lipoprotein 32 mg/dL; Potassium 4.1 mmol/L (3.5-5.1); Sodium Level 138 mmol/L (136-145); Triglycerides 51 mg/dL; Uric Acid 6.2 mg/dL (3.5-7.2); Very Low Density Lipoprotein 10 mg/dL (5-40)
[2024-04-23 10:46] LABS: Protein, Urine (Random) < 6.0 mg/dL (<11.9)
[2024-04-23 23:00] LABS: PTHIN 141.8 pg/mL (18.4-80.1)
[2024-04-25 09:51] LABS: Vitamin D,25 Hydroxy 69.1 ng/mL
== END | disposition home or self-care (01) ==
PROVIDERS: PCP Nurse Practitioner Primary Care; Visit Provider Nurse Practitioner Primary Care
DX: E11.22 Type 2 diabetes mellitus with diabetic chronic kidney disease (principal); N18.32 Chronic kidney disease, stage 3b; D63.1 Anemia in chronic kidney disease; E21.1 Secondary hyperparathyroidism, not elsewhere classified
CPT/HCPCS: 36415; 80048; 80061; 82306; 82570; 83970; 84156; 84550; 85025